=== PATIENT | male | born 1990 | race Two or more races ===

== ENCOUNTER 2021-02-23 17:11 | Emergency (ER) | payer MEDICAID, SELFPAY ==
--- NOTE | ~2021-02-23 | XR_ITS ---
EXAMINATION: XR CHEST CLINICAL INFORMATION: Chest pain COMPARISON: None TECHNIQUE: Frontal view of the chest was obtained. FINDINGS: No significant abnormality is noted involving the heart, lungs, mediastinum, bony thorax or soft tissues. Tiny area of atelectasis/scarring noted at the left costophrenic angle. XR/XR chest 1V IMPRESSION: No acute intrathoracic disease.
--- NOTE | ~2021-02-23 | XR_ITS ---
EXAMINATION: XR SHOULDER, RIGHT CLINICAL INFORMATION: Fall COMPARISON: None TECHNIQUE: Three views of the right shoulder. FINDINGS: Elevation of the distal right clavicle in relation to the acromion process. Irregularity of the distal right clavicle suggesting nondisplaced fracture. There is subtle cortical irregularity in the region of the coronoid process concerning for a fracture. The humeral head demonstrates good articulation with the glenoid fossa. Visualized right-sided ribs demonstrate no fracture. No right-sided pneumothorax. XR/XR shoulder RT min 2V IMPRESSION: Right AC joint separation with cortical irregularity of the distal clavicle suggesting nondisplaced fracture. There is also suggestion of a subtle fracture involving the coronoid process.
--- NOTE | 2021-02-23 17:33 | ECG_ITS ---
Test Reason : CHEST PAIN Blood Pressure : / mmHG Vent. Rate : 105 BPM Atrial Rate : 105 BPM P-R Int : 116 ms QRS Dur : 090 ms QT Int : 344 ms P-R-T Axes : 057 024 033 degrees QTc Int : 454 ms Sinus tachycardia Otherwise normal ECG No previous ECGs available Referred By: Generic ED Physician Electronically Signed By:MICHAEL PRUITT
[2021-02-23 17:35] VITALS: BP 129/86; PULSE 111; RESP 18; TEMP 37.2; O2SAT 97; BMI 29.9
[2021-02-23 17:54] LABS: MANUAL DIFF FLAG NO
[2021-02-23 17:56] LABS: Basophils Percent Auto 0.4 % (0-2); Eosinophils Absolute Auto 0.3 X10*3/uL (0.0-0.4); Eosinophils Percent Auto 2.6 % (0-4); Hematocrit 44.6 % (42-52); Hemoglobin 15.5 g/dl (14.0-18.0); Imm Gran Abs Auto 0.38 X10*3/uL (0.00-0.03); Imm Gran Pct Auto 3.6 % (0.0-0.4); Lymphocytes Absolute Auto 2.1 X10*3/uL (1.2-4.9); Lymphocytes Percent Auto 20.2 % (20-40); Mean Corpuscular HGB Conc 34.8 g/dl (31.0-36.0); Mean Corpuscular Hemoglobin 30.3 pg (27.0-33.0); Mean Corpuscular Volume 87.1 fL (80-98); Mean Platelet Volume 9.1 fL (9.4-12.4); Monocytes Absolute Auto 0.8 X10*3/uL (0.1-1.2); Monocytes Percent Auto 7.7 % (2-11); Neutrophils Absolute Auto 6.9 X10*3/uL (2.0-8.3); Neutrophils Percent Auto 65.5 % (45-73); Platelet Count 292 X10*3/uL (160-400); Red Blood Count 5.12 X10*6/uL (4.60-5.80); Red Cell Distribution Width 12.1 % (11.0-16.0); White Blood Count 10.5 X10*3/uL (4.8-10.8)
[2021-02-23 18:26] LABS: Anion Gap 17 (12-20); Blood Urea Nitrogen 14 mg/dL (9-16); Calcium 8.6 mg/dL (8.4-10.2); Carbon Dioxide 19 mmol/L (22-29); Chloride 105 mmol/L (96-108); Creatinine Clr Calc Pharmacy 149.5; Estimated Glomerular Filt Rate > 60; Glucose Random 127 mg/dL (60-115); Potassium 4.4 mmol/L (3.3-5.1); Sodium 137 mmol/L (135-145)
[2021-02-23 18:33] LABS: Troponin-I High Sensitivity 3.7 ng/L (<3.5-35.0)
[2021-02-23 19:03] LABS: D Dimer < 200 NG/ML
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
[2021-02-23] MEDS: Ketorolac Tromethamine 15 MG/ML VIAL 60 MG IM (20:28)
== END 2021-02-23 20:18 | disposition home or self-care (01) ==
PROVIDERS: Physician Assistant; Emergency Provider Emergency Medicine
DX: S43.101A Unspecified dislocation of right acromioclavicular joint, initial encounter (principal); V13.4XXA Pedal cycle driver injured in collision with car, pick-up truck or van in traffic accident, initial encounter; Y93.89 Activity, other specified; Y92.414 Local residential or business street as the place of occurrence of the external cause; Y99.9 Unspecified external cause status
CPT/HCPCS: 36415; 71045; 73030; 80048; 84484; 85025; 85379; 93005; 96372; 99284; J1885

== ENCOUNTER 2021-02-27 06:43 | Emergency (ER) | payer MEDICAID, SELFPAY ==
--- NOTE | 2021-02-27 | ECG_ITS ---
Test Reason : CP Blood Pressure : / mmHG Vent. Rate : 080 BPM Atrial Rate : 080 BPM P-R Int : 118 ms QRS Dur : 088 ms QT Int : 384 ms P-R-T Axes : 032 -08 020 degrees QTc Int : 442 ms Artfiact in tracing Normal sinus rhythm Normal ECG When compared with ECG of 23-FEB-2021 17:44, No significant change was found Referred By: Generic ED Physician Electronically Signed By:MICHAEL PRUITT
--- NOTE | ~2021-02-27 | XR_ITS ---
EXAMINATION: XR CHEST CLINICAL INFORMATION: Chest pain COMPARISON: Chest 02/23/2021 TECHNIQUE: Frontal view of the chest was obtained. FINDINGS: The lungs are hypoexpanded but clear. The heart size is enlarged. The pulmonary vascularity is normal. No gross bony abnormality seen. XR/XR chest 1V IMPRESSION: Mild cardiomegaly. No acute process.
[2021-02-27 06:47] VITALS: BP 140/96; PULSE 84; RESP 16; TEMP 36.4; O2SAT 97; BMI 36.2
[2021-02-27 06:55] LABS: MANUAL DIFF FLAG NO
--- NOTE | 2021-02-27 07:01 | ED_ITS ---
HPI - Chest Pain General Chief Complaint: Chest Pain Stated Complaint: chest pain Time Seen by Provider: 02/27/21 07:01 Source: patient Mode of arrival: ambulatory Limitations: no limitations History of Present Illness HPI narrative: This is a 31 years old male presented to the emergency department with a chief complaint of right-sided chest pain. Pain started about an hour ago he describes the pain as sharp in the right side of the chest without radiation, denies any shortness of breath. MD complaint: chest pain Onset (ago): hour(s) (1) Timing of current episode: constant Prior episodes: No Onset: during rest Pain location: right chest Pain radiation: none Severity: moderate Quality: sharp Relieving factors: nothing Exacerbating factors: inspiration Treatment prior to arrival: none Risk Factors Coronary artery disease risk factors: none Related Data Previous Rx's Medication Instructions Recorded ketorolac 10 mg tablet 10 mg PO Q8H PRN #10 tab 02/23/21 Allergies Allergy/AdvReac Type Severity Reaction Status Date / Time bee pollen [BEE STINGS] Allergy Unknown SWELLING Verified 02/27/21 06:52 Review of Systems Review of Systems: Yes all other systems are reviewed and are negative Constitutional: Constitutional: Denies fever(s) Cardiovascular: Cardiovascular: Denies chest pain with activity Respiratory: Respiratory: Denies cough Gastrointestinal: Gastrointestinal: Denies diarrhea and Denies nausea Psychiatric: Psychiatric: Reports no additional psychiatric complaints [facility] Social History Social History (Updated 02/27/21 @ 07:07 by Jovani Jones MD) Patient Tobacco Use Status: Never used Tobacco Smoked in Last 30 Days: Yes Use of substances other than those prescribed or required for medical reasons: Yes Substance Use Type: Marijuana Substance Use Frequency: Daily Last Used Substance: Hours (ago) Any prior treatment program specific to substance use: No Advance Directives: No Advance Directives Information Provided: No Physical Exam Vital Signs: Vital Signs: Last Vital Signs Temp 97.6 F 02/27/21 07:22 Pulse 86 02/27/21 08:05 Resp 19 02/27/21 08:05 BP 132/90 H 02/27/21 08:05 Pulse Ox 97 02/27/21 08:05 Body Mass Index 36.2 Const: General: cooperative and healthy appearing Nutritional Appearance: average body habitus Orientation/consciousness: oriented to person, oriented to place and oriented to time HENMT: Head: Yes normal to inspection, Yes normocephalic and Yes atraumatic Ears: hearing grossly normal bilaterally General nose exam: Normal external nose present Face and sinus: Yes normal facial exam Mouth: Normal oral and palatal mucosa present Neck: Neck: Yes normal visual inspection and Yes full ROM Chest: Chest palpation & inspection: normal inspection of the chest Resp: Effort & Inspection: normal respiratory effort and no respiratory distress Auscultation: clear to auscultation bilaterally Cardio: Jugular venous distension: no JVD Rate: regular rate Rhythm: regular rhythm GI: Inspection: Yes normal to inspection Palpation (GI): Soft to palpation, not firm, nontender and no guarding Skin: General skin exam: no rashes or lesions noted, elasticity normal and turgor normal Rashes: no rashes Neuro: General: oriented to person, oriented to place and oriented to time Course Reevaluation(s) Reevaluation #1: PATIENT WAS RE-EXAMINED AT 10:50 A IS CURRENTLY ASYMPTOMATIC IS CHEST PAIN IS GONE, DELTA TROPONIN IS NEGATIVE I THINK THIS PATIENT CAN BE SAFELY DISCHARGED HOME WITH FOLLOW-UP WITH HIS PRIMARY CARE PHYSICIAN HIS HEART SCORE IS 0 MDM - Chest Pain Lab Data Result diagrams: 02/27/21 06:50 02/27/21 06:50 Labs: Lab Results 02/27/21 02/27/21 02/27/21 Range/Units 06:50 06:50 06:50 WBC 9.2 (4.8-10.8) X10*3/uL RBC 5.46 (4.60-5.80) X10*6/uL Hgb 16.5 (14.0-18.0) g/dl Hct 47.8 (42-52) % MCV 87.5 (80-98) fL MCH 30.2 (27.0-33.0) pg MCHC 34.5 (31.0-36.0) g/dl RDW 12.2 (11.0-16.0) % Plt Count 290 (160-400) X10*3/uL MPV 9.0 L (9.4-12.4) fL Immature Gran % (Auto) 4.9 H (0.0-0.4) % Neut % (Auto) 51.8 (45-73) % Lymph % (Auto) 28.5 (20-40) % [place] % (Auto) 10.3 (2-11) % Eos % (Auto) 3.8 (0-4) % Baso % (Auto) 0.7 (0-2) % Lymph # (Auto) 2.6 (1.2-4.9) X10*3/uL [place] # (Auto) 0.9 (0.1-1.2) X10*3/uL Eos # (Auto) 0.4 (0.0-0.4) X10*3/uL Baso # (Auto) 0.1 (0.0-0.2) X10*3/uL Abs Immat Gran (auto) 0.45 H (0.00-0.03) X10*3/uL Absolute Neuts (auto) 4.8 (2.0-8.3) X10*3/uL Absolute Nucleated RBC 0.000 (0.0-0.012) X10*3/uL Nucleated RBC % (auto) 0.0 (0.0-0.2) /100WBC D-Dimer NG/ML Sodium 137 (135-145) mmol/L Potassium 4.7 (3.3-5.1) mmol/L Chloride 102 (96-108) mmol/L Carbon Dioxide 26 (22-29) mmol/L Anion Gap 14 (12-20) BUN 15 (9-16) mg/dL Creatinine 0.75 (0.5-1.4) mg/dL Estim Creat Clear Calc 188.1 Estimated GFR > 60 Random Glucose 90 (60-115) mg/dL Calcium 9.5 D (8.4-10.2) mg/dL Total Bilirubin (0.0-1.0) mg/dL Direct Bilirubin (0.0-0.5) mg/dL AST (5-37) U/L ALT (0-40) U/L Alkaline Phosphatase (39-117) U/L Troponin I High Sens 3.8 (<3.5-35.0) ng/L Total Protein (6.5-8.0) g/dL Albumin (3.5-5.0) g/dL 02/27/21 02/27/21 02/27/21 Range/Units 08:03 08:03 09:51 WBC (4.8-10.8) X10*3/uL RBC (4.60-5.80) X10*6/uL Hgb (14.0-18.0) g/dl Hct (42-52) % MCV (80-98) fL MCH (27.0-33.0) pg MCHC (31.0-36.0) g/dl RDW (11.0-16.0) % Plt Count (160-400) X10*3/uL MPV (9.4-12.4) fL Immature Gran % (Auto) (0.0-0.4) % Neut % (Auto) (45-73) % Lymph % (Auto) (20-40) % [place] % (Auto) (2-11) % Eos % (Auto) (0-4) % Baso % (Auto) (0-2) % Lymph # (Auto) (1.2-4.9) X10*3/uL [place] # (Auto) (0.1-1.2) X10*3/uL Eos # (Auto) (0.0-0.4) X10*3/uL Baso # (Auto) (0.0-0.2) X10*3/uL Abs Immat Gran (auto) (0.00-0.03) X10*3/uL Absolute Neuts (auto) (2.0-8.3) X10*3/uL Absolute Nucleated RBC (0.0-0.012) X10*3/uL Nucleated RBC % (auto) (0.0-0.2) /100WBC D-Dimer < 200 NG/ML Sodium (135-145) mmol/L Potassium (3.3-5.1) mmol/L Chloride (96-108) mmol/L Carbon Dioxide (22-29) mmol/L Anion Gap (12-20) BUN (9-16) mg/dL Creatinine (0.5-1.4) mg/dL Estim Creat Clear Calc Estimated GFR Random Glucose (60-115) mg/dL Calcium (8.4-10.2) mg/dL Total Bilirubin 0.3 (0.0-1.0) mg/dL Direct Bilirubin < 0.2 (0.0-0.5) mg/dL AST 81 H (5-37) U/L ALT 187 H (0-40) U/L Alkaline Phosphatase 52 (39-117) U/L Troponin I High Sens 3.7 (<3.5-35.0) ng/L Total Protein 6.7 (6.5-8.0) g/dL Albumin 3.9 (3.5-5.0) g/dL ECG Data ECG #1: ECG interpretation date: 02/27/21 ECG interpretation time: 07:10 Pacemaker model: Normal sinus rhythm a rate 85 ST-T segment isoelectric no ischemic changes Discharge Plan Discharge Clinical Impression: Chest pain Patient Disposition: Home, Self-Care Instructions: Chest Pain (ED) Prescriptions: No Action ketorolac 10 mg tablet 10 mg PO Q8H PRN (Reason: pain) Qty: 10 RF: 0 Referrals: Elvira Fu RN [Emergency Nurse] - 2 days
[2021-02-27 07:09] LABS: Basophils Absolute Auto 0.1 X10*3/uL (0.0-0.2); Basophils Percent Auto 0.7 % (0-2); Eosinophils Absolute Auto 0.4 X10*3/uL (0.0-0.4); Eosinophils Percent Auto 3.8 % (0-4); Hematocrit 47.8 % (42-52); Hemoglobin 16.5 g/dl (14.0-18.0); Imm Gran Abs Auto 0.45 X10*3/uL (0.00-0.03); Imm Gran Pct Auto 4.9 % (0.0-0.4); Lymphocytes Absolute Auto 2.6 X10*3/uL (1.2-4.9); Lymphocytes Percent Auto 28.5 % (20-40); Mean Corpuscular HGB Conc 34.5 g/dl (31.0-36.0); Mean Corpuscular Hemoglobin 30.2 pg (27.0-33.0); Mean Corpuscular Volume 87.5 fL (80-98); Monocytes Absolute Auto 0.9 X10*3/uL (0.1-1.2); Monocytes Percent Auto 10.3 % (2-11); Neutrophils Absolute Auto 4.8 X10*3/uL (2.0-8.3); Neutrophils Percent Auto 51.8 % (45-73); Platelet Count 290 X10*3/uL (160-400); Red Blood Count 5.46 X10*6/uL (4.60-5.80); Red Cell Distribution Width 12.2 % (11.0-16.0); White Blood Count 9.2 X10*3/uL (4.8-10.8)
[2021-02-27] MEDS: Ketorolac Tromethamine 15 MG/ML VIAL IVPUSH (07:18)
[2021-02-27 07:19] LABS: Troponin-I High Sensitivity 3.8 ng/L (<3.5-35.0)
[2021-02-27 07:21] LABS: Anion Gap 14 (12-20); Blood Urea Nitrogen 15 mg/dL (9-16); Calcium 9.5 mg/dL (8.4-10.2); Carbon Dioxide 26 mmol/L (22-29); Chloride 102 mmol/L (96-108); Creatinine Clr Calc Pharmacy 188.1; Estimated Glomerular Filt Rate > 60; Glucose Random 90 mg/dL (60-115); Potassium 4.7 mmol/L (3.3-5.1); Sodium 137 mmol/L (135-145)
[2021-02-27 07:22] VITALS: BP 132/88; PULSE 80; RESP 23; TEMP 36.4; O2SAT 98
--- NOTE | 2021-02-27 07:43 | PC.NURSE ---
Pt alert and oriented x3, reports right sided chest pain that started approximately an hour ago. He states the pain does not radiate. Pt is NS on monitor. No sob, no difficulty breathing. No apparent distress noted. LS clear bilaterally. Pt resting quietly, awaiting chest x-ray. Mother at bedside. Medication given as documented.
[2021-02-27 08:05] VITALS: BP 132/90; PULSE 86; RESP 19; O2SAT 97
[2021-02-27 08:34] LABS: D Dimer < 200 NG/ML
[2021-02-27 09:01] LABS: Alanine Aminotransferase 187 U/L (0-40); Albumin Level 3.9 g/dL (3.5-5.0); Alkaline Phosphatase 52 U/L (39-117); Aspartate Amino Transferase 81 U/L (5-37); Bilirubin Direct < 0.2 mg/dL (0.0-0.5); Bilirubin Total 0.3 mg/dL (0.0-1.0); Total Protein 6.7 g/dL (6.5-8.0)
[2021-02-27 10:27] LABS: Troponin-I High Sensitivity 3.7 ng/L (<3.5-35.0)
== END 2021-02-27 11:08 | disposition home or self-care (01) ==
PROVIDERS: Emergency Provider Emergency Medicine
DX: R07.9 Chest pain, unspecified (principal)
CPT/HCPCS: 36415; 71045; 80048; 80076; 84484; 85025; 85379; 93005; 96374; 99285; J1885

== ENCOUNTER 2021-04-22 15:17 | Emergency (ER) | payer MEDICAID, SELFPAY ==
[2021-04-22 15:25] VITALS: BP 140/94; PULSE 98; O2SAT 97
[2021-04-22 15:58] VITALS: BP 167/81; PULSE 91; RESP 18; TEMP 37.1; O2SAT 98; BMI 33.9
== END 2021-04-22 20:24 | disposition left against medical advice (07) ==
LOC: HO.ED 20:12
PROVIDERS: Emergency Provider Emergency Medicine
DX: L23.9 Allergic contact dermatitis, unspecified cause (principal)
CPT/HCPCS: 99281

== ENCOUNTER 2021-05-17 11:17 | Emergency (ER) | payer MEDICAID, SELFPAY ==
--- NOTE | ~2021-05-17 | XR_ITS ---
EXAMINATION: XR CHEST CLINICAL INFORMATION: Cough. COMPARISON: 02/27/2021 chest radiograph. TECHNIQUE: Frontal view of the chest was obtained. FINDINGS: No significant abnormality is noted involving the heart, lungs, mediastinum, bony thorax or soft tissues. XR/XR chest 1V IMPRESSION: No acute cardiopulmonary process.
[2021-05-17 11:26] VITALS: BP 142/118; PULSE 80; O2SAT 99
[2021-05-17 12:32] VITALS: BP 148/99; PULSE 72; RESP 18; TEMP 36.6; O2SAT 100; BMI 42.3
--- NOTE | 2021-05-17 12:32 | ED_ITS ---
HPI - Nausea/Vomiting/Diarrhea General Chief complaint: General Medical <Alba Corona NP - Last Filed: 05/17/21 18:45> Stated complaint: NAUSEA/VOMITING/COUGH <Alba Corona NP - Last Filed: 05/17/21 18:45> Time Seen by Provider: 05/17/21 12:32 <Alba Corona NP - Last Filed: 05/17/21 18:45> Related Data Home medications: Previous Rx's Medication Instructions Recorded ketorolac 10 mg tablet 10 mg PO Q8H PRN #10 tab 02/23/21 ondansetron 4 mg disintegrating 4 mg PO Q6H #14 tab 05/17/21 tablet <Alba Corona NP - Last Filed: 05/17/21 18:45> Allergies/Adverse reactions: Allergies Allergy/AdvReac Type Severity Reaction Status Date / Time bee pollen [BEE STINGS] Allergy Unknown SWELLING Verified 02/27/21 06:52 seafood Allergy Itching Verified 04/22/21 15:57 <Alba Corona NP - Last Filed: 05/17/21 18:45> [facility] Past Medical History Medical History: Medical History HTN (hypertension) TBI (traumatic brain injury) <Alba Corona NP - Last Filed: 05/17/21 18:45> Social History Social History: Social History Patient Tobacco Use Status: Never used Tobacco Substance Use Type: Marijuana Advance Directives: Yes Advance Directives Information Provided: Yes Advance Directives on File: No <Alba Corona NP - Last Filed: 05/17/21 18:45> Physical Exam Vital Signs: Vital Signs: Last Vital Signs Temp 97.8 F 05/17/21 12:32 Pulse 72 05/17/21 12:32 Resp 18 05/17/21 12:32 BP 148/99 H 05/17/21 12:32 Pulse Ox 100 05/17/21 12:32 BMI result Body Mass Index 42.3 <Alba Corona NP - Last Filed: 05/17/21 18:45> Vital Signs: Last Vital Signs Temp 97.8 F 05/17/21 12:32 Pulse 72 05/17/21 12:32 Resp 18 05/17/21 12:32 BP 148/99 H 05/17/21 12:32 Pulse Ox 100 05/17/21 12:32 BMI result Body Mass Index 42.3 <Carlos Lilly DO - Last Filed: 08/03/21 11:10> Course Course Course Narrative: 1230-This is a rapid medical exam. 31yo male here with nausea/vomiting since last evening with streaks of blood, nasal congestion, chest discomfort with deep breathing, cough, subjective fevers, chills. No abdominal pain or diarrhea. Well appearing. VSS. Will check rapid covid, CXR, labs. Deferred additional HPI, ROS, PE to primary provider. <Alba Corona NP - Last Filed: 05/17/21 18:45> MDM - Nausea/Vomiting/Diarrhea Lab Data Result diagrams: : 05/17/21 13:55 05/17/21 13:55 <Alba Corona NP - Last Filed: 05/17/21 18:45> Labs: Lab Results 05/17/21 05/17/21 05/17/21 Range/Units 13:52 13:55 13:55 WBC 9.4 (4.8-10.8) X10*3/uL RBC 5.23 (4.60-5.80) X10*6/uL Hgb 15.9 (14.0-18.0) g/dl Hct 46.6 (42-52) % MCV 89.1 (80-98) fL MCH 30.4 (27.0-33.0) pg MCHC 34.1 (31.0-36.0) g/dl RDW 12.2 (11.0-16.0) % Plt Count 254 (160-400) X10*3/uL MPV 9.0 L (9.4-12.4) fL Immature Gran % (Auto) 1.2 H (0.0-0.4) % Neut % (Auto) 63.9 (45-73) % Lymph % (Auto) 19.4 L (20-40) % Kinney % (Auto) 11.0 (2-11) % Eos % (Auto) 4.1 H (0-4) % Baso % (Auto) 0.4 (0-2) % Lymph # (Auto) 1.8 (1.2-4.9) X10*3/uL Kinney # (Auto) 1.0 (0.1-1.2) X10*3/uL Eos # (Auto) 0.4 (0.0-0.4) X10*3/uL Baso # (Auto) 0.0 (0.0-0.2) X10*3/uL Abs Immat Gran (auto) 0.11 H (0.00-0.03) X10*3/uL Absolute Neuts (auto) 6.0 (2.0-8.3) X10*3/uL Absolute Nucleated RBC 0.000 (0.0-0.012) X10*3/uL Nucleated RBC % (auto) 0.0 (0.0-0.2) /100WBC Sodium 137 (135-145) mmol/L Potassium 4.2 (3.3-5.1) mmol/L Chloride 102 (96-108) mmol/L Carbon Dioxide 28 (22-29) mmol/L Anion Gap 11 L (12-20) BUN 11 (9-16) mg/dL Creatinine 0.86 (0.5-1.4) mg/dL Estim Creat Clear Calc 177.9 Estimated GFR > 60 Random Glucose 87 (60-115) mg/dL Calcium 8.9 D (8.4-10.2) mg/dL Total Bilirubin 1.1 H (0.0-1.0) mg/dL AST 18 D (5-37) U/L ALT 23 (0-40) U/L Alkaline Phosphatase 68 D (39-117) U/L Total Protein 7.1 (6.5-8.0) g/dL Albumin 4.1 (3.5-5.0) g/dL COVID-19 (GIRISH) Negative (Negative) COVID-19 Clin Com See Note <Alba Corona, COLLINS - Last Filed: 05/17/21 18:45> Lab Results 05/17/21 05/17/21 05/17/21 Range/Units 13:52 13:55 13:55 WBC 9.4 (4.8-10.8) X10*3/uL RBC 5.23 (4.60-5.80) X10*6/uL Hgb 15.9 (14.0-18.0) g/dl Hct 46.6 (42-52) % MCV 89.1 (80-98) fL MCH 30.4 (27.0-33.0) pg MCHC 34.1 (31.0-36.0) g/dl RDW 12.2 (11.0-16.0) % Plt Count 254 (160-400) X10*3/uL MPV 9.0 L (9.4-12.4) fL Immature Gran % (Auto) 1.2 H (0.0-0.4) % Neut % (Auto) 63.9 (45-73) % Lymph % (Auto) 19.4 L (20-40) % Kinney % (Auto) 11.0 (2-11) % Eos % (Auto) 4.1 H (0-4) % Baso % (Auto) 0.4 (0-2) % Lymph # (Auto) 1.8 (1.2-4.9) X10*3/uL Kinney # (Auto) 1.0 (0.1-1.2) X10*3/uL Eos # (Auto) 0.4 (0.0-0.4) X10*3/uL Baso # (Auto) 0.0 (0.0-0.2) X10*3/uL Abs Immat Gran (auto) 0.11 H (0.00-0.03) X10*3/uL Absolute Neuts (auto) 6.0 (2.0-8.3) X10*3/uL Absolute Nucleated RBC 0.000 (0.0-0.012) X10*3/uL Nucleated RBC % (auto) 0.0 (0.0-0.2) /100WBC Sodium 137 (135-145) mmol/L Potassium 4.2 (3.3-5.1) mmol/L Chloride 102 (96-108) mmol/L Carbon Dioxide 28 (22-29) mmol/L Anion Gap 11 L (12-20) BUN 11 (9-16) mg/dL Creatinine 0.86 (0.5-1.4) mg/dL Estim Creat Clear Calc 177.9 Estimated GFR > 60 Random Glucose 87 (60-115) mg/dL Calcium 8.9 D (8.4-10.2) mg/dL Total Bilirubin 1.1 H (0.0-1.0) mg/dL AST 18 D (5-37) U/L ALT 23 (0-40) U/L Alkaline Phosphatase 68 D (39-117) U/L Total Protein 7.1 (6.5-8.0) g/dL Albumin 4.1 (3.5-5.0) g/dL COVID-19 ([facility]IR[facility]) Negative (Negative) COVID-19 Clin Com See Note <Carlos Lilly DO - Last Filed: 08/03/21 11:10> Discharge Plan Discharge Clinical Impression: URI (upper respiratory infection), COVID <Alba Corona NP - Last Filed: 05/17/21 18:45> Patient Disposition: Home, Self-Care <Alba Corona NP - Last Filed: 05/17/21 18:45> Instructions: Acute Bronchitis (ED), Viral Syndrome (ED) <Alba Corona NP - Last Filed: 05/17/21 18:45> Additional Instructions: Please quarantine at home you likely have COVID we will call you with your COVID results if you have any other concerns please do not hesitate to come back to emergency department. <Alba Corona NP - Last Filed: 05/17/21 18:45> Prescriptions: New ondansetron 4 mg tablet,disintegrating 4 mg PO Q6H Qty: 14 RF: 0 No Action ketorolac 10 mg tablet 10 mg PO Q8H PRN (Reason: pain) Qty: 10 RF: 0 <Alba Corona NP - Last Filed: 05/17/21 18:45> Stand Alone Forms: Work/School Release <Alba Corona NP - Last Filed: 05/17/21 18:45> Interventions: ED Discharge Assessment Last Done: 05/17/21 14:22 <Alba Corona NP - Last Filed: 05/17/21 18:45> Discharge Date/Time: 05/17/21 14:24 <Alba Corona NP - Last Filed: 05/17/21 18:45>
--- NOTE | 2021-05-17 13:58 | ED.URI ---
HPI - URI/Sore Throat General Chief Complaint: General Medical Stated Complaint: NAUSEA/VOMITING/COUGH Time Seen by Provider: 05/17/21 12:32 Source: patient Mode of arrival: ambulatory Limitations: no limitations History of Present Illness HPI Narrative: 31-year-old male presents emergency department after starting with upper respiratory symptoms last night. Runny nose aches fevers. Patient is unvaccinated for COVID he has no significant medical problems he complained of nausea and vomiting when he checked in but denies nausea vomiting for me. MD elicited complaint: fever, cough, sore throat, rhinorrhea and nasal congestion Related Data Previous Rx's Medication Instructions Recorded ketorolac 10 mg tablet 10 mg PO Q8H PRN #10 tab 02/23/21 ondansetron 4 mg disintegrating 4 mg PO Q6H #14 tab 05/17/21 tablet Allergies Allergy/AdvReac Type Severity Reaction Status Date / Time bee pollen [BEE STINGS] Allergy Unknown SWELLING Verified 02/27/21 06:52 seafood Allergy Itching Verified 04/22/21 15:57 Review of Systems Review of Systems: Review of systems: General: fever chills Patient denies any recent illness or falls Musculoskeletal: body aches Denies back pain oror other injuries HEENT: runny nose denies headache, , ear pain Respiratory: cough denies shortness of breath, Cardiovascular: no chest pain or palpitations : denies dysuria, frequency Abdomen: no nausea vomiting denies abdominal pain Extremities: no swelling, no pain Skin: no diaphoresis Yes all other systems are reviewed and are negative PMFSH Social History Social History (Updated 02/27/21 @ 07:07 by Jovani Jones MD) Patient Tobacco Use Status: Never used Tobacco Substance Use Type: Marijuana Advance Directives: No Advance Directives Information Provided: No Advance Directives on File: No Physical Exam Vital Signs: Vital Signs: Last Vital Signs Temp 97.8 F 05/17/21 12:32 Pulse 72 05/17/21 12:32 Resp 18 05/17/21 12:32 BP 148/99 H 05/17/21 12:32 Pulse Ox 100 05/17/21 12:32 Body Mass Index 42.3 General: Well-appearing well-nourished in no signs of distress HEENT: Normocephalic atraumatic Neck: No signs of JVD, no masses no tenderness or lymphadenopathy Cardiovascular: Regular rate and rhythm Respiratory: Clear to auscultation bilaterally Abdomen: Soft nontender no masses Extremities: Normal pedal pulses no signs of edema Skin: Dry warm no rashes Back: No tenderness full ROM MDM - URI/Sore Throat MDM Narrative Medical decision making narrative: Patient with upper respiratory infection versus bronchitis versus viral infection versus COVID. I will send a COVID swab on discharge the patient home with PCP follow-up. Discharge Plan Discharge Clinical Impression: URI (upper respiratory infection), COVID Patient Disposition: Home, Self-Care Instructions: Acute Bronchitis (ED), Viral Syndrome (ED) Additional Instructions: Please quarantine at home you likely have COVID we will call you with your COVID results if you have any other concerns please do not hesitate to come back to emergency department. Prescriptions: New ondansetron 4 mg tablet,disintegrating 4 mg PO Q6H Qty: 14 RF: 0 No Action ketorolac 10 mg tablet 10 mg PO Q8H PRN (Reason: pain) Qty: 10 RF: 0 Stand Alone Forms: Work/School Release
[2021-05-17 14:01] LABS: MANUAL DIFF FLAG NO
[2021-05-17 14:03] LABS: Basophils Percent Auto 0.4 % (0-2); Eosinophils Absolute Auto 0.4 X10*3/uL (0.0-0.4); Eosinophils Percent Auto 4.1 % (0-4); Hematocrit 46.6 % (42-52); Hemoglobin 15.9 g/dl (14.0-18.0); Imm Gran Abs Auto 0.11 X10*3/uL (0.00-0.03); Imm Gran Pct Auto 1.2 % (0.0-0.4); Lymphocytes Absolute Auto 1.8 X10*3/uL (1.2-4.9); Lymphocytes Percent Auto 19.4 % (20-40); Mean Corpuscular HGB Conc 34.1 g/dl (31.0-36.0); Mean Corpuscular Hemoglobin 30.4 pg (27.0-33.0); Mean Corpuscular Volume 89.1 fL (80-98); Neutrophils Percent Auto 63.9 % (45-73); Platelet Count 254 X10*3/uL (160-400); Red Blood Count 5.23 X10*6/uL (4.60-5.80); Red Cell Distribution Width 12.2 % (11.0-16.0); White Blood Count 9.4 X10*3/uL (4.8-10.8)
--- NOTE | 2021-05-17 14:08 | PC.NURSE ---
AMBULATORY INTO [facility], GAIT STEADY PT EVALUATED BY DR ARIAS UPON ARRIVAL TO [facility]. PT AWAKE, ALERT AND ORIENTED X 3. SKIN WARM AND DRY. RESP UNLABORED. SPEAKING IN FULL CLEAR SENTENCES. C/O MILD NAUSEA. PLAN IS FOR MEDICATION AND DISCHARGE. PT AGREEABLE TO THIS PLAN.
[2021-05-17 14:17] LABS: COVID-19 Test Negative (Negative)
[2021-05-17] MEDS: Ketorolac Tromethamine 15 MG/ML VIAL IM (14:17)
[2021-05-17] MEDS: Acetaminophen 325 MG TABLET 650 MG PO (14:18)
[2021-05-17] MEDS: Ondansetron ODT 4 MG TAB.RAPDIS TRANSLINGU (14:18)
[2021-05-17 14:20] LABS: Alanine Aminotransferase 23 U/L (0-40); Albumin Level 4.1 g/dL (3.5-5.0); Alkaline Phosphatase 68 U/L (39-117); Anion Gap 11 (12-20); Aspartate Amino Transferase 18 U/L (5-37); Bilirubin Total 1.1 mg/dL (0.0-1.0); Blood Urea Nitrogen 11 mg/dL (9-16); Calcium 8.9 mg/dL (8.4-10.2); Carbon Dioxide 28 mmol/L (22-29); Chloride 102 mmol/L (96-108); Creatinine Clr Calc Pharmacy 177.9; Estimated Glomerular Filt Rate > 60; Glucose Random 87 mg/dL (60-115); Potassium 4.2 mmol/L (3.3-5.1); Sodium 137 mmol/L (135-145); Total Protein 7.1 g/dL (6.5-8.0)
== END 2021-05-17 14:24 | disposition home or self-care (01) ==
PROVIDERS: Emergency Provider Student in an Organized Health Care Education/Training Program
DX: U07.1 COVID-19 (principal); J06.9 Acute upper respiratory infection, unspecified; R11.2 Nausea with vomiting, unspecified; R05.9 Cough, unspecified; Z79.899 Other long term (current) drug therapy
CPT/HCPCS: 36415; 71045; 80053; 85025; 87635; 96372; 99283; 99284; J1885

== ENCOUNTER 2021-07-20 07:24 | Emergency (ER) | payer OTHER, SELFPAY ==
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
--- NOTE | 2021-07-20 07:29 | ECG_ITS ---
Test Reason : CP Blood Pressure : / mmHG Vent. Rate : 056 BPM Atrial Rate : 056 BPM P-R Int : 138 ms QRS Dur : 098 ms QT Int : 402 ms P-R-T Axes : 034 -02 021 degrees QTc Int : 387 ms Sinus bradycardia with sinus arrhythmia Normal ECG When compared with ECG of 27-FEB-2021 06:51, QT has shortened Referred By: Generic ED Physician Electronically Signed By:MICHAEL PRUITT
[2021-07-20 07:32] VITALS: BP 186/95; PULSE 64; RESP 20; TEMP 36.4; O2SAT 100; BMI 57.2
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
[2021-07-20 08:06] VITALS: BP 163/105; PULSE 70; RESP 16; TEMP 36.7; O2SAT 99
[2021-07-20 08:07] LABS: MANUAL DIFF FLAG NO
[2021-07-20 08:10] LABS: Basophils Percent Auto 0.3 % (0-2); Eosinophils Absolute Auto 0.2 X10*3/uL (0.0-0.4); Eosinophils Percent Auto 3.4 % (0-4); Hematocrit 47.5 % (42.0-52.0); Hemoglobin 16.6 g/dl (14.0-18.0); Imm Gran Abs Auto 0.05 X10*3/uL (0.00-0.03); Imm Gran Pct Auto 0.8 % (0.0-0.4); Lymphocytes Absolute Auto 2.2 X10*3/uL (1.2-4.9); Lymphocytes Percent Auto 37.1 % (20-40); Mean Corpuscular HGB Conc 34.9 g/dl (31.0-36.0); Mean Corpuscular Hemoglobin 30.1 pg (27.0-33.0); Mean Corpuscular Volume 86.1 fL (80.0-98.0); Mean Platelet Volume 8.9 fL (9.4-12.4); Monocytes Absolute Auto 0.6 X10*3/uL (0.1-1.2); Monocytes Percent Auto 10.2 % (2-11); Neutrophils Absolute Auto 2.9 x10*3/uL (2.0-8.3); Neutrophils Percent Auto 48.2 % (45-73); Platelet Count 264 X10*3/uL (160-400); Red Blood Count 5.52 X10*6/uL (4.60-5.80); Red Cell Distribution Width 11.8 % (11.0-16.0); White Blood Count 5.9 X10*3/uL (4.8-10.8)
[2021-07-20] MEDS: Cyclobenzaprine HCl 10 MG TABLET PO (08:14)
[2021-07-20 08:24] LABS: COVID-19 Test Negative (Negative); D Dimer High Sensitivity < 150 NG/ML
[2021-07-20 08:27] LABS: Alanine Aminotransferase 19 U/L (0-40); Albumin Level 4.2 g/dL (3.5-5.0); Alkaline Phosphatase 61 U/L (39-117); Anion Gap 10 (12-20); Aspartate Amino Transferase 13 U/L (5-37); Bilirubin Direct 0.3 mg/dL (0.0-0.5); Bilirubin Total 0.8 mg/dL (0.0-1.0); Blood Urea Nitrogen 10 mg/dL (9-16); Calcium 9.2 mg/dL (8.4-10.2); Carbon Dioxide 27 mmol/L (22-29); Chloride 106 mmol/L (96-108); Estimated Glomerular Filt Rate > 60; Glucose Random 101 mg/dL (60-115); Lipase 27 U/L (8-78); Magnesium 2.1 mg/dL (1.6-2.6); Potassium 4.3 mmol/L (3.3-5.1); Sodium 139 mmol/L (135-145); Total Protein 7.5 g/dL (6.5-8.0)
[2021-07-20 08:30] LABS: Troponin-I High Sensitivity < 3.5 ng/L (<3.5-35.0)
[2021-07-20 10:16] VITALS: BP 136/94; PULSE 60; RESP 18
[2021-07-20 11:20] LABS: Troponin-I High Sensitivity < 3.5 ng/L (<3.5-35.0)
== END 2021-07-20 12:21 | disposition home or self-care (01) ==
PROVIDERS: Emergency Provider Emergency Medicine
DX: R07.89 Other chest pain (principal); I10 Essential (primary) hypertension; Z87.820 Personal history of traumatic brain injury; Z20.822 Contact with and (suspected) exposure to COVID-19
CPT/HCPCS: 36415; 71045; 80048; 80076; 83690; 83735; 84484; 85025; 85379; 87635; 93005; 99283; 99284

== ENCOUNTER 2021-08-04 14:24 | Emergency (ER) | payer OTHER, SELFPAY ==
--- NOTE | 2021-08-04 | ECG_ITS ---
Test Reason : nausea/vomiting Blood Pressure : / mmHG Vent. Rate : 065 BPM Atrial Rate : 065 BPM P-R Int : 124 ms QRS Dur : 104 ms QT Int : 408 ms P-R-T Axes : 032 001 012 degrees QTc Int : 424 ms Normal sinus rhythm with sinus arrhythmia Normal ECG When compared with ECG of 20-JUL-2021 07:32, No significant change was found Referred By: Generic ED Physician Electronically Signed By:MAYANK RIVERA MD
[2021-08-04 16:13] VITALS: BP 154/108; PULSE 78; RESP 18; TEMP 36.6; O2SAT 98; BMI 41.8
[2021-08-04 17:05] LABS: MANUAL DIFF FLAG NO
[2021-08-04 17:10] LABS: Basophils Percent Auto 0.4 % (0-2); Eosinophils Absolute Auto 0.1 X10*3/uL (0.0-0.4); Eosinophils Percent Auto 1.1 % (0-4); Hematocrit 50.6 % (42.0-52.0); Hemoglobin 17.4 g/dl (14.0-18.0); Imm Gran Abs Auto 0.08 X10*3/uL (0.00-0.03); Imm Gran Pct Auto 0.8 % (0.0-0.4); Lymphocytes Absolute Auto 3.2 X10*3/uL (1.2-4.9); Lymphocytes Percent Auto 30.4 % (20-40); Mean Corpuscular HGB Conc 34.4 g/dl (31.0-36.0); Mean Corpuscular Hemoglobin 29.8 pg (27.0-33.0); Mean Corpuscular Volume 86.6 fL (80.0-98.0); Monocytes Absolute Auto 0.7 X10*3/uL (0.1-1.2); Monocytes Percent Auto 6.3 % (2-11); Neutrophils Absolute Auto 6.4 x10*3/uL (2.0-8.3); Platelet Count 311 X10*3/uL (160-400); Red Blood Count 5.84 X10*6/uL (4.60-5.80); White Blood Count 10.5 X10*3/uL (4.8-10.8)
[2021-08-04 17:23] LABS: COVID-19 Test Negative (Negative); IDNOW Serial# 9DD0AD1C
[2021-08-04 17:28] LABS: Troponin-I High Sensitivity 4.5 ng/L (<3.5-35.0)
[2021-08-04 17:30] LABS: Alanine Aminotransferase 22 U/L (0-40); Albumin Level 4.4 g/dL (3.5-5.0); Alkaline Phosphatase 68 U/L (39-117); Anion Gap 15 (12-20); Aspartate Amino Transferase 20 U/L (5-37); Bilirubin Total 0.8 mg/dL (0.0-1.0); Blood Urea Nitrogen 11 mg/dL (9-16); Calcium 9.9 mg/dL (8.4-10.2); Carbon Dioxide 24 mmol/L (22-29); Chloride 105 mmol/L (96-108); Estimated Glomerular Filt Rate > 60; Glucose Fasting 98 mg/dL (60-99); Lipase 20 U/L (8-78); Potassium 4.7 mmol/L (3.3-5.1); Sodium 139 mmol/L (135-145); Total Protein 8.1 g/dL (6.5-8.0)
--- NOTE | 2021-08-04 23:09 | ED_ITS ---
HPI - Nausea/Vomiting/Diarrhea General Chief complaint: Nausea/Vomiting/Diarrhea Stated complaint: COUGH,N/V/D X'S DAYS,+VACCINES Time Seen by Provider: 08/04/21 23:08 Source: patient Mode of arrival: EMS History of Present Illness HPI Narrative: This is a 31-year-old male who is brought in by ambulance from home stating that he has had 5 days of nausea, vomiting, diarrhea and denies any contaminated food and denies any fever, chills but states he has had loss of taste and smell and denies being COVID-19 vaccinated. He states he thinks he may have been exposed to COVID-19. Patient has had no further symptoms since being here in the emergency room. Related Data Previous Rx's Medication Instructions Recorded ketorolac 10 mg tablet 10 mg PO Q8H PRN #10 tab 02/23/21 ondansetron 4 mg disintegrating 4 mg PO Q6H #14 tab 05/17/21 tablet ondansetron 4 mg disintegrating 4 mg PO Q8H PRN #10 tab 08/04/21 tablet omeprazole 20 mg capsule,delayed 20 mg PO DAILY #30 cap 08/05/21 release Allergies Allergy/AdvReac Type Severity Reaction Status Date / Time bee pollen [BEE STINGS] Allergy Unknown SWELLING Verified 08/04/21 16:13 seafood Allergy Itching Verified 08/04/21 16:13 Review of Systems Review of Systems: Pertinent positives and negatives as stated in HPI 10 point review of systems is otherwise negative. PMFSH Past Medical History Source: nursing notes reviewed Medical History HTN (hypertension) TBI (traumatic brain injury) Social History Social History Patient Tobacco Use Status: Never used Tobacco Substance Use Type: Marijuana Advance Directives: No Advance Directives Information Provided: Yes Physical Exam Vital Signs: Vital Signs: Last Vital Signs Temp 97.8 F 08/05/21 00:45 Pulse 67 08/05/21 00:45 Resp 17 08/05/21 00:45 BP 145/91 H 08/05/21 00:45 Pulse Ox 97 08/05/21 00:45 BMI result Body Mass Index 41.8 VITAL SIGNS: Reviewed. GENERAL: Well developed, well nourished, in no acute distress. HEAD: Normocephalic/atraumatic EYES: PERRLA, EOMI OROPHARYNX: no oral lesions noted, posterior pharynx clear NECK: Supple, no adenopathy LUNGS: Normal breath sounds. No adventitious sounds or accessory muscle use. SpO2<30> CARDIOVASCULAR: Regular rate and rhythm without noted murmurs ABDOMEN: Soft, non-tender, non-distended with bowel sounds. SKIN: Inspection of the skin reveals no rashes NEUROLOGIC: Alert and oriented x 4. Strength and sensation to light touch were grossly intact x 4. Course Course Course Narrative: 31-year-old male with history and clinical presentation most consistent with COVID-19 infection despite review serology test that demonstrates negativity. With loss of taste and smell patient will be ins tructed to quarantine and retest in the next 3-4 days. Patient has had no further vomiting or diarrheal episodes, there is no stigmata hematemesis and review of all investigations otherwise negative for acute findings. Patient received antiemetics, GI cocktail, and then on reassessment will be evaluated for toleration of oral intake. On reassessment patient is noted to have vomit a very small amount of clear, pinkish fluid. An IV was started and he will receive 1 L of fluids as well as Protonix. This case was discussed with Gastroenterology who agrees with recommendation that as long as he can tolerate oral intake that he should be placed on 20 mg omeprazole daily as well as receiving p.r.n. Zofran and then follow-up with his primary care provider. On re-evaluation patient is tolerating intake. MDM - Nausea/Vomiting/Diarrhea Lab Data Result diagrams: 08/04/21 16:59 08/04/21 16:59 Labs: Lab Results 08/04/21 08/04/21 08/04/21 Range/Units 16:59 16:59 16:59 WBC 10.5 (4.8-10.8) X10*3/uL RBC 5.84 H (4.60-5.80) X10*6/uL Hgb 17.4 (14.0-18.0) g/dl Hct 50.6 (42.0-52.0) % MCV 86.6 (80.0-98.0) fL MCH 29.8 (27.0-33.0) pg MCHC 34.4 (31.0-36.0) g/dl RDW 12.0 (11.0-16.0) % Plt Count 311 (160-400) X10*3/uL MPV 9.0 L (9.4-12.4) fL Immature Gran % (Auto) 0.8 H (0.0-0.4) % Neut % (Auto) 61.0 (45-73) % Lymph % (Auto) 30.4 (20-40) % [place] % (Auto) 6.3 (2-11) % Eos % (Auto) 1.1 (0-4) % Baso % (Auto) 0.4 (0-2) % Lymph # (Auto) 3.2 (1.2-4.9) X10*3/uL [place] # (Auto) 0.7 (0.1-1.2) X10*3/uL Eos # (Auto) 0.1 (0.0-0.4) X10*3/uL Baso # (Auto) 0.0 (0.0-0.2) X10*3/uL Abs Immat Gran (auto) 0.08 H (0.00-0.03) X10*3/uL Absolute Neuts (auto) 6.4 (2.0-8.3) x10*3/uL Absolute Nucleated RBC 0.000 (0.0-0.012) X10*3/uL Nucleated RBC % (auto) 0.0 (0.0-0.2) /100WBC Sodium 139 (135-145) mmol/L Potassium 4.7 (3.3-5.1) mmol/L Chloride 105 (96-108) mmol/L Carbon Dioxide 24 (22-29) mmol/L Anion Gap 15 (12-20) BUN 11 (9-16) mg/dL Creatinine 0.85 (0.5-1.4) mg/dL Estim Creat Clear Calc 179.0 Estimated GFR > 60 Fasting Glucose 98 (60-99) mg/dL Calcium 9.9 D (8.4-10.2) mg/dL Total Bilirubin 0.8 (0.0-1.0) mg/dL AST 20 D (5-37) U/L ALT 22 (0-40) U/L Alkaline Phosphatase 68 (39-117) U/L Troponin I High Sens 4.5 (<3.5-35.0) ng/L Total Protein 8.1 H (6.5-8.0) g/dL Albumin 4.4 (3.5-5.0) g/dL Lipase 20 (8-78) U/L COVID-19 ([facility]) (Negative) COVID-19 Clin Com 08/04/21 Range/Units 16:59 WBC (4.8-10.8) X10*3/uL RBC (4.60-5.80) X10*6/uL Hgb (14.0-18.0) g/dl Hct (42.0-52.0) % MCV (80.0-98.0) fL MCH (27.0-33.0) pg MCHC (31.0-36.0) g/dl RDW (11.0-16.0) % Plt Count (160-400) X10*3/uL MPV (9.4-12.4) fL Immature Gran % (Auto) (0.0-0.4) % Neut % (Auto) (45-73) % Lymph % (Auto) (20-40) % [place] % (Auto) (2-11) % Eos % (Auto) (0-4) % Baso % (Auto) (0-2) % Lymph # (Auto) (1.2-4.9) X10*3/uL [place] # (Auto) (0.1-1.2) X10*3/uL Eos # (Auto) (0.0-0.4) X10*3/uL Baso # (Auto) (0.0-0.2) X10*3/uL Abs Immat Gran (auto) (0.00-0.03) X10*3/uL Absolute Neuts (auto) (2.0-8.3) x10*3/uL Absolute Nucleated RBC (0.0-0.012) X10*3/uL Nucleated RBC % (auto) (0.0-0.2) /100WBC Sodium (135-145) mmol/L Potassium (3.3-5.1) mmol/L Chloride (96-108) mmol/L Carbon Dioxide (22-29) mmol/L Anion Gap (12-20) BUN (9-16) mg/dL Creatinine (0.5-1.4) mg/dL Estim Creat Clear Calc Estimated GFR Fasting Glucose (60-99) mg/dL Calcium (8.4-10.2) mg/dL Total Bilirubin (0.0-1.0) mg/dL AST (5-37) U/L ALT (0-40) U/L Alkaline Phosphatase (39-117) U/L Troponin I High Sens (<3.5-35.0) ng/L Total Protein (6.5-8.0) g/dL Albumin (3.5-5.0) g/dL Lipase (8-78) U/L COVID-19 ([facility]IR[facility]) Negative (Negative) COVID-19 Clin Com See Note Discharge Plan Discharge Clinical Impression: Loss of taste, Gastroenteritis, Lab test negative for COVID-19 virus Patient Disposition: Home, Self-Care Instructions: Gastroenteritis (ED), COVID-19 (Coronavirus Disease 2019) (ED) Additional Instructions: 1. Although your COVID-19 rapid test is noted to be negative today, you are recommended to self quarantine and repeat the testing again in 3 days. 2. Continue drink plenty of fluids intake [id number] Tylenol/ibuprofen as needed for any body aches/pains/temperatures greater than 100.4/headaches. 3. Follow-up with your primary care provider in via telemedicine appointment in the next 1-2 days for re-evaluation. Return to the ER for worsening symptoms. Prescriptions: New ondansetron 4 mg tablet,disintegrating 4 mg PO Q8H PRN (Reason: nausea and vomiting) Qty: 10 RF: 0 omeprazole 20 mg capsule,delayed release(DR/EC) 20 mg PO DAILY Qty: 30 RF: 0 No Action ketorolac 10 mg tablet 10 mg PO Q8H PRN (Reason: pain) Qty: 10 RF: 0 ondansetron 4 mg tablet,disintegrating 4 mg PO Q6H Qty: 14 RF: 0
[2021-08-04 23:18] VITALS: BP 145/90; PULSE 75; RESP 17; O2SAT 98
[2021-08-04] MEDS: Magnesium Hydrox/Alum Hydrox 30 ML ORAL.SUSP PO (23:20)
[2021-08-04] MEDS: Lidocaine HCl Viscous 2 % 15 ML SOLUTION 10 ML MUCOUS MEM (23:20)
[2021-08-04] MEDS: Ondansetron ODT 4 MG TAB.RAPDIS TRANSLINGU (23:21)
--- NOTE | 2021-08-04 23:52 | PC.NURSE ---
pt medicated with gi cocktail, provided saltines for po challenge. this rn to bedside to assess effectiveness of gi cocktail, pt shows this rn a small amount of liquid in emesis bag, reports he did not attempt to eat because of vomiting. dr vásquez aware. per dr vásquez, plan for IV and access and IV protonix
[2021-08-05] MEDS: 0.9 % Sodium Chloride 1,000 ML 999 ML IV (00:01)
[2021-08-05] MEDS: ondansetron HCL 4 MG/2 ML VIAL IVPUSH (00:06)
[2021-08-05] MEDS: Pantoprazole Sodium 40 MG/10 ML VIAL IVPUSH (00:43)
[2021-08-05 00:45] VITALS: BP 145/91; PULSE 67; RESP 17; TEMP 36.6; O2SAT 97
[2021-08-05 02:34] VITALS: BP 141/86; PULSE 66; RESP 18; TEMP 36.5; O2SAT 99
== END 2021-08-05 02:35 | disposition home or self-care (01) ==
PROVIDERS: Emergency Provider Student in an Organized Health Care Education/Training Program
DX: R43.9 Unspecified disturbances of smell and taste (principal); K52.9 Noninfective gastroenteritis and colitis, unspecified; Z20.822 Contact with and (suspected) exposure to COVID-19; R11.10 Vomiting, unspecified; I10 Essential (primary) hypertension; Z87.820 Personal history of traumatic brain injury
CPT/HCPCS: 36415; 80053; 83690; 84484; 85025; 87635; 93005; 96361; 96374; 96375; 99284; J2405

== ENCOUNTER 2021-08-15 08:34 | Emergency (ER) | payer OTHER, SELFPAY ==
--- NOTE | ~2021-08-15 | CT_ITS ---
EXAMINATION: CT ABDOMEN AND PELVIS WITH CONTRAST CLINICAL INFORMATION: Mid upper gastric pain, lower abdominal pain, right-sided abdominal pain,? Hernia COMPARISON: None TECHNIQUE: Multidetector volumetric images were obtained from the superior aspect of the liver through the pubic symphysis following administration 85 mL of Omnipaque 350 intravenous contrast. Sagittal and coronal reformatted images were obtained on the technologist's workstation. Oral contrast: No This CT examination was performed using dose optimization techniques as appropriate, variously including the following: *Automated exposure control *Adjustment of mA and/or kV according to patient size (this includes techniques or standardized protocols for targeted exams where dose is matched to indication/reason for exam; i.e. extremities or head) *Use of iterative reconstruction technique DLP: 1606 mGy-cm FINDINGS: LUNG BASES: The visualized lung bases are unremarkable. LIVER, GALLBLADDER, AND BILIARY TREE: The liver is normal in size, shape, and attenuation. No focal hepatic lesion or biliary ductal dilatation is present. The gallbladder is unremarkable with no evidence of radiopaque gallstones, gallbladder wall thickening, or obvious pericholecystic inflammatory changes. PANCREAS: Unremarkable. SPLEEN: Unremarkable. ADRENAL GLANDS: Unremarkable. KIDNEYS AND URETERS: The kidneys are normal in size, shape, and attenuation. No hydronephrosis, hydroureter, or calculi seen. No perinephric stranding. BLADDER: Unremarkable. GASTROINTESTINAL TRACT: The stomach is nondistended. No wall thickening or perigastric changes identified. The small and large bowel are unremarkable. The appendix is normal visible and presumably removed. ABDOMINAL WALL: No significant hernia is appreciated. LYMPH NODES: Normal. VASCULAR: Unremarkable. PELVIC VISCERA: The prostate and seminal vesicles are unremarkable. OSSEOUS STRUCTURES: Unremarkable. CT/CT abdomen pelvis w con IMPRESSION: Unremarkable examination. No cause for pain identified. Fleischner guidelines were followed.
[2021-08-15 08:39] VITALS: BP 172/92; PULSE 72; O2SAT 100
[2021-08-15 08:44] VITALS: BP 183/103; PULSE 60; RESP 18; TEMP 36.6; O2SAT 98; BMI 42.3
--- NOTE | 2021-08-15 08:49 | PC.NURSE ---
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 Pt states he has had nausea initermiitently but no V/D, fever. Pt abd in area is tender with lump felt around umbilicus. Heart sounds normal and lungs clear.
--- NOTE | 2021-08-15 09:17 | ED_ITS ---
HPI - Abdominal Pain General Chief Complaint: Abdominal Pain Stated Complaint: ABD/UMBILICAL PAIN Time Seen by Provider: 08/15/21 09:16 Source: patient Mode of arrival: ambulatory Limitations: no limitations History of Present Illness HPI narrative: 31-year-old male with a history of hypertension and traumatic brain injury presents for months of lump in his abdomen that suddenly became painful at 5:00 a.m. this morning. He has been nauseous and sweaty from the pain. Pain is 10/10 and is constant. No vomiting, no diarrhea, patient has had normal bowel movements. No fevers. Patient is hypertensive here, but states he does not take hypertension medication MD elicited complaint: abdominal pain Onset (ago): hour(s) (5) Pain Consistency: constant Location: other (right of umbilicus) Severity: severe Pain scale (0-10): 10 Quality: cramping Radiation: none Migration to: no migration Exacerbating factors: nothing Associated symptoms: nausea Related Data Previous Rx's Medication Instructions Recorded ketorolac 10 mg tablet 10 mg PO Q8H PRN #10 tab 02/23/21 ondansetron 4 mg disintegrating 4 mg PO Q6H #14 tab 05/17/21 tablet ondansetron 4 mg disintegrating 4 mg PO Q8H PRN #10 tab 08/04/21 tablet omeprazole 20 mg capsule,delayed 20 mg PO DAILY #30 cap 08/05/21 release ketorolac 10 mg tablet 10 mg PO TID 5 Days #15 tab 08/15/21 Allergies Allergy/AdvReac Type Severity Reaction Status Date / Time bee pollen [BEE STINGS] Allergy Unknown SWELLING Verified 08/15/21 08:48 seafood Allergy Itching Verified 08/15/21 08:48 Review of Systems Constitutional: Denies body ache(s), Denies chills, Denies fatigue, Denies fever(s), Denies headache(s), Denies malaise and Denies weakness Eyes: Denies diplopia Denies vertigo, Denies dizziness, Denies headache(s) and Denies throat swelling Cardiovascular: Denies chest pain, Denies syncope, Denies leg edema, Denies lightheadedness, Denies Loss of Consciousness, Denies palpitations and Denies dyspnea Respiratory: Denies chest congestion, Denies cough and Denies dyspnea Gastrointestinal: Reports abdominal pain, Denies hematochezia, Denies constipation, Denies diarrhea, Reports nausea and Denies vomiting Musculoskeletal: Reports no additional musculoskeletal complaints Denies confusion, Denies vertigo, Denies dizziness, Denies syncope, Denies headache(s) and Denies weakness Psychiatric: Denies anxiety, Denies confusion and Denies depression Endocrine: Denies fatigue and Denies palpitations Allergic/Immunologic: Denies throat swelling Physical Exam Vital Signs: Vital Signs: Last Vital Signs Temp 98 F 08/15/21 08:44 Pulse 58 08/15/21 10:04 Resp 16 08/15/21 10:04 BP 137/90 H 08/15/21 10:04 Pulse Ox 97 08/15/21 10:04 BMI result Body Mass Index 42.3 Const: General: No confusion Nutritional Appearance: well nourished Orientation/consciousness: No confusion Limitations: no limitations Eyes: Conjunctivae: conjunctivae normal Pupils: Equal, round and reactive pupils present EOM: EOMs intact bilaterally Neck: Neck: Yes full ROM, Yes no lymphadenopathy and Yes supple Resp: Effort & Inspection: normal respiratory effort and able to speak in complete sentences Auscultation: clear to auscultation bilaterally, no crackles, no rales, no rhonchi and no wheezes Cardio: Rate: regular rate Rhythm: regular rhythm Heart sounds: S1 normal heart sound present and S2 normal heart sound present GI: Other: Bulge to right of umbilicus that is not exquisitely tender when palpated, and does not resolve when I push on it Inspection: Yes obesity and Yes scar (RUQ) Palpation (GI): Soft to palpation, Tenderness to palpation present (GI) in the LLQ, in the RLQ, in the LUQ, in the RUQ and periumbilically, no guarding and not rigid Percussion: Yes normal to percussion Auscultation: normal bowel sounds Skin: General skin exam: no rashes or lesions noted Neuro: General: No confusion Cranial nerves: Yes Equal, round and reactive pupils present Extrem: General: Yes normal to inspection and Yes full ROM Psych: Appearance: grossly normal Affect: normal affect Attitude: cooperative Thought process: Normal thought process present Course Course Course Narrative: 31-year-old male presents 4 months of a lump in his abdomen to the right of his umbilical is, that suddenly became very painful this morning. Patient states the pain is 10/10. On exam, patient is obese, there is swelling to the right of patient's umbilicus. It is not exquisitely tender when I push on it, and it does not resolve with palpation. If it is a hernia, it is not reducing. When I palpate patient's abdomen, he is tender in all quadrants, no guarding. Will get labs, we will CT patient's abdomen, gave Zofran, morphine, so fluid Reevaluation(s) Reevaluation #1: CT/CT abdomen pelvis w con IMPRESSION: Unremarkable examination. No cause for pain identified.? No leukocytosis, labs are unremarkable. Patient still has abdominal pain Will get urine, test for COVID, give Toradol and re-evaluate Reevaluation #2: Urine and COVID are negative, patient is feeling much better with Toradol. Will prescribe short course of ketorolac for home, have patient follow-up with primary care provider MDM - Abdominal Pain Lab Data Result diagrams: 08/15/21 09:55 08/15/21 09:55 Labs: Lab Results 08/15/21 08/15/21 08/15/21 Range/Units 09:55 09:55 13:02 WBC 6.8 (4.8-10.8) X10*3/uL RBC 5.68 (4.60-5.80) X10*6/uL Hgb 17.1 (14.0-18.0) g/dl Hct 49.2 (42.0-52.0) % MCV 86.6 (80.0-98.0) fL MCH 30.1 (27.0-33.0) pg MCHC 34.8 (31.0-36.0) g/dl RDW 12.0 (11.0-16.0) % Plt Count 295 (160-400) X10*3/uL MPV 8.9 L (9.4-12.4) fL Immature Gran % (Auto) 0.7 H (0.0-0.4) % Neut % (Auto) 59.3 (45-73) % Lymph % (Auto) 27.5 (20-40) % [place] % (Auto) 9.8 (2-11) % Eos % (Auto) 2.1 (0-4) % Baso % (Auto) 0.6 (0-2) % Lymph # (Auto) 1.9 (1.2-4.9) X10*3/uL [place] # (Auto) 0.7 (0.1-1.2) X10*3/uL Eos # (Auto) 0.1 (0.0-0.4) X10*3/uL Baso # (Auto) 0.0 (0.0-0.2) X10*3/uL Abs Immat Gran (auto) 0.05 H (0.00-0.03) X10*3/uL Absolute Neuts (auto) 4.0 (2.0-8.3) x10*3/uL Absolute Nucleated RBC 0.000 (0.0-0.012) X10*3/uL Nucleated RBC % (auto) 0.0 (0.0-0.2) /100WBC Sodium 139 (135-145) mmol/L Potassium 4.1 (3.3-5.1) mmol/L Chloride 105 (96-108) mmol/L Carbon Dioxide 25 (22-29) mmol/L Anion Gap 13 (12-20) BUN 14 (9-16) mg/dL Creatinine 0.80 (0.5-1.4) mg/dL Estim Creat Clear Calc 191.2 Estimated GFR > 60 Random Glucose 94 (60-115) mg/dL Calcium 9.3 D (8.4-10.2) mg/dL Total Bilirubin 0.7 (0.0-1.0) mg/dL AST 18 (5-37) U/L ALT 23 (0-40) U/L Alkaline Phosphatase 62 (39-117) U/L Total Protein 7.5 (6.5-8.0) g/dL Albumin 4.1 (3.5-5.0) g/dL Lipase 24 (8-78) U/L Urine Color Urine Appearance Urine pH (5.0-8.0) Ur Specific [place] (1.005-1.025) Urine Protein (NEG-TRACE) MG/DL Urine Glucose (UA) (NEG) MG/DL Urine Ketones (NEG) MG/DL Urine Blood (NEG) Urine Nitrite (NEG) Ur Leukocyte Esterase (NEG) COVID-19 ([facility]) Negative (Negative) COVID-19 Clin Com See Note 01/16/22 Range/Units 13:53 WBC (4.8-10.8) X10*3/uL RBC (4.60-5.80) X10*6/uL Hgb (14.0-18.0) g/dl Hct (42.0-52.0) % MCV (80.0-98.0) fL MCH (27.0-33.0) pg MCHC (31.0-36.0) g/dl RDW (11.0-16.0) % Plt Count (160-400) X10*3/uL MPV (9.4-12.4) fL Immature Gran % (Auto) (0.0-0.4) % Neut % (Auto) (45-73) % Lymph % (Auto) (20-40) % [place] % (Auto) (2-11) % Eos % (Auto) (0-4) % Baso % (Auto) (0-2) % Lymph # (Auto) (1.2-4.9) X10*3/uL [place] # (Auto) (0.1-1.2) X10*3/uL Eos # (Auto) (0.0-0.4) X10*3/uL Baso # (Auto) (0.0-0.2) X10*3/uL Abs Immat Gran (auto) (0.00-0.03) X10*3/uL Absolute Neuts (auto) (2.0-8.3) x10*3/uL Absolute Nucleated RBC (0.0-0.012) X10*3/uL Nucleated RBC % (auto) (0.0-0.2) /100WBC Sodium (135-145) mmol/L Potassium (3.3-5.1) mmol/L Chloride (96-108) mmol/L Carbon Dioxide (22-29) mmol/L Anion Gap (12-20) BUN (9-16) mg/dL Creatinine (0.5-1.4) mg/dL Estim Creat Clear Calc Estimated GFR Random Glucose (60-115) mg/dL Calcium (8.4-10.2) mg/dL Total Bilirubin (0.0-1.0) mg/dL AST (5-37) U/L ALT (0-40) U/L Alkaline Phosphatase (39-117) U/L Total Protein (6.5-8.0) g/dL Albumin (3.5-5.0) g/dL Lipase (8-78) U/L Urine Color YELLOW Urine Appearance CLEAR Urine pH 7.5 (5.0-8.0) Ur Specific [place] <= 1.005 (1.005-1.025) Urine Protein NEG (NEG-TRACE) MG/DL Urine Glucose (UA) NEG (NEG) MG/DL Urine Ketones NEG (NEG) MG/DL Urine Blood NEG (NEG) Urine Nitrite NEG (NEG) Ur Leukocyte Esterase NEG (NEG) COVID-19 ([facility]) (Negative) COVID-19 Clin Com Discharge Plan Discharge Clinical Impression: Abdominal pain Qualifiers: Abdominal location: generalized Qualified Code(s): R10.84 - Generalized abdominal pain Patient Disposition: Home, Self-Care Instructions: Abdominal Pain (ED) Additional Instructions: Your workup today was negative, the CT of your abdomen, and all of your laboratory work in your urine were normal. You do not have COVID. I have prescribed ketorolac, I would like you to take it for the next 3 days to help with the pain. Do not take any ibuprofen containing products while You are taking it. Please call your primary care provider for follow-up appointment from today's emergency room visit. Please return to emergency room if you have worsening pain, vomiting, fevers, or any other new or concerning symptoms Prescriptions: New ketorolac 10 mg tablet 10 mg PO TID 5 Days Qty: 15 RF: 0 No Action ketorolac 10 mg tablet 10 mg PO Q8H PRN (Reason: pain) Qty: 10 RF: 0 ondansetron 4 mg tablet,disintegrating 4 mg PO Q8H PRN (Reason: nausea and vomiting) Qty: 10 RF: 0 omeprazole 20 mg capsule,delayed release(DR/EC) 20 mg PO DAILY Qty: 30 RF: 0 ondansetron 4 mg tablet,disintegrating 4 mg PO Q6H Qty: 14 RF: 0 PMFSH Past Medical History Medical History HTN (hypertension) TBI (traumatic brain injury) Social History Social History Patient Tobacco Use Status: Never used Tobacco Substance Use Type: Marijuana Advance Directives: No Advance Directives Information Provided: Yes
[2021-08-15 09:59] LABS: Basophils Percent Auto 0.6 % (0-2); Eosinophils Absolute Auto 0.1 X10*3/uL (0.0-0.4); Eosinophils Percent Auto 2.1 % (0-4); Hematocrit 49.2 % (42.0-52.0); Hemoglobin 17.1 g/dl (14.0-18.0); Imm Gran Abs Auto 0.05 X10*3/uL (0.00-0.03); Imm Gran Pct Auto 0.7 % (0.0-0.4); Lymphocytes Absolute Auto 1.9 X10*3/uL (1.2-4.9); Lymphocytes Percent Auto 27.5 % (20-40); MANUAL DIFF FLAG NO; Mean Corpuscular HGB Conc 34.8 g/dl (31.0-36.0); Mean Corpuscular Hemoglobin 30.1 pg (27.0-33.0); Mean Corpuscular Volume 86.6 fL (80.0-98.0); Mean Platelet Volume 8.9 fL (9.4-12.4); Monocytes Absolute Auto 0.7 X10*3/uL (0.1-1.2); Monocytes Percent Auto 9.8 % (2-11); Neutrophils Percent Auto 59.3 % (45-73); Platelet Count 295 X10*3/uL (160-400); Red Blood Count 5.68 X10*6/uL (4.60-5.80); White Blood Count 6.8 X10*3/uL (4.8-10.8)
[2021-08-15] MEDS: 0.9 % Sodium Chloride 1,000 ML 999 ML IV (10:03)
[2021-08-15] MEDS: Morphine Sulfate 4 MG/ML CARTRIDGE IVPUSH (10:03)
[2021-08-15] MEDS: ondansetron HCL 4 MG/2 ML VIAL IVPUSH (10:03)
[2021-08-15 10:04] VITALS: BP 137/90; PULSE 58; RESP 16; O2SAT 97
[2021-08-15 10:21] LABS: Alanine Aminotransferase 23 U/L (0-40); Albumin Level 4.1 g/dL (3.5-5.0); Alkaline Phosphatase 62 U/L (39-117); Anion Gap 13 (12-20); Aspartate Amino Transferase 18 U/L (5-37); Bilirubin Total 0.7 mg/dL (0.0-1.0); Blood Urea Nitrogen 14 mg/dL (9-16); Calcium 9.3 mg/dL (8.4-10.2); Carbon Dioxide 25 mmol/L (22-29); Chloride 105 mmol/L (96-108); Creatinine Clr Calc Pharmacy 191.2; Estimated Glomerular Filt Rate > 60; Glucose Random 94 mg/dL (60-115); Lipase 24 U/L (8-78); Potassium 4.1 mmol/L (3.3-5.1); Sodium 139 mmol/L (135-145); Total Protein 7.5 g/dL (6.5-8.0)
[2021-08-15] MEDS: iohexoL 350 MG/ML 100 ML INFUS..BTL 85 ML IV (11:33)
[2021-08-15] MEDS: Ketorolac Tromethamine 30 MG/ML VIAL IVPUSH (13:03)
[2021-08-15 13:37] LABS: COVID-19 Test Negative (Negative)
[2021-08-15 14:12] LABS: Appearance Urine CLEAR; Color Urine YELLOW; Glucose Urine UA NEG (NEG); Leukocyte Esterase Urine NEG (NEG); Nitrite Urine NEG (NEG); PH 7.5 (5.0-8.0); Specific Gravity - Urine <= 1.005 (1.005-1.025); Urine Blood NEG (NEG); Urine Ketones NEG (NEG); Urine Protein NEG (NEG-TRACE)
[2021-08-15 17:06] LABS: RBC Urine 0-2 /HPF (0); Squamous Epithelial Cell Urine TRACE /LPF; WBC Urine 0 /HPF (0-4)
== END 2021-08-15 14:54 | disposition home or self-care (01) ==
PROVIDERS: Physician Assistant; Emergency Provider Emergency Medicine
DX: R10.84 Generalized abdominal pain (principal); R11.0 Nausea; Z20.822 Contact with and (suspected) exposure to COVID-19; Z79.899 Other long term (current) drug therapy; F12.90 Cannabis use, unspecified, uncomplicated; Z91.14 Patient's other noncompliance with medication regimen
CPT/HCPCS: 36415; 74177; 80053; 81001; 83690; 85025; 87635; 96374; 96375; 99283; 99284; J1885; J2270; J2405; Q9967

== ENCOUNTER 2021-08-24 13:42 | Emergency (ER) | payer OTHER, SELFPAY ==
[2021-08-24 14:08] VITALS: BP 160/90; PULSE 65; O2SAT 98
[2021-08-24 14:09] VITALS: BP 148/83; PULSE 67; RESP 19; TEMP 37.2; O2SAT 98; BMI 42.3
[2021-08-24 14:36] LABS: COVID-19 Test Negative (Negative)
== END 2021-08-24 16:45 | disposition left against medical advice (07) ==
PROVIDERS: Emergency Provider Emergency Medicine
DX: R43.8 Other disturbances of smell and taste (principal); R11.0 Nausea; Z20.822 Contact with and (suspected) exposure to COVID-19
CPT/HCPCS: 87635; 99282; 99283

== ENCOUNTER 2021-09-10 17:43 | Emergency (ER) | payer OTHER, SELFPAY ==
--- NOTE | ~2021-09-10 | XR_ITS ---
EXAMINATION: CR CHEST CLINICAL INFORMATION: Chest pain. COMPARISON: Chest x-ray dated 07/20/2021. TECHNIQUE: 2 views of the chest were obtained on 3 images. FINDINGS: The cardiomediastinal silhouette is within normal limits in size. Lungs bilaterally are symmetrically hypoinflated with crowding of bronchovascular lung markings. No definite focal consolidation, effusion or pneumothorax seen. Bony structures are unremarkable. XR/XR chest 2V IMPRESSION: Low lung volumes with crowding of bronchovascular lung markings. No definite focal process.
[2021-09-10 17:50] VITALS: BP 177/106; PULSE 77; RESP 18; TEMP 37.2; O2SAT 99; BMI 41.8
--- NOTE | 2021-09-10 17:50 | ED_ITS ---
HPI - Psych General Chief Complaint: Psychiatric Symptoms Stated Complaint: crisis Source: patient and EMS Mode of arrival: EMS Limitations: no limitations History of Present Illness HPI Narrative: 31-year-old male with past medical history of TBI presents via EMS for suicidal ideation. MD complaint: suicidal ideation, anxiety and hallucinations Onset (ago): day(s) Duration: constant History of same: Yes Relieving factors: none Context: not taking psychiatric medications Associated psychiatric symptoms: depression, suicidal ideation, racing thoughts, auditory hallucinations and delusions Associated symptoms: denies other symptoms Treatments prior to arrival: none If self harm: admits thoughts of self harm Related Data Previous Rx's Medication Instructions Recorded omeprazole 20 mg capsule,delayed 20 mg PO DAILY #30 cap 08/05/21 release Allergies Allergy/AdvReac Type Severity Reaction Status Date / Time bee pollen [BEE STINGS] Allergy Unknown SWELLING Verified 08/15/21 08:48 seafood Allergy Itching Verified 08/15/21 08:48 Review of Systems Review of Systems: Constitutional: No Fever, No Chills ENT/Mouth: No Ear Pain, No Nasal Congestion, No sore throat Eyes: No Eye Pain, No Swelling, No Redness Cardiovascular: No Chest Pain, No SOB Respiratory: No Cough, No Sputum, No Dyspnea Gastrointestinal: No Nausea, No Vomiting, No Diarrhea, No Hematochezia, No Me paul Genitourinary: No Dysuria, No Urinary Frequency, No Hematuria Musculoskeletal: No Myalgias Skin: No Skin Lesions, No rash Neuro: No Weakness, No Numbness, No Paresthesias, No Dizziness, No Headache Psych: positive Anxiety, positive Depression, positive SI, positive auditory hallucinations Heme/Lymph: No Lymphadenopathy Endocrine: No Polyuria, No Polydipsia Yes all other systems are reviewed and are negative [facility] Past Medical History Attestation statement: The following information was validated with the patient. Source: old records reviewed Medical History HTN (hypertension) TBI (traumatic brain injury) Social History Social History Patient Tobacco Use Status: Never used Tobacco Substance Use Type: Marijuana Advance Directives: No Advance Directives Information Provided: No Physical Exam Vital Signs: Vital Signs: Last Vital Signs Temp 97.6 F 09/11/21 01:07 Pulse 67 02/12/22 01:07 Resp 20 09/11/21 01:07 BP 151/105 H 09/11/21 01:07 Pulse Ox 98 09/11/21 01:07 BMI result Body Mass Index 41.8 Appearance: Alert. Oriented X3. Moderate psychiatric distress. Eyes: Pupils equal, round and reactive to light. EOMI. Sclera nonicteric. ENT: Pharynx normal. Two small ulcerations to the right cheek. Moist mucosa Neck: Normal inspection. Neck supple. No cervical lymphadenopathy. CVS: Normal heart rate and rhythm. Pulses normal. Respiratory: No respiratory distress. Breath sounds normal. Abdomen: Soft and nontender. Obese. Skin: Skin warm and dry. Normal skin color. Normal skin turgor. Extremities: Moves all extremities against resistance. Get well-balanced well coordinated. Neuro: No motor deficit. No sensory deficit. Cranial nerves 2-12 intact. Course Course Course Narrative: 31-year-old male presents via EMS auditory hallucinations commanding him to kill himself. States that he has not taken his psychiatric medications since January 2021 and cannot recall what meds he was prescribed. Patient is alert oriented, answering questions appropriately. Speech appears pressured. Will order crisis consult, psychiatric consult for medications, and Section 12. 20:54 physician observation started at this time MDM - Psych Differential Diagnosis Differential diagnosis: Likely acute psychosis, suicidal ideation, depression, drug-induced psychotic disorder and schizoaffective disorder Medical Records Attestation: I reviewed the patient's medical records. Lab Data Attestation: I reviewed the patient's lab results. Result diagrams: 09/10/21 18:10 09/10/21 18:10 Labs: Lab Results 09/10/21 09/10/21 09/10/21 Range/Units 18:05 18:05 18:08 WBC (4.8-10.8) X10*3/uL RBC (4.60-5.80) X10*6/uL Hgb (14.0-18.0) g/dl Hct (42.0-52.0) % MCV (80.0-98.0) fL MCH (27.0-33.0) pg MCHC (31.0-36.0) g/dl RDW (11.0-16.0) % Plt Count (160-400) X10*3/uL MPV (9.4-12.4) fL Immature Gran % (Auto) (0.0-0.4) % Neut % (Auto) (45-73) % Lymph % (Auto) (20-40) % [place] % (Auto) (2-11) % Eos % (Auto) (0-4) % Baso % (Auto) (0-2) % Lymph # (Auto) (1.2-4.9) X10*3/uL [place] # (Auto) (0.1-1.2) X10*3/uL Eos # (Auto) (0.0-0.4) X10*3/uL Baso # (Auto) (0.0-0.2) X10*3/uL Abs Immat Gran (auto) (0.00-0.03) X10*3/uL Absolute Neuts (auto) (2.0-8.3) x10*3/uL Absolute Nucleated RBC (0.0-0.012) X10*3/uL Nucleated RBC % (auto) (0.0-0.2) /100WBC Sodium (135-145) mmol/L Potassium (3.3-5.1) mmol/L Chloride (96-108) mmol/L Carbon Dioxide (22-29) mmol/L Anion Gap (12-20) BUN (9-16) mg/dL Creatinine (0.5-1.4) mg/dL Estim Creat Clear Calc Estimated GFR Random Glucose (60-115) mg/dL Calcium (8.4-10.2) mg/dL Total Bilirubin (0.0-1.0) mg/dL AST (5-37) U/L ALT (0-40) U/L Alkaline Phosphatase (39-117) U/L Total Protein (6.5-8.0) g/dL Albumin (3.5-5.0) g/dL Urine Opiates Screen Not Detected (Not Detect) Urine Fentanyl Screen Not Detected (Not Detect) Ur Barbiturates Screen Not Detected (Not Detect) Ur Phencyclidine Scrn Not Detected (Not Detect) Ur Amphetamines Screen Not Detected (Not Detect) U Benzodiazepines Scrn Not Detected (Not Detect) Urine Cocaine Screen Not Detected (Not Detect) U Marijuana (THC) Screen POSITIVE H (Not Detect) Ethyl Alcohol mg/dL COVID-19 (GIRISH) Negative (Negative) COVID-19 Clin Com See Note S. pyogenes GrpA DANIAL Negative (Negative) 09/10/21 09/10/21 09/10/21 Range/Units 18:10 18:10 18:10 WBC 8.0 (4.8-10.8) X10*3/uL RBC 5.34 (4.60-5.80) X10*6/uL Hgb 16.3 (14.0-18.0) g/dl Hct 46.3 (42.0-52.0) % MCV 86.7 (80.0-98.0) fL MCH 30.5 (27.0-33.0) pg MCHC 35.2 (31.0-36.0) g/dl RDW 12.2 (11.0-16.0) % Plt Count 289 (160-400) X10*3/uL MPV 9.3 L (9.4-12.4) fL Immature Gran % (Auto) 0.9 H (0.0-0.4) % Neut % (Auto) 48.6 (45-73) % Lymph % (Auto) 38.3 (20-40) % [place] % (Auto) 8.5 (2-11) % Eos % (Auto) 3.2 (0-4) % Baso % (Auto) 0.5 (0-2) % Lymph # (Auto) 3.1 (1.2-4.9) X10*3/uL [place] # (Auto) 0.7 (0.1-1.2) X10*3/uL Eos # (Auto) 0.3 (0.0-0.4) X10*3/uL Baso # (Auto) 0.0 (0.0-0.2) X10*3/uL Abs Immat Gran (auto) 0.07 H (0.00-0.03) X10*3/uL Absolute Neuts (auto) 3.9 (2.0-8.3) x10*3/uL Absolute Nucleated RBC 0.000 (0.0-0.012) X10*3/uL Nucleated RBC % (auto) 0.0 (0.0-0.2) /100WBC Sodium 138 (135-145) mmol/L Potassium 4.3 (3.3-5.1) mmol/L Chloride 105 (96-108) mmol/L Carbon Dioxide 25 (22-29) mmol/L Anion Gap 12 (12-20) BUN 13 (9-16) mg/dL Creatinine 0.82 (0.5-1.4) mg/dL Estim Creat Clear Calc 185.5 Estimated GFR > 60 Random Glucose 94 (60-115) mg/dL Calcium 9.3 (8.4-10.2) mg/dL Total Bilirubin 0.3 (0.0-1.0) mg/dL AST 20 (5-37) U/L ALT 24 (0-40) U/L Alkaline Phosphatase 69 (39-117) U/L Total Protein 7.8 (6.5-8.0) g/dL Albumin 4.3 (3.5-5.0) g/dL Urine Opiates Screen (Not Detect) Urine Fentanyl Screen (Not Detect) Ur Barbiturates Screen (Not Detect) Ur Phencyclidine Scrn (Not Detect) Ur Amphetamines Screen (Not Detect) U Benzodiazepines Scrn (Not Detect) Urine Cocaine Screen (Not Detect) U Marijuana (THC) Screen (Not Detect) Ethyl Alcohol < 10 mg/dL COVID-19 (GIRISH) (Negative) COVID-19 Clin Com S. pyogenes GrpA DANIAL (Negative) Discharge Plan Discharge Clinical Impression: Acute psychosis, Suicidal ideation Patient Disposition: Still a Patient Prescriptions: No Action omeprazole 20 mg capsule,delayed release(DR/EC) 20 mg PO DAILY Qty: 30 0RF
[2021-09-10 18:16] LABS: MANUAL DIFF FLAG NO
[2021-09-10 18:25] LABS: Basophils Percent Auto 0.5 % (0-2); Eosinophils Absolute Auto 0.3 X10*3/uL (0.0-0.4); Eosinophils Percent Auto 3.2 % (0-4); Hematocrit 46.3 % (42.0-52.0); Hemoglobin 16.3 g/dl (14.0-18.0); Imm Gran Abs Auto 0.07 X10*3/uL (0.00-0.03); Imm Gran Pct Auto 0.9 % (0.0-0.4); Lymphocytes Absolute Auto 3.1 X10*3/uL (1.2-4.9); Lymphocytes Percent Auto 38.3 % (20-40); Mean Corpuscular HGB Conc 35.2 g/dl (31.0-36.0); Mean Corpuscular Hemoglobin 30.5 pg (27.0-33.0); Mean Corpuscular Volume 86.7 fL (80.0-98.0); Mean Platelet Volume 9.3 fL (9.4-12.4); Monocytes Absolute Auto 0.7 X10*3/uL (0.1-1.2); Monocytes Percent Auto 8.5 % (2-11); Neutrophils Absolute Auto 3.9 x10*3/uL (2.0-8.3); Neutrophils Percent Auto 48.6 % (45-73); Platelet Count 289 X10*3/uL (160-400); Red Blood Count 5.34 X10*6/uL (4.60-5.80); Red Cell Distribution Width 12.2 % (11.0-16.0)
[2021-09-10 18:28] LABS: IDNOW Serial# 9DD0AD1C; Strep A Nucleic Acid Negative (Negative)
[2021-09-10 18:29] LABS: Ethanol < 10 mg/dL
--- NOTE | 2021-09-10 18:29 | PC.NURSE ---
Patient referred to sonia
[2021-09-10 18:33] LABS: Amphetamine Screen Urine Not Detected (Not Detect); Barbiturates, Urine Not Detected (Not Detect); Benzodiazepines Screen Urine Not Detected (Not Detect); Cannabinoid Screen Urine POSITIVE (Not Detect); Cocaine Screen Urine Not Detected (Not Detect); Fentanyl, urine Not Detected (Not Detect); Opiate Screen Urine Not Detected (Not Detect); Phencyclidine Screen Urine Not Detected (Not Detect)
[2021-09-10 18:34] LABS: Alanine Aminotransferase 24 U/L (0-40); Albumin Level 4.3 g/dL (3.5-5.0); Alkaline Phosphatase 69 U/L (39-117); Anion Gap 12 (12-20); Aspartate Amino Transferase 20 U/L (5-37); Bilirubin Total 0.3 mg/dL (0.0-1.0); Blood Urea Nitrogen 13 mg/dL (9-16); Calcium 9.3 mg/dL (8.4-10.2); Carbon Dioxide 25 mmol/L (22-29); Chloride 105 mmol/L (96-108); Creatinine Clr Calc Pharmacy 185.5; Estimated Glomerular Filt Rate > 60; Glucose Random 94 mg/dL (60-115); Potassium 4.3 mmol/L (3.3-5.1); Sodium 138 mmol/L (135-145); Total Protein 7.8 g/dL (6.5-8.0)
[2021-09-10 18:35] LABS: COVID-19 Test Negative (Negative)
[2021-09-10] MEDS: Acetaminophen 325 MG TABLET 650 MG PO (18:50)
--- NOTE | 2021-09-11 | ECG_ITS ---
Test Reason : CHEST PAIN Blood Pressure : / mmHG Vent. Rate : 063 BPM Atrial Rate : 063 BPM P-R Int : 136 ms QRS Dur : 098 ms QT Int : 412 ms P-R-T Axes : 039 025 015 degrees QTc Int : 421 ms Normal sinus rhythm with sinus arrhythmia Normal ECG When compared with ECG of 04-AUG-2021 16:49, No significant change was found Referred By: Shayna Panda Electronically Signed By:Quintin Paris
[2021-09-11 01:07] VITALS: BP 151/105; PULSE 67; RESP 20; TEMP 36.4; O2SAT 98
--- NOTE | 2021-09-11 06:42 | PC.NURSE ---
Patient slept well, compliant of right lower gum pain, provider notified/assessed no new order, patient's behavior appropriate and non concerning at this time, disposition per [facility] is section 12 inpatient bed search, will continue to monitor.
--- NOTE | 2021-09-11 07:08 | PC.NURSE ---
patient appears to remain asleep at present respirations are even and unlabored, patient appears in no distress
[2021-09-11 09:13] VITALS: BP 150/102; PULSE 75; RESP 16; TEMP 36.7; O2SAT 98
[2021-09-11 10:19] LABS: MANUAL DIFF FLAG NO
[2021-09-11 10:23] LABS: Basophils Absolute Auto 0.1 X10*3/uL (0.0-0.2); Basophils Percent Auto 0.8 % (0-2); Eosinophils Absolute Auto 0.2 X10*3/uL (0.0-0.4); Eosinophils Percent Auto 2.4 % (0-4); Hematocrit 50.2 % (42.0-52.0); Hemoglobin 17.2 g/dl (14.0-18.0); Imm Gran Abs Auto 0.03 X10*3/uL (0.00-0.03); Imm Gran Pct Auto 0.4 % (0.0-0.4); Lymphocytes Absolute Auto 2.2 X10*3/uL (1.2-4.9); Mean Corpuscular HGB Conc 34.3 g/dl (31.0-36.0); Mean Corpuscular Hemoglobin 29.6 pg (27.0-33.0); Mean Corpuscular Volume 86.3 fL (80.0-98.0); Mean Platelet Volume 9.1 fL (9.4-12.4); Monocytes Absolute Auto 0.7 X10*3/uL (0.1-1.2); Monocytes Percent Auto 9.2 % (2-11); Neutrophils Absolute Auto 4.2 x10*3/uL (2.0-8.3); Neutrophils Percent Auto 57.2 % (45-73); Platelet Count 293 X10*3/uL (160-400); Red Blood Count 5.82 X10*6/uL (4.60-5.80); Red Cell Distribution Width 12.1 % (11.0-16.0); White Blood Count 7.4 X10*3/uL (4.8-10.8)
[2021-09-11 10:47] LABS: Troponin-I High Sensitivity 4.2 ng/L (<3.5-35.0)
[2021-09-11 10:59] LABS: Alanine Aminotransferase 28 U/L (0-40); Albumin Level 4.6 g/dL (3.5-5.0); Alkaline Phosphatase 72 U/L (39-117); Anion Gap 11 (12-20); Aspartate Amino Transferase 21 U/L (5-37); Bilirubin Total 1.3 mg/dL (0.0-1.0); Blood Urea Nitrogen 11 mg/dL (9-16); Calcium 10.2 mg/dL (8.4-10.2); Carbon Dioxide 28 mmol/L (22-29); Chloride 100 mmol/L (96-108); Creatinine Clr Calc Pharmacy 187.8; Estimated Glomerular Filt Rate > 60; Glucose Fasting 90 mg/dL (60-99); Potassium 4.4 mmol/L (3.3-5.1); Sodium 135 mmol/L (135-145); Total Protein 8.2 g/dL (6.5-8.0)
== END 2021-09-11 18:03 | disposition home or self-care (01) ==
PROVIDERS: Nurse Practitioner Family; Physician Assistant Medical; Emergency Provider Internal Medicine
DX: F23 Brief psychotic disorder (principal); R45.851 Suicidal ideations; R07.9 Chest pain, unspecified; Z20.822 Contact with and (suspected) exposure to COVID-19; F41.9 Anxiety disorder, unspecified; R44.0 Auditory hallucinations; R44.1 Visual hallucinations; I10 Essential (primary) hypertension; F12.90 Cannabis use, unspecified, uncomplicated; Z87.820 Personal history of traumatic brain injury; Z79.899 Other long term (current) drug therapy
CPT/HCPCS: 36415; 71046; 80053; 80307; 82077; 84484; 85025; 87635; 87651; 93005; 99284

== ENCOUNTER 2021-09-23 09:17 | Emergency (ER) | payer OTHER, SELFPAY ==
--- NOTE | ~2021-09-23 | XR_ITS ---
EXAMINATION: XR CHEST CLINICAL INFORMATION: Cough COMPARISON: September 11, 2021 and July 20, 2021 TECHNIQUE: 2 views of the chest were obtained. FINDINGS: No significant abnormality is noted involving the heart, lungs, mediastinum, bony thorax or soft tissues. XR/XR chest 2V IMPRESSION: No acute disease.
[2021-09-23 09:27] VITALS: BP 142/92; BP 162/84; PULSE 90; PULSE 94; RESP 16; TEMP 36.6; O2SAT 96; BMI 42.1
--- NOTE | 2021-09-23 09:46 | ED.URI ---
HPI - URI/Sore Throat General Chief Complaint: Upper Respiratory Symptoms Stated Complaint: COUGH,COLD,CONGESTION X'S 3 DAYS Time Seen by Provider: 09/23/21 09:40 Source: patient and EMS Mode of arrival: EMS Limitations: no limitations History of Present Illness HPI Narrative: 31-year-old male who presents to the ER from home via EMS with 2 days of dry cough, nasal congestion, body aches and headache. He states he was recently around his aunt who was diagnosed COVID-19. He is vaccinated with 2 shots but has not got his booster yet. He denies any fever or chills. He does not have any shortness of breath or chest pain. He took cold and flu medication this morning but was nauseous and vomited that up. He denies any abdominal pain or diarrhea. MD elicited complaint: cough Onset (ago): day(s) (2) Consistency: intermittent Severity: moderate Description of mucous: clear Able to tolerate fluids by mouth: Yes Exacerbating factors: nothing Relieving factors: nothing Context: sick contacts Associated symptoms: myalgias, headache, rhinorrhea, nasal congestion, cough, nausea and vomiting Treatments prior to arrival: none Related Data Previous Rx's Medication Instructions Recorded omeprazole 20 mg capsule,delayed 20 mg PO DAILY #30 cap 08/05/21 release hydrochlorothiazide 25 mg tablet 25 mg PO DAILY #30 tab 09/11/21 ondansetron 4 mg disintegrating 4 mg PO Q8H PRN #7 tab 09/23/21 tablet Allergies Allergy/AdvReac Type Severity Reaction Status Date / Time bee pollen [BEE STINGS] Allergy Unknown SWELLING Verified 08/15/21 08:48 acetaminophen Allergy Swelling Verified 09/23/21 09:27 ibuprofen Allergy Swelling Verified 09/23/21 09:27 seafood Allergy Itching Verified 08/15/21 08:48 Review of Systems Review of Systems: Constitutional: No Fever, No Chills ENT/Mouth: No sore throat, + Rhinorrhea, No Swallowing Difficulty Cardiovascular: No Chest Pain, No SOB, No Orthopnea, No Edema Respiratory: + Cough, No Sputum, No Wheezing, No dyspnea Gastrointestinal: + Nausea, + Vomiting, No Diarrhea, No abdominal Pain Genitourinary: No Dysuria, No Urinary Frequency, No Hematuria Musculoskeletal: No joint pain, + Myalgias Skin: No Skin Lesions, No rash Neuro: No Weakness, No Numbness, No Dizziness, + Headache Psych: No Anxiety/Panic, No Depression Heme/Lymph: No Bruising, No Lymphadenopathy PMFSH Past Medical History Medical History HTN (hypertension) TBI (traumatic brain injury) Social History Social History Patient Tobacco Use Status: Never used Tobacco Substance Use Type: Marijuana Advance Directives: No Advance Directives Information Provided: No Physical Exam Vital Signs: Vital Signs: Last Vital Signs Temp 97.9 F 09/23/21 09:27 Pulse 90 09/23/21 09:27 Resp 16 09/23/21 09:27 BP 162/84 H 09/23/21 09:27 Pulse Ox 96 09/23/21 09:27 BMI result Body Mass Index 42.1 Appearance: Alert. Oriented X3. No acute distress. Eyes: Pupils equal, round and reactive to light. ENT: Pharynx normal. Tonsils without erythema or exudate Neck: Normal inspection. Neck supple. CVS: Normal heart rate and rhythm. Pulses normal. Respiratory: No respiratory distress. Breath sounds normal. Abdomen: Obese, Soft and nontender. normal +BS x4 Skin: Skin warm and dry. Normal skin color. Normal skin turgor. No rashes. Extremities: Normal inspection x4 Neuro: Oriented X 3. No motor deficit. No sensory deficit. Course Course Course Narrative: 31-year-old male presents to the ER with 2 days of cough, congestion and signs and symptoms of URI. He also reports vomiting his cold and flu medicine this morning. He continues to be nauseous. He denies any abdominal pain or diarrhea. His vital signs are normal on arrival in his exam is benign. Will give a dose of Zofran, check chest x-ray to rule out pneumonia, check COVID swab and flu swab. Reevaluation(s) Reevaluation #1: Chest x-ray is normal. He is negative for COVID and influenza. No episodes of vomiting here. He is feeling better. He is stable for discharge home with oral antiemetic p.r.n. as well as supportive care, outpatient follow-up. Stable for DC home. Patient agrees with plan. MDM - URI/Sore Throat Lab Data Labs: Lab Results 09/23/21 09/23/21 Range/Units 09:55 09:56 COVID-19 (GIRISH) Negative (Negative) COVID-19 Clin Com See Note Influenza Type A (DANIAL) Negative (Negative) Influenza Type B (DANIAL) Negative (Negative) Influenza A & B Note See Note Discharge Plan Discharge Clinical Impression: Viral infection Patient Disposition: Home, Self-Care Instructions: Viral Syndrome (ED) Additional Instructions: Your chest x-ray was normal. You were negative for COVID-19 and the Flu. Your symptoms are most likely due to another viral illness. Treatment is supportive care, rest, drink plenty of fluids. Take the prescribed nausea medication as needed for nausea and vomiting. Continue to take [id number] cold and flu medication as needed for your symptoms. Rest and do not go on public while you are feeling ill. If you develop new or worsening symptoms call 911 or come back to the ER for further evaluation. Prescriptions: New ondansetron 4 mg tablet,disintegrating 4 mg PO Q8H PRN (Reason: nausea and vomiting) Qty: 7 0RF No Action omeprazole 20 mg capsule,delayed release(DR/EC) 20 mg PO DAILY Qty: 30 0RF hydrochlorothiazide 25 mg tablet 25 mg PO DAILY Qty: 30 3RF
[2021-09-23] MEDS: Ondansetron ODT 4 MG TAB.RAPDIS TRANSLINGU (10:01)
[2021-09-23 10:40] LABS: COVID-19 Test Negative (Negative)
[2021-09-23 10:49] LABS: Influenza A Negative (Negative)
[2021-09-23 10:50] LABS: Influenza B2 Negative (Negative)
== END 2021-09-23 11:22 | disposition home or self-care (01) ==
PROVIDERS: Physician Assistant; Emergency Provider Emergency Medicine
DX: B34.9 Viral infection, unspecified (principal); Z20.822 Contact with and (suspected) exposure to COVID-19; R51.9 Headache, unspecified; M79.10 Myalgia, unspecified site; I10 Essential (primary) hypertension; Z87.820 Personal history of traumatic brain injury; F12.90 Cannabis use, unspecified, uncomplicated
CPT/HCPCS: 71046; 87502; 87635; 99283

== ENCOUNTER 2021-09-25 11:21 | Emergency (ER) | payer OTHER, SELFPAY ==
--- NOTE | 2021-09-25 11:29 | ED.PSYCH ---
HPI - Psych General Chief Complaint: Psychiatric Symptoms Stated Complaint: CRISIS Time Seen by Provider: 09/25/21 11:29 Source: patient Mode of arrival: ambulatory Limitations: no limitations History of Present Illness HPI Narrative: Patient is a 31 year old male presenting to the emergency department today requesting help with his cocaine problem and stating that he has been hearing voices. Patient states that he has a cocaine addiction that he would like help for and he has been hearing voices over the last couple of days. Patient denies any dizziness, lightheadedness, abdominal pain, nausea, vomiting, fever, chills, blurry vision, double vision, loss of vision, chest pain, difficulty breathing, shortness of breath, back pain, night sweats, pain with urination, increased urinary frequency, increased urinary urgency, blood in his urine or stool, syncope or a near syncopal episode, recent trauma or falls, bowel incontinence, bladder incontinence, bowel retention, bladder retention, or any other complaints at this time. Patient denies any suicidal or homicidal ideation however, the voices he hears encourages him to jump out of a window. MD complaint: substance abuse Onset (ago): year(s) Related Data Previous Rx's Medication Instructions Recorded omeprazole 20 mg capsule,delayed 20 mg PO DAILY #30 cap 08/05/21 release hydrochlorothiazide 25 mg tablet 25 mg PO DAILY #30 tab 09/11/21 ondansetron 4 mg disintegrating 4 mg PO Q8H PRN #7 tab 09/23/21 tablet Allergies Allergy/AdvReac Type Severity Reaction Status Date / Time bee pollen [BEE STINGS] Allergy Unknown SWELLING Verified 08/15/21 08:48 acetaminophen Allergy Swelling Verified 09/23/21 09:27 ibuprofen Allergy Swelling Verified 09/23/21 09:27 seafood Allergy Itching Verified 08/15/21 08:48 Review of Systems Constitutional: Constitutional: Reports no additional constitutional complaints, Denies chills, Denies fever(s) and Denies night sweats Eyes: Eyes: Reports no additional eye complaints, Denies blurry vision, Denies change in vision, Denies diplopia, Denies eye discharge, Denies loss of vision and Denies eye pain ENT: Denies dizziness Cardiovascular: Cardiovascular: Reports no additional cardiovascular complaints, Denies chest pain, Denies lightheadedness, Denies Loss of Consciousness and Denies dyspnea Respiratory: Respiratory: Reports no additional respiratory complaints and Denies dyspnea Gastrointestinal: Gastrointestinal: Reports no additional gastrointestinal complaints, Denies abdominal pain, Denies melena, Denies hematochezia, Denies change in bowel habits and Denies change in stool character Genitourinary: Genitourinary: Reports no additional male genitourinary complaints, Denies hematuria, Denies oliguria, Denies difficulty urinating, Denies dysuria, Denies urinary frequency, Denies urinary hesitancy, Denies urinary incontinence and Denies urinary urgency Musculoskeletal: Musculoskeletal: Reports no additional musculoskeletal complaints, Denies numbness and Denies tingling Neurologic: Denies dizziness, Denies loss of vision, Denies numbness and Denies tingling Psychiatric: Psychiatric: Reports no additional psychiatric complaints and Reports auditory hallucinations Endocrine: Endocrine: Reports no additional endocrine complaints Hematologic/Lymphatic: Hematologic/Lymphatic: Reports no additional hematologic/lymphatic complaints Allergic/Immunologic: Allergic/Immunologic: Reports no additional allergic/immunologic complaints [facility] Past Medical History Attestation statement: The following information was validated with the patient. Source: old records reviewed Medical History HTN (hypertension) TBI (traumatic brain injury) Social History Social History Patient Tobacco Use Status: Never used Tobacco Substance Use Type: Marijuana Advance Directives: No Advance Directives Information Provided: No Physical Exam Vital Signs: Vital Signs: Last Vital Signs Temp 98 F 09/25/21 11:56 Pulse 80 09/25/21 11:56 Resp 18 09/25/21 11:56 BP 156/85 H 09/25/21 11:56 Pulse Ox 95 09/25/21 11:56 BMI result Body Mass Index 44.6 Course Consultations Consultation #1: [facility] believes the patient should be brought inpatient for anxiety and suicidal ideation treatment. [facility] has gotten a section 12 on the patient. Time: 14:38 MDM - Psych MDM Narrative Medical decision making narrative: Patient is a 31 year old male presenting to the emergency department today with suicidal ideation. Patient's physical exam was unremarkable. Patient's blood work was unremarkable. I explained my physical exam findings as well as all test results to the patient. I answered all questions asked by the patient. I spoke to the [facility] rep who stated that the patient should be admitted to inpatient psych and they will obtain a section 12 for him. Physician observation has begun at 1532. Differential Diagnosis Differential diagnosis: Likely depression and drug-induced psychotic disorder Medical Records Attestation: I reviewed the patient's medical records. Lab Data Attestation: I reviewed the patient's lab results. Result diagrams: 09/25/21 12:17 09/25/21 12:17 Labs: Lab Results 09/25/21 09/25/21 09/25/21 Range/Units 11:57 12:17 12:17 WBC 7.4 (4.8-10.8) X10*3/uL RBC 5.35 (4.60-5.80) X10*6/uL Hgb 15.9 (14.0-18.0) g/dl Hct 45.4 (42.0-52.0) % MCV 84.9 (80.0-98.0) fL MCH 29.7 (27.0-33.0) pg MCHC 35.0 (31.0-36.0) g/dl RDW 11.9 (11.0-16.0) % Plt Count 278 (160-400) X10*3/uL MPV 9.3 L (9.4-12.4) fL Immature Gran % (Auto) 1.4 H (0.0-0.4) % Neut % (Auto) 54.5 (45-73) % Lymph % (Auto) 31.0 (20-40) % [place] % (Auto) 9.9 (2-11) % Eos % (Auto) 2.9 (0-4) % Baso % (Auto) 0.3 (0-2) % Lymph # (Auto) 2.3 (1.2-4.9) X10*3/uL [place] # (Auto) 0.7 (0.1-1.2) X10*3/uL Eos # (Auto) 0.2 (0.0-0.4) X10*3/uL Baso # (Auto) 0.0 (0.0-0.2) X10*3/uL Abs Immat Gran (auto) 0.10 H (0.00-0.03) X10*3/uL Absolute Neuts (auto) 4.0 (2.0-8.3) x10*3/uL Absolute Nucleated RBC 0.000 (0.0-0.012) X10*3/uL Nucleated RBC % (auto) 0.0 (0.0-0.2) /100WBC Sodium 138 (135-145) mmol/L Potassium 3.8 (3.3-5.1) mmol/L Chloride 100 (96-108) mmol/L Carbon Dioxide 30 H (22-29) mmol/L Anion Gap 12 (12-20) BUN 14 (9-16) mg/dL Creatinine 0.77 (0.5-1.4) mg/dL Estim Creat Clear Calc 204.7 Estimated GFR > 60 Random Glucose 110 (60-115) mg/dL Calcium 9.8 (8.4-10.2) mg/dL Total Bilirubin 0.6 (0.0-1.0) mg/dL AST 17 (5-37) U/L ALT 20 (0-40) U/L Alkaline Phosphatase 68 (39-117) U/L Total Protein 7.3 (6.5-8.0) g/dL Albumin 4.1 (3.5-5.0) g/dL Urine Opiates Screen (Not Detect) Urine Fentanyl Screen (Not Detect) Ur Barbiturates Screen (Not Detect) Ur Phencyclidine Scrn (Not Detect) Ur Amphetamines Screen (Not Detect) U Benzodiazepines Scrn (Not Detect) Urine Cocaine Screen (Not Detect) U Marijuana (THC) Screen (Not Detect) Ethyl Alcohol mg/dL COVID-19 (GIRISH) Negative (Negative) COVID-19 Clin Com See Note 09/25/21 09/25/21 Range/Units 12:17 12:20 WBC (4.8-10.8) X10*3/uL RBC (4.60-5.80) X10*6/uL Hgb (14.0-18.0) g/dl Hct (42.0-52.0) % MCV (80.0-98.0) fL MCH (27.0-33.0) pg MCHC (31.0-36.0) g/dl RDW (11.0-16.0) % Plt Count (160-400) X10*3/uL MPV (9.4-12.4) fL Immature Gran % (Auto) (0.0-0.4) % Neut % (Auto) (45-73) % Lymph % (Auto) (20-40) % [place] % (Auto) (2-11) % Eos % (Auto) (0-4) % Baso % (Auto) (0-2) % Lymph # (Auto) (1.2-4.9) X10*3/uL [place] # (Auto) (0.1-1.2) X10*3/uL Eos # (Auto) (0.0-0.4) X10*3/uL Baso # (Auto) (0.0-0.2) X10*3/uL Abs Immat Gran (auto) (0.00-0.03) X10*3/uL Absolute Neuts (auto) (2.0-8.3) x10*3/uL Absolute Nucleated RBC (0.0-0.012) X10*3/uL Nucleated RBC % (auto) (0.0-0.2) /100WBC Sodium (135-145) mmol/L Potassium (3.3-5.1) mmol/L Chloride (96-108) mmol/L Carbon Dioxide (22-29) mmol/L Anion Gap (12-20) BUN (9-16) mg/dL Creatinine (0.5-1.4) mg/dL Estim Creat Clear Calc Estimated GFR Random Glucose (60-115) mg/dL Calcium (8.4-10.2) mg/dL Total Bilirubin (0.0-1.0) mg/dL AST (5-37) U/L ALT (0-40) U/L Alkaline Phosphatase (39-117) U/L Total Protein (6.5-8.0) g/dL Albumin (3.5-5.0) g/dL Urine Opiates Screen Not Detected (Not Detect) Urine Fentanyl Screen Not Detected (Not Detect) Ur Barbiturates Screen Not Detected (Not Detect) Ur Phencyclidine Scrn Not Detected (Not Detect) Ur Amphetamines Screen Not Detected (Not Detect) U Benzodiazepines Scrn Not Detected (Not Detect) Urine Cocaine Screen POSITIVE H (Not Detect) U Marijuana (THC) Screen POSITIVE H (Not Detect) Ethyl Alcohol < 10 mg/dL COVID-19 (GIRISH) (Negative) COVID-19 Clin Com Discharge Plan Discharge Clinical Impression: Feeling suicidal, Depression Patient Disposition: Still a Patient Prescriptions: No Action omeprazole 20 mg capsule,delayed release(DR/EC) 20 mg PO DAILY Qty: 30 0RF ondansetron 4 mg tablet,disintegrating 4 mg PO Q8H PRN (Reason: nausea and vomiting) Qty: 7 0RF hydrochlorothiazide 25 mg tablet 25 mg PO DAILY Qty: 30 3RF Print Language: Armenian
[2021-09-25 11:56] VITALS: BP 141/100; BP 156/85; PULSE 80; PULSE 89; RESP 18; TEMP 36.6; O2SAT 95; O2SAT 98; BMI 44.6
[2021-09-25 12:26] LABS: MANUAL DIFF FLAG NO
[2021-09-25 12:30] LABS: Basophils Percent Auto 0.3 % (0-2); Eosinophils Absolute Auto 0.2 X10*3/uL (0.0-0.4); Eosinophils Percent Auto 2.9 % (0-4); Hematocrit 45.4 % (42.0-52.0); Hemoglobin 15.9 g/dl (14.0-18.0); Imm Gran Pct Auto 1.4 % (0.0-0.4); Lymphocytes Absolute Auto 2.3 X10*3/uL (1.2-4.9); Mean Corpuscular Hemoglobin 29.7 pg (27.0-33.0); Mean Corpuscular Volume 84.9 fL (80.0-98.0); Mean Platelet Volume 9.3 fL (9.4-12.4); Monocytes Absolute Auto 0.7 X10*3/uL (0.1-1.2); Monocytes Percent Auto 9.9 % (2-11); Neutrophils Percent Auto 54.5 % (45-73); Platelet Count 278 X10*3/uL (160-400); Red Blood Count 5.35 X10*6/uL (4.60-5.80); Red Cell Distribution Width 11.9 % (11.0-16.0); White Blood Count 7.4 X10*3/uL (4.8-10.8)
[2021-09-25 12:46] LABS: Ethanol < 10 mg/dL
[2021-09-25 12:47] LABS: COVID-19 Test Negative (Negative); IDNOW Serial# 16C4AD1C
[2021-09-25 12:49] LABS: Alanine Aminotransferase 20 U/L (0-40); Albumin Level 4.1 g/dL (3.5-5.0); Alkaline Phosphatase 68 U/L (39-117); Anion Gap 12 (12-20); Aspartate Amino Transferase 17 U/L (5-37); Bilirubin Total 0.6 mg/dL (0.0-1.0); Blood Urea Nitrogen 14 mg/dL (9-16); Calcium 9.8 mg/dL (8.4-10.2); Carbon Dioxide 30 mmol/L (22-29); Chloride 100 mmol/L (96-108); Creatinine Clr Calc Pharmacy 204.7; Estimated Glomerular Filt Rate > 60; Glucose Random 110 mg/dL (60-115); Potassium 3.8 mmol/L (3.3-5.1); Sodium 138 mmol/L (135-145); Total Protein 7.3 g/dL (6.5-8.0)
[2021-09-25 12:50] LABS: Amphetamine Screen Urine Not Detected (Not Detect); Barbiturates, Urine Not Detected (Not Detect); Benzodiazepines Screen Urine Not Detected (Not Detect); Cannabinoid Screen Urine POSITIVE (Not Detect); Cocaine Screen Urine POSITIVE (Not Detect); Fentanyl, urine Not Detected (Not Detect); Opiate Screen Urine Not Detected (Not Detect); Phencyclidine Screen Urine Not Detected (Not Detect)
[2021-09-25] MEDS: LORazepam 1 MG TABLET 2 MG PO (15:06)
[2021-09-25 16:06] VITALS: BP 164/111; PULSE 82; RESP 18; TEMP 36.6; O2SAT 98
[2021-09-25] MEDS: hydroCHLOROthiazide 25 MG TABLET PO (16:46)
--- NOTE | 2021-09-25 18:32 | PC.NURSE ---
patient pleasantly engaged in working on puzzles with this jingle writer for about 30-40 minutes
[2021-09-26 04:45] VITALS: BP 152/98; PULSE 81; RESP 18; TEMP 36.6; O2SAT 98
--- NOTE | 2021-09-26 06:33 | PC.NURSE ---
Patient slept through the night, no distress observed/reported, behavior appropriate and cooperative, medication compliant, disposition per [facility] section 12 inpatient bed search, VSS, will continue to monitor.
[2021-09-26] MEDS: Omeprazole 20 MG CAPSULE.DR PO (06:37)
--- NOTE | 2021-09-26 07:22 | PC.NURSE ---
patient appears to remain asleep respirations are even and unlabored patient appears in no distress
[2021-09-26] MEDS: hydroCHLOROthiazide 25 MG TABLET PO (08:53)
--- NOTE | 2021-09-26 12:08 | PC.NURSE ---
clients father called in to pod after two prior phone calls, clients father stated to me after t/w obtained permission from client to talk to father that client had in family (uncle?) and seemingly father is asking for client to discharge, transferred call to care team.
[2021-09-26 17:04] VITALS: BP 140/87; PULSE 100; RESP 20; TEMP 36.8; O2SAT 97
== END 2021-09-26 18:17 | disposition home or self-care (01) ==
PROVIDERS: Physician Assistant Medical; Emergency Provider Emergency Medicine Emergency Medical Services
DX: F32.A Depression, unspecified (principal); R45.851 Suicidal ideations; R44.0 Auditory hallucinations; F14.20 Cocaine dependence, uncomplicated; F41.9 Anxiety disorder, unspecified; Z20.822 Contact with and (suspected) exposure to COVID-19; I10 Essential (primary) hypertension; F12.90 Cannabis use, unspecified, uncomplicated; Z87.820 Personal history of traumatic brain injury; Z79.899 Other long term (current) drug therapy
CPT/HCPCS: 36415; 80053; 80307; 82077; 85025; 87635; 99284; 99285

== ENCOUNTER 2021-10-10 10:53 | Emergency (ER) | payer OTHER, SELFPAY ==
[2021-10-10 11:17] VITALS: BP 148/101; PULSE 76; RESP 16; TEMP 37; O2SAT 97; BMI 47.4
--- NOTE | 2021-10-10 11:30 | ED.GENADULT ---
HPI - General Adult General Chief complaint: Abdominal Pain Stated complaint: cyst/stomach pains Time Seen by Provider: 10/10/21 11:29 Source: patient Mode of arrival: ambulatory Limitations: no limitations History of Present Illness HPI narrative: Patient is a 31 year old male presenting to the emergency department today with abdominal pain, a cyst on his right thigh, and requesting a blood pressure medication refill. Patient states that he has had the cyst on his right inner thigh for a few days and has popped it himself at home. Patient states that this morning, his abdominal pain started and is diffuse through his abdomen. Patient states that the pain is a 4/10 on the pain scale. Patient describes the pain as an ache and states that it is throughout his entire abdomen. Patient denies any dizziness, lightheadedness, nausea, vomiting, fever, chills, blurry vision, double vision, loss of vision, chest pain, difficulty breathing, shortness of breath, back pain, night sweats, pain with urination, increased urinary frequency, increased urinary urgency, blood in his urine or stool, syncope or a near syncopal episode, recent trauma or falls, bowel incontinence, bladder incontinence, bowel retention, bladder retention, or any other complaints at this time. Patient states that he has a history of high blood pressure and needs a refill on his medication. He states that the medication starts with an H. Patient states he is following up with his PCP. Patient states that he is allergic to bee stings and seafood. Patient states that he smokes marijuana occasionally, denies tobacco use, and denies alcohol use. MD complaint: Abdominal pain, medication refill, right inner thigh cyst Onset (ago): day(s) Radiation: non-radiation Severity: mild Severity scale (1-10): 4 Quality: aching Pain Consistency: intermittent Relieving factors: none Exacerbating factors: none Associated symptoms: denies other symptoms Treatments prior to arrival: none Related Data Previous Rx's Medication Instructions Recorded omeprazole 20 mg capsule,delayed 20 mg PO DAILY #30 cap 08/05/21 release hydrochlorothiazide 25 mg tablet 25 mg PO DAILY #30 tab 09/11/21 ondansetron 4 mg disintegrating 4 mg PO Q8H PRN #7 tab 09/23/21 tablet cephalexin 500 mg capsule 500 mg PO Q6H 7 Days #28 cap 10/10/21 hydrochlorothiazide 25 mg tablet 25 mg PO DAILY 30 Days #30 tab 10/10/21 Allergies Allergy/AdvReac Type Severity Reaction Status Date / Time bee pollen [BEE STINGS] Allergy Unknown SWELLING Verified 08/15/21 08:48 acetaminophen Allergy Swelling Verified 09/23/21 09:27 ibuprofen Allergy Swelling Verified 09/23/21 09:27 seafood Allergy Itching Verified 08/15/21 08:48 Review of Systems Constitutional: Constitutional: Reports no additional constitutional complaints, Denies chills, Denies fever(s) and Denies night sweats Eyes: Eyes: Reports no additional eye complaints, Denies blurry vision, Denies change in vision, Denies diplopia, Denies eye discharge, Denies loss of vision and Denies eye pain ENT: Denies dizziness Cardiovascular: Cardiovascular: Reports no additional cardiovascular complaints, Denies chest pain, Denies lightheadedness, Denies Loss of Consciousness and Denies dyspnea Respiratory: Respiratory: Reports no additional respiratory complaints and Denies dyspnea Gastrointestinal: Gastrointestinal: Reports no additional gastrointestinal complaints, Reports abdominal pain, Denies melena, Denies hematochezia, Denies change in bowel habits and Denies change in stool character Genitourinary: Genitourinary: Reports no additional male genitourinary complaints, Denies hematuria, Denies oliguria, Denies difficulty urinating, Denies dysuria, Denies urinary frequency, Denies urinary hesitancy, Denies urinary incontinence and Denies urinary urgency Musculoskeletal: Musculoskeletal: Reports no additional musculoskeletal complaints, Denies numbness and Denies tingling Integumentary/Breasts: Comments: cyst to the right inner thigh Neurologic: Denies dizziness, Denies loss of vision, Denies numbness and Denies tingling Psychiatric: Psychiatric: Reports no additional psychiatric complaints Endocrine: Endocrine: Reports no additional endocrine complaints Hematologic/Lymphatic: Hematologic/Lymphatic: Reports no additional hematologic/lymphatic complaints Allergic/Immunologic: Allergic/Immunologic: Reports no additional allergic/immunologic complaints [facility] Past Medical History Attestation statement: The following information was validated with the patient. Medical History HTN (hypertension) TBI (traumatic brain injury) Social History Social History Patient Tobacco Use Status: Never used Tobacco Substance Use Type: Marijuana Advance Directives: No Advance Directives Information Provided: No Physical Exam ED Vital Signs: Vital Signs - 24 hr 10/10/21 11:17 Temperature 98.6 F Pulse Rate 76 Respiratory Rate 16 Blood Pressure 148/101 H Pulse Oximetry 97 BMI result Body Mass Index 47.4 Const General: cooperative, no acute distress, alert and awake Nutritional Appearance: well nourished Orientation/consciousness: patient oriented x3 Limitations: no limitations HENMT Head: Yes normal to inspection and Yes atraumatic Ears: hearing grossly normal bilaterally and external ears normal General nose exam: Normal external nose present, no nasal discharge noted and no epistaxis Face and sinus: Yes normal facial exam, No abrasion and No laceration Mouth: Normal oral and palatal mucosa present, no drooling and no muffled voice Eyes General: appearance normal, both eyes and all related structures Periorbital: periorbital findings normal Eyelids: Yes eyelids normal Conjunctivae: conjunctivae normal Pupils: Equal, round and reactive pupils present EOM: EOMs intact bilaterally Neck Neck: Yes normal visual inspection, Yes full ROM and Yes no lymphadenopathy Chest Chest palpation & inspection: normal inspection of the chest Resp Effort & Inspection: normal respiratory effort and able to speak in complete sentences Auscultation: clear to auscultation bilaterally Cardio Rate: regular rate Rhythm: regular rhythm GI Inspection: Yes normal to inspection Palpation (GI): Soft to palpation, not firm, nontender, no guarding and not rigid Auscultation: normal bowel sounds Skin Other: small scabbed over area to the right medial thigh, no erythema, no warmth, no signs of abscess Neuro General: patient oriented x3 and moves all extremities Cranial nerves: Yes Equal, round and reactive pupils present Cognition (Neuro): normal cognition Motor exam (neuro): 5/5 motor strength present throughout Sensory Exam: Normal double simultaneous stimulation for sensation Coordination: [id number] test normal Extrem General: Yes normal to inspection, Yes full ROM and Yes capillary refill normal Psych Appearance: grossly normal Mental Status: mental status grossly normal Affect: normal affect Attitude: cooperative Thought process: Normal thought process present Thought content: Normal thought content present Insight: Good insight present (Psych) Medical Decision Making MDM Narrative Medical decision making narrative: Patient is a 31 year old male presenting to the emergency department today with a cyst to his right inner thigh, a refill request, and generalized abdominal pain. I reviewed the patient's past medical records and found that he is prescribed Hydrochlorothiazide 25mg PO QD for his hypertension, this has been sent in for refill per the patient's request. Patient's physical exam showed a very small scabbed over area to the right medial thigh with no signs of erythema or warmth, and the physical exam was otherwise unremarkable, including a non-tender abdomen on GI examination and a normal neurological exam. Patient's blood work showed a very mild hyponatremia of 134 but was otherwise unremarkable. Patient's urine showed no acute process. I explained my physical exam findings as well as all test results to the patient. I answered all questions asked by the patient. I explained the appropriate diet and symptoms to look for in regards to his very mild hyponatremia. I stressed the importance of the patient taking his medication as prescribed. I stressed the importance of the patient following up with his primary care provider. I stressed the importance of the patient returning to the emergency department immediately if his symptoms were to worsen or if he were to develop any dizziness, shortness of breath, difficulty breathing, chest pain, blurry vision, loss of vision, nausea, vomiting, abdominal pain, fever, chills, back pain, or any other complaints. Patient verbalized agreement and understanding with this treatment plan and discharge. Differential Diagnosis Differential Diagnosis: abdominal pain, urinary tract infection, skin abscess Medical Records Medical records reviewed: Yes I reviewed the patient's medical records. Lab Data Lab results reviewed: Yes I reviewed the patient's lab results. Result diagrams: 10/10/21 11:48 10/10/21 11:48 Labs: Lab Results 10/10/21 10/10/21 10/10/21 Range/Units 11:48 11:48 11:48 WBC 6.8 (4.8-10.8) X10*3/uL RBC 5.24 (4.60-5.80) X10*6/uL Hgb 15.7 (14.0-18.0) g/dl Hct 45.3 (42.0-52.0) % MCV 86.5 (80.0-98.0) fL MCH 30.0 (27.0-33.0) pg MCHC 34.7 (31.0-36.0) g/dl RDW 11.9 (11.0-16.0) % Plt Count 291 (160-400) X10*3/uL MPV 9.1 L (9.4-12.4) fL Immature Gran % (Auto) 1.2 H (0.0-0.4) % Neut % (Auto) 51.7 (45-73) % Lymph % (Auto) 35.3 (20-40) % [place] % (Auto) 9.0 (2-11) % Eos % (Auto) 2.4 (0-4) % Baso % (Auto) 0.4 (0-2) % Lymph # (Auto) 2.4 (1.2-4.9) X10*3/uL [place] # (Auto) 0.6 (0.1-1.2) X10*3/uL Eos # (Auto) 0.2 (0.0-0.4) X10*3/uL Baso # (Auto) 0.0 (0.0-0.2) X10*3/uL Abs Immat Gran (auto) 0.08 H (0.00-0.03) X10*3/uL Absolute Neuts (auto) 3.5 (2.0-8.3) x10*3/uL Absolute Nucleated RBC 0.000 (0.0-0.012) X10*3/uL Nucleated RBC % (auto) 0.0 (0.0-0.2) /100WBC Sodium 134 L (135-145) mmol/L Potassium 3.8 (3.3-5.1) mmol/L Chloride 101 (96-108) mmol/L Carbon Dioxide 26 (22-29) mmol/L Anion Gap 11 L (12-20) BUN 13 (9-16) mg/dL Creatinine 0.77 (0.5-1.4) mg/dL Estim Creat Clear Calc 212.0 Estimated GFR > 60 Fasting Glucose 91 (60-99) mg/dL Calcium 9.0 D (8.4-10.2) mg/dL Total Bilirubin 0.9 (0.0-1.0) mg/dL AST 19 (5-37) U/L ALT 21 (0-40) U/L Alkaline Phosphatase 64 (39-117) U/L Total Protein 7.3 (6.5-8.0) g/dL Albumin 3.9 (3.5-5.0) g/dL Lipase 28 (8-78) U/L Urine Color YELLOW Urine Appearance CLOUDY Urine pH 7.5 (5.0-8.0) Ur Specific [place] 1.010 (1.005-1.025) Urine Protein 1+ H (NEG-TRACE) MG/DL Urine Glucose (UA) NEG (NEG) MG/DL Urine Ketones NEG (NEG) MG/DL Urine Blood NEG (NEG) Urine Nitrite NEG (NEG) Ur Leukocyte Esterase NEG (NEG) Urine RBC 0 (0) /HPF Urine WBC 0 (0-4) /HPF Ur Squamous Epith Cells NONE /LPF Triple Phos Crystals TRACE /LPF Amorphous Sediment 4+ /LPF Urine Bacteria NONE /LPF Discharge Plan Discharge Clinical Impression: Ruptured sebaceous cyst, Abdominal pain, History of hypertension, Hyponatremia Patient Disposition: Home, Self-Care Instructions: Hyponatremia (ED), Abdominal Pain (ED), Hypertension (ED) Additional Instructions: Follow up with your primary care provider. Return to the emergency department immediately if your symptoms worsen or if you develop any dizziness, shortness of breath, difficulty breathing, chest pain, blurry vision, loss of vision, nausea, vomiting, abdominal pain, fever, chills, back pain, or any other complaints. Prescriptions: New hydrochlorothiazide 25 mg tablet 25 mg PO DAILY 30 Days Qty: 30 0RF cephalexin 500 mg capsule 500 mg PO Q6H 7 Days Qty: 28 0RF No Action omeprazole 20 mg capsule,delayed release(DR/EC) 20 mg PO DAILY Qty: 30 0RF ondansetron 4 mg tablet,disintegrating 4 mg PO Q8H PRN (Reason: nausea and vomiting) Qty: 7 0RF hydrochlorothiazide 25 mg tablet 25 mg PO DAILY Qty: 30 3RF Referrals: Lucille Rolle MD [Primary Care Provider] - 2 days Print Language: Lithuanian
[2021-10-10 11:55] LABS: MANUAL DIFF FLAG NO
[2021-10-10 11:57] LABS: Appearance Urine CLOUDY; Color Urine YELLOW; Glucose Urine UA NEG (NEG); Leukocyte Esterase Urine NEG (NEG); Nitrite Urine NEG (NEG); PH 7.5 (5.0-8.0); UACC Culture Trigger NO; Urine Blood NEG (NEG); Urine Ketones NEG (NEG); Urine Protein 1+ MG/DL (NEG-TRACE)
[2021-10-10 12:01] LABS: Basophils Percent Auto 0.4 % (0-2); Eosinophils Absolute Auto 0.2 X10*3/uL (0.0-0.4); Eosinophils Percent Auto 2.4 % (0-4); Hematocrit 45.3 % (42.0-52.0); Hemoglobin 15.7 g/dl (14.0-18.0); Imm Gran Abs Auto 0.08 X10*3/uL (0.00-0.03); Imm Gran Pct Auto 1.2 % (0.0-0.4); Lymphocytes Absolute Auto 2.4 X10*3/uL (1.2-4.9); Lymphocytes Percent Auto 35.3 % (20-40); Mean Corpuscular HGB Conc 34.7 g/dl (31.0-36.0); Mean Corpuscular Volume 86.5 fL (80.0-98.0); Mean Platelet Volume 9.1 fL (9.4-12.4); Monocytes Absolute Auto 0.6 X10*3/uL (0.1-1.2); Neutrophils Absolute Auto 3.5 x10*3/uL (2.0-8.3); Neutrophils Percent Auto 51.7 % (45-73); Platelet Count 291 X10*3/uL (160-400); Red Blood Count 5.24 X10*6/uL (4.60-5.80); Red Cell Distribution Width 11.9 % (11.0-16.0); White Blood Count 6.8 X10*3/uL (4.8-10.8)
[2021-10-10 12:09] LABS: RBC Urine 0 /HPF (0); Triple Phosphate Crystal Urine TRACE /LPF; WBC Urine 0 /HPF (0-4)
[2021-10-10 12:10] LABS: Amorphous Sediment Urine 4+ /LPF
[2021-10-10 12:14] LABS: Alanine Aminotransferase 21 U/L (0-40); Albumin Level 3.9 g/dL (3.5-5.0); Alkaline Phosphatase 64 U/L (39-117); Anion Gap 11 (12-20); Aspartate Amino Transferase 19 U/L (5-37); Bilirubin Total 0.9 mg/dL (0.0-1.0); Blood Urea Nitrogen 13 mg/dL (9-16); Carbon Dioxide 26 mmol/L (22-29); Chloride 101 mmol/L (96-108); Estimated Glomerular Filt Rate > 60; Glucose Fasting 91 mg/dL (60-99); Lipase 28 U/L (8-78); Potassium 3.8 mmol/L (3.3-5.1); Sodium 134 mmol/L (135-145); Total Protein 7.3 g/dL (6.5-8.0)
== END 2021-10-10 12:33 | disposition home or self-care (01) ==
PROVIDERS: Physician Assistant Medical; Emergency Provider Emergency Medicine; PCP Internal Medicine
DX: L72.3 Sebaceous cyst (principal); E87.1 Hypo-osmolality and hyponatremia; R10.9 Unspecified abdominal pain; Z79.899 Other long term (current) drug therapy
CPT/HCPCS: 36415; 80053; 81001; 83690; 85025; 99283

== ENCOUNTER 2022-01-13 11:09 | Emergency (ER) | payer OTHER, SELFPAY ==
--- NOTE | ~2022-01-13 | XR_ITS ---
EXAMINATION: XR ANKLE, LEFT CLINICAL INFORMATION: Lateral ankle pain. COMPARISON: None TECHNIQUE: AP, lateral, and mortise views of the left ankle. An indicator arrow points to the anterior aspect of the ankle. FINDINGS: The ankle joint and mortise are intact. There is no acute fracture or dislocation. The possible small spur seen off of the anteroinferior margin of the tibia at the tibiotalar periventricular level. The joint spaces are unremarkable. The tarsal bones are normally aligned. There is a small plantar calcaneal spur. Mild to moderate soft tissue swelling is seen. XR/XR ankle LT min 3V IMPRESSION: Mild to moderate soft tissue swelling and mild degenerative spurring as detailed above without overt acute abnormality.
[2022-01-13 11:11] VITALS: BP 172/111; PULSE 92; RESP 18; TEMP 36.6; O2SAT 96; BMI 46.0
--- NOTE | 2022-01-13 11:29 | ED_ITS ---
HPI - General Adult General Chief complaint: Extremity Injury, Lower Stated complaint: l ankle inj Time Seen by Provider: 01/13/22 11:29 Source: patient Mode of arrival: ambulatory Limitations: no limitations History of Present Illness HPI narrative: Patient is a 31 year old male presenting to the emergency department today with left ankle pain. Patient states that he twisted his left ankle on some stairs and it hurt very badly. Patient denies falling with this incident. Patient denies hitting his head with the incident. Patient denies any loss of consciousness with the incident. Patient denies any dizziness, lightheadedness, abdominal pain, nausea, vomiting, fever, chills, blurry vision, double vision, loss of vision, chest pain, difficulty breathing, shortness of breath, back pain, night sweats, pain with urination, increased urinary frequency, increased urinary urgency, blood in his urine or stool, syncope or a near syncopal episode, bowel incontinence, bladder incontinence, bowel retention, bladder retention, or any other complaints at this time. Onset (ago): hour(s) Location: left and lower extremity Radiation: non-radiation Severity: mild Severity scale (1-10): 3 Quality: dull Pain Consistency: constant Relieving factors: none Exacerbating factors: none Associated symptoms: denies other symptoms Treatments prior to arrival: none Related Data Previous Rx's Medication Instructions Recorded omeprazole 20 mg capsule,delayed 20 mg PO DAILY #30 caps 08/05/21 release hydrochlorothiazide 25 mg tablet 25 mg PO DAILY #30 tabs 09/11/21 ondansetron 4 mg disintegrating 4 mg PO Q8H PRN nausea and 09/23/21 tablet vomiting #7 tabs cephalexin 500 mg capsule 500 mg PO Q6H 7 days #28 caps 10/10/21 hydrochlorothiazide 25 mg tablet 25 mg PO DAILY 1 month #30 tabs 10/10/21 Allergies Allergy/AdvReac Type Severity Reaction Status Date / Time bee pollen [BEE STINGS] Allergy Unknown SWELLING Verified 08/15/21 08:48 acetaminophen Allergy Swelling Verified 09/23/21 09:27 ibuprofen Allergy Swelling Verified 09/23/21 09:27 seafood Allergy Itching Verified 08/15/21 08:48 Review of Systems Constitutional: Constitutional: Reports no additional constitutional complaints, Denies chills, Denies fever(s) and Denies night sweats Eyes: Eyes: Reports no additional eye complaints, Denies blurry vision, Denies change in vision, Denies diplopia, Denies eye discharge, Denies loss of vision and Denies eye pain ENT: Denies dizziness Cardiovascular: Cardiovascular: Reports no additional cardiovascular complaints, Denies chest pain, Denies lightheadedness, Denies Loss of C onsciousness and Denies dyspnea Respiratory: Respiratory: Reports no additional respiratory complaints and Denies dyspnea Gastrointestinal: Gastrointestinal: Reports no additional gastrointestinal complaints, Denies abdominal pain, Denies melena, Denies hematochezia, Denies change in bowel habits and Denies change in stool character Genitourinary: Genitourinary: Reports no additional male genitourinary complaints, Denies hematuria, Denies oliguria, Denies difficulty urinating, Denies dysuria, Denies urinary frequency, Denies urinary hesitancy, Denies urinary incontinence and Denies urinary urgency Musculoskeletal: Musculoskeletal: Reports no additional musculoskeletal complaints, Denies numbness and Denies tingling Comments: left ankle pain Neurologic: Denies dizziness, Denies loss of vision, Denies numbness and Denies tingling Psychiatric: Psychiatric: Reports no additional psychiatric complaints Endocrine: Endocrine: Reports no additional endocrine complaints Hematologic/Lymphatic: Hematologic/Lymphatic: Reports no additional hematologic/lymphatic complaints Allergic/Immunologic: Allergic/Immunologic: Reports no additional allergic/immunologic complaints PMFSH Past Medical History Attestation statement: The following information was validated with the patient. Source: old records reviewed Medical History HTN (hypertension) TBI (traumatic brain injury) Social History Social History Patient Tobacco Use Status: Never used Tobacco Substance Use Type: Marijuana Advance Directives: No Advance Directives Information Provided: Yes Physical Exam ED Vital Signs: Vital Signs - 24 hr 01/13/22 11:11 Temperature 97.8 F Pulse Rate 92 Respiratory Rate 18 Blood Pressure 172/111 H Pulse Oximetry 96 Oxygen Delivery Method Room Air BMI result Body Mass Index 46.0 Const General: cooperative, no acute distress, alert and awake Nutritional Appearance: well nourished Orientation/consciousness: patient oriented x3 Limitations: no limitations HENMT Head: Yes normal to inspection and Yes atraumatic Ears: hearing grossly normal bilaterally and external ears normal General nose exam: Normal external nose present, no nasal discharge noted and no epistaxis Face and sinus: Yes normal facial exam, No abrasion and No laceration Mouth: Normal oral and palatal mucosa present, no drooling and no muffled voice Eyes General: appearance normal, both eyes and all related structures Periorbital: periorbital findings normal Eyelids: Yes eyelids normal Conjunctivae: conjunctivae normal Pupils: Equal, round and reactive pupils present EOM: EOMs intact bilaterally Neck Neck: Yes normal visual inspection, Yes full ROM and Yes no lymphadenopathy Chest Chest palpation & inspection: normal inspection of the chest Resp Effort & Inspection: normal respiratory effort and able to speak in complete sentences Auscultation: clear to auscultation bilaterally Cardio Rate: regular rate Rhythm: regular rhythm GI Inspection: Yes normal to inspection Neuro General: patient oriented x3 and moves all extremities Cranial nerves: Yes Equal, round and reactive pupils present Cognition (Neuro): normal cognition Motor exam (neuro): 5/5 motor strength present throughout Sensory Exam: Normal double simultaneous stimulation for sensation Coordination: [id number] test normal Extrem Other: mild swelling to the left ankle General: Yes full ROM and Yes capillary refill normal Psych Appearance: grossly normal Mental Status: mental status grossly normal Affect: normal affect Attitude: cooperative Thought process: Normal thought process present Thought content: Normal thought content present Insight: Good insight present (Psych) Procedures Orthopedic Splinting/Casting Injury #1: Side: left Lower Extremity Injury Location: ankle Lower Extremity Immobilizer: boot orthosis (walking boot) Medical Decision Making [facility] Narrative Medical decision making narrative: Patient is a 31 year old male presenting to the emergency department today with left ankle pain. Patient's physical exam showed minimal swelling to the left ankle but was otherwise unremarkable. Patient's left ankle x-ray showed no acute process. I explained my physical exam findings as well as all test results to the patient. I answered all questions asked by the patient]. Patient's left ankle was placed in a walking boot, without incident. Patient's PMS was intact prior to and afer boot placement. I stressed the importance of the patient taking his medication as prescribed. I stressed the importance of the patient following up with his primary care provider. I stressed the importance of the patient returning to the emergency department immediately if his symptoms were to worsen or if he were to develop any dizziness, shortness of breath, difficulty breathing, chest pain, blurry vision, loss of vision, nausea, vomiting, abdominal pain, fever, chills, back pain, or any other complaints. Patient verbalized agreement and understanding with this treatment plan and discharge. Differential Diagnosis Differential Diagnosis: ankle sprain, ankle strain Imaging Data Left ankle x-ray: Attestation: I personally reviewed and interpreted this imaging study as follows: My impression: No acute process. Radiologist's impression: EXAMINATION: XR ANKLE, LEFT CLINICAL INFORMATION: Lateral ankle pain.? COMPARISON: None? TECHNIQUE: AP, lateral, and mortise views of the left ankle. An indicator arrow points to the anterior aspect of the ankle. FINDINGS: The ankle joint and mortise are intact. There is no acute fracture or dislocation. The possible small spur seen off of the anteroinferior margin of the tibia at the tibiotalar periventricular level. The joint spaces are unremarkable. The tarsal bones are normally aligned. There is a small plantar calcaneal spur. Mild to moderate soft tissue swelling is seen. XR/XR ankle LT min 3V IMPRESSION: Mild to moderate soft tissue swelling and mild degenerative spurring as detailed above without overt acute abnormality. Dictated By: Kaushik Field MD Signed By: Electronically signed by Kaushik Field MD 01/13/22 2020 Discharge Plan Discharge Clinical Impression: Sprain of ankle Patient Disposition: Home, Self-Care Instructions: Ankle Sprain (ED) Additional Instructions: Follow up with your primary care provider. Return to the emergency department immediately if your symptoms worsen or if you develop any dizziness, shortness of breath, difficulty breathing, chest pain, blurry vision, loss of vision, nausea, vomiting, abdominal pain, fever, chills, back pain, or any other compla ints. Prescriptions: No Action omeprazole 20 mg capsule,delayed release(DR/EC) 20 mg PO DAILY Qty: 30 0RF ondansetron 4 mg tablet,disintegrating 4 mg PO Q8H PRN (Reason: nausea and vomiting) Qty: 7 0RF hydrochlorothiazide 25 mg tablet 25 mg PO DAILY 30 Days Qty: 30 0RF cephalexin 500 mg capsule 500 mg PO Q6H 7 Days Qty: 28 0RF hydrochlorothiazide 25 mg tablet 25 mg PO DAILY Qty: 30 3RF Print Language: Liberian
== END 2022-01-13 13:36 | disposition home or self-care (01) ==
PROVIDERS: Emergency Provider Student in an Organized Health Care Education/Training Program; PCP Internal Medicine
DX: S93.402A Sprain of unspecified ligament of left ankle, initial encounter (principal); X50.1XXA Overexertion from prolonged static or awkward postures, initial encounter; Y93.89 Activity, other specified; Y92.9 Unspecified place or not applicable; Y99.9 Unspecified external cause status
CPT/HCPCS: 73610; 99283

== ENCOUNTER 2022-08-26 14:10 | Emergency (ER) | payer OTHER, SELFPAY ==
--- NOTE | ~2022-08-26 | CT_ITS ---
EXAMINATION: CT ABDOMEN AND PELVIS WITHOUT CONTRAST CLINICAL INFORMATION: Left upper quadrant pain. COMPARISON: 08/15/2021 CT scan of the abdomen and pelvis. TECHNIQUE: Multidetector volumetric imaging was performed from the superior aspect of the liver through the pubic symphysis. Sagittal and coronal reformatted images were obtained on the technologist's workstation. Lack of intravenous and oral contrast limits visceral evaluation. This CT examination was performed using dose optimization techniques as appropriate, variously including the following: *Automated exposure control *Adjustment of mA and/or kV according to patient size (this includes techniques or standardized protocols for targeted exams where dose is matched to indication/reason for exam; i.e. extremities or head) *Use of iterative reconstruction technique DLP: 1308 mGy-cm FINDINGS: LUNG BASES: The visualized lung bases are unremarkable. LIVER, GALLBLADDER, AND BILIARY TREE: Unremarkable. PANCREAS: Unremarkable. SPLEEN: Unremarkable. ADRENAL GLANDS: Unremarkable. KIDNEYS AND URETERS: The kidneys are normal in size, shape, and attenuation. No hydronephrosis, hydroureter, or calculi seen. No perinephric stranding. BLADDER: Unremarkable. GASTROINTESTINAL TRACT: The small and large bowel are unremarkable. The appendix is unremarkable. ABDOMINAL WALL: No significant hernia is appreciated. LYMPH NODES: No lymphadenopathy. VASCULAR: Unremarkable. PELVIC VISCERA: Unremarkable. OSSEOUS STRUCTURES: Unremarkable. CT/CT abdomen pelvis wo IV con IMPRESSION: No acute intra-abdominal/pelvic abnormality to explain the patient's pain.
[2022-08-26 14:22] VITALS: BP 155/85; PULSE 62; RESP 18; TEMP 36.4; O2SAT 97; BMI 32.1
--- NOTE | 2022-08-26 14:23 | ED_ITS ---
HPI - General Adult General Chief complaint: Chest Pain <ALMA Mcfadden Last Filed: 08/26/22 14:25> Stated complaint: Headache, Chest Pain, Abdominal Pain <ALMA Mcfadden Last Filed: 08/26/22 14:25> Time Seen by Provider: 08/26/22 16:48 <ALMA Mcfadden Last Filed: 08/26/22 14:25> Source: patient <ALMA Doyle Last Filed: 08/26/22 19:16> Mode of arrival: ambulatory <ALMA Doyle Last Filed: 08/26/22 19:16> Limitations: no limitations <ALMA Doyle Last Filed: 08/26/22 19:16> History of Present Illness HPI narrative: 32-year-old male presenting to the ER multiple complaints which include headaches, left jaw pain/mouth and ear pain, nausea and vomiting with left upper quadrant abdominal pain for a while worse today. Reports that a few weeks ago he believes he might to smoke ?bad week? and is convinced that this is what started all of his symptoms. He denies any fevers, dizziness, neck pain/stiffness, trouble swallowing breathing, chest pain or shortness of breath, radiation of the abdominal pain, recent falls or trauma, cough, sore throat, flank pain, back pain, dysuria, hematuria, abnormal penile discharge, black or bloody stools, recent travel or sick contacts, rash, lower extremity edema or calf tenderness or any other symptoms complaints or concerns at this time. <ALMA Doyle Last Filed: 08/26/22 19:16> MD complaint: Multiple complaints <ALMA Doyle Last Filed: 08/26/22 19:16> Onset (ago): week(s) (Weeks worse in the past few days) <ALMA Doyle Last Filed: 08/26/22 19:16> Related Data Home medications: Previous Rx's Medication Instructions Recorded omeprazole 20 mg capsule,delayed 20 mg PO DAILY #30 caps 08/05/21 release hydrochlorothiazide 25 mg tablet 25 mg PO DAILY #30 tabs 09/11/21 ondansetron 4 mg disintegrating 4 mg PO Q8H PRN nausea and 09/23/21 tablet vomiting #7 tabs cephalexin 500 mg capsule 500 mg PO Q6H 7 days #28 caps 10/10/21 hydrochlorothiazide 25 mg tablet 25 mg PO DAILY 1 month #30 tabs 10/10/21 cyclobenzaprine 10 mg tablet 10 mg PO Q8H #14 tabs 08/26/22 ondansetron HCl 4 mg tablet 4 mg PO Q8H #14 tabs 08/26/22 <ALMA Mcfadden - Last Filed: 08/26/22 14:25> Allergies/adverse reactions: Allergies Allergy/AdvReac Type Severity Reaction Status Date / Time bee pollen [BEE STINGS] Allergy Unknown SWELLING Verified 08/15/21 08:48 acetaminophen Allergy Swelling Verified 09/23/21 09:27 ibuprofen Allergy Swelling Verified 09/23/21 09:27 seafood Allergy Itching Verified 08/15/21 08:48 <ALMA Mcfadden - Last Filed: 08/26/22 14:25> Review of Systems Review of Systems: Constitutional : No Weight loss, No Fever, No Chills, No Night Sweats, No Fatigue, No Malaise ENT/Mouth : No Hearing loss, + Ear Pain, + mouth pain, +jaw pain, No Nasal Congestion, No Sinus Pain, No Hoarseness, No sore throat, No Rhinorrhea, No Swallowing Difficulty Eyes: No Eye Pain, No Swelling, No Redness, No Foreign Body, No Discharge, No Vision Changes Cardiovascular : No Chest Pain, No SOB, No Dyspnea on Exertion, No Orthopnea, No Edema, No Palpitations Respiratory : No Cough, No Sputum, No Wheezing, No Smoke Exposure, No Dyspnea Gastrointestinal : + Nausea, + Vomiting, No Diarrhea, No Constipation, + abdominal Pain, No Hematochezia, No Melena Genitourinary : no irregular bleeding, No Dysuria, No Urinary Frequency, No Hematuria, No Urinary Incontinence, No Urgency, No Flank Pain, No Urinary Flow Changes, No Hesitancy Musculoskeletal : No joint pain, + Myalgias, No Joint Swelling Skin : No Skin Lesions, No rash Neuro : No Weakness, No Numbness, No Paresthesias, No Loss of Consciousness, No Dizziness, No Headache Psych : No Anxiety/Panic, No Depression, No SI/HI/AH/VH, No Social Issues, Heme/Lymph: No Bruising, No Bleeding,No Lymphadenopathy Endocrine : No Polyuria, No Polydipsia, No Temperature Intolerance <ALMA Doyle - Last Filed: 08/26/22 19:16> Yes all other systems are reviewed and are negative <ALMA Doyle - Last Filed: 08/26/22 19:16> [facility] Past Medical History Attestation statement: The following information was validated with the patient. <ALMA Doyle - Last Filed: 08/26/22 19:16> Source: old records reviewed and nursing notes reviewed <ALMA Doyle - Last Filed: 08/26/22 19:16> Medical History: Medical History HTN (hypertension) TBI (traumatic brain injury) <ALMA Mcfadden - Last Filed: 08/26/22 14:25> Social History Social History: Social History Patient Tobacco Use Status: Never used Tobacco Substance Use Type: Marijuana Advance Directives: No Advance Directives Information Provided: No <ALMA Mcfadden - Last Filed: 08/26/22 14:25> Physical Exam ED Vital Signs: Vital Signs - 24 hr 08/26/22 14:22 Temperature 97.6 F Pulse Rate 62 Respiratory Rate 18 Blood Pressure 155/85 H Pulse Oximetry 97 Oxygen Delivery Method Room Air BMI result Body Mass Index 32.1 <ALMA Mcfadden - Last Filed: 08/26/22 14:25> Vital Signs - 24 hr 08/26/22 14:22 Temperature 97.6 F Pulse Rate 62 Respiratory Rate 18 Blood Pressure 155/85 H Pulse Oximetry 97 Oxygen Delivery Method Room Air BMI result Body Mass Index 32.1 vital signs have been reviewed as normal and appeared to be correct. Blood pressure normal. Heart rate normal. Respiration rate normal. Temperature normal. Oxygen saturation normal. <ALMA Doyle - Last Filed: 08/26/22 19:16> Appearance: Alert. Oriented X3. No acute distress. Head: Normal external exam. Normocephalic. Atraumatic. Eyes: PERRLA. EOMI. Conjunctiva and sclera normal. Eyelids normal. ENT: EAC normal. TM's Normal. Patient with tenderness palpation over palpation older left TMJ aspect. No crepitus is noted. Patient appears to grind his teeth. Pharynx normal. Uvula midline. Moist mucous membranes. No lesions/ulcerations or masses noted on the tongue. Normal voice. No trismus noted. No drooling noted. No muffled voice noted. Neck: Normal inspection. Neck supple. FROM. No adenopathy. Thyroid Normal. No tracheal deviation noted. No crepitus is noted. No meningeal signs. No neck mass noted. No signs of trauma noted. CVS: Normal heart rate and rhythm. Heart sound normal. Pulses normal throughout. No murmurs/rales/gallops. Respiratory: No respiratory distress. Painless inspiration. Breath sounds normal. No wheezes/rales/rhonchi noted. Chest nontender. No crepitus is noted. No signs of trauma noted. No accessory muscle usage noted or decreased air movement noted. No signs of trauma. Abdomen: Soft and mild tenderness to the left upper quadrant. Bowel sounds normal in all 4 quadrants. No distention noted. No organomegaly noted. No visible injury noted. Back: No CVA tenderness. Full range of motion noted. Nontender. No signs of trauma. Patient neuro intact bilaterally and distally on all 4 extremities. Patient's reflexes intact bilaterally and distally on all 4 extremities. No rashes/lesion/induration/fluctuance or signs of infection noted. Skin: Skin warm and dry. Normal skin color. Normal skin turgor. No rashes/lesions/lacerations noted. Extremities: No lower extremity edema. No calf tenderness is noted. Extremities exhibit normal range of motion and nontender. Neuro: Oriented X 3. No motor deficit. No sensory deficit. Reflexes normal. Normal steady gait. No focal neuro deficits noted. CN's II-XII intact bilaterally? Vascular: + radial pulses/+ 2 distal pedal pulses/+2 dorsalis pedis b/l. Normal cap refill. No cyanosis noted to upper extremity nails and lower extremity toes nails. <ALMA Doyle - Last Filed: 08/26/22 19:16> Course Course Course Narrative: RME performed by Shayna Panda PA-C. Patient is a 32 year old male presenting to the emergency department with multiple complaints including a headache, abdominal pain, and the inside of his mouth feeling as though it is burning. Patient states that a few weeks ago he smoked bad weed and he is convinced that is what started all of this. Lab work ordered. Patient placed back in waiting room pending results and room availability. <ALMA Mcfadden - Last Filed: 08/26/22 14:25> Reevaluation(s) Reevaluation #1: 32-year-old male presenting to the ER multiple complaints which include headaches, left jaw pain/mouth and ear pain, nausea and vomiting with left upper quadrant abdominal pain for a while worse today. Reports that a few weeks ago he believes he might to smoke ?bad week? and is convinced that this is what started all of his symptoms. Patient had labs a he was in the waiting room and sodium is 131 which is chronic for the patient his last sodium was 134 in 2021. Carbon dioxide 95. BUN 7. Total bilirubin 1.4. Otherwise all other labs are within normal limits. UA within normal limits no evidence of UTI. Patient positive for marijuana negative for all other drugs. Patient negative for COVID/RSV/flu. CT scan abdomen pelvis within normal limits no acute processes are noted. Patient most likely TMJ syndrome unknown cause of left upper quadrant abdominal pain. Not consistent with cholecystitis or pancreatitis at this time. Will DC home with symptomatic treatment instructions return if any new or worsening symptoms to follow up with primary care provider. Patient understands agrees with this plan. <ALMA Doyle - Last Filed: 08/26/22 19:16> Time: 19:14 <ALMA Doyle - Last Filed: 08/26/22 19:16> Medications Administered Discontinued Medications Generic Name Dose Route Start Last Admin Trade Name Freq PRN Reason Stop Dose Admin Cyclobenzaprine HCl 10 mg 08/26/22 17:11 08/26/22 17:16 Cyclobenzaprine Hcl 10 Mg Tablet PO 08/26/22 17:12 10 mg ONCE ONE Administration <ALMA Mcfadden - Last Filed: 08/26/22 14:25> Medications Administered Discontinued Medications Generic Name Dose Route Start Last Admin Trade Name Freq PRN Reason Stop Dose Admin Cyclobenzaprine HCl 10 mg 08/26/22 17:11 08/26/22 17:16 Cyclobenzaprine Hcl 10 Mg Tablet PO 08/26/22 17:12 10 mg ONCE ONE Administration <ALMA Doyle - Last Filed: 08/26/22 19:16> Medical Decision Making Lab Data MDM Lab Attestation statement: I reviewed the patient's lab results. <ALMA Doyle - Last Filed: 08/26/22 19:16> Result Diagrams: 08/26/22 14:29 08/26/22 14:29 <ALMA Mcfadden - Last Filed: 08/26/22 14:25> Labs: Lab Results 08/26/22 08/26/22 08/26/22 Range/Units 14:29 14:29 14:29 WBC 9.8 (4.8-10.8) X10*3/uL RBC 5.72 (4.60-5.80) X10*6/uL Hgb 16.8 (14.0-18.0) g/dl Hct 47.3 (42.0-52.0) % MCV 82.7 (80.0-98.0) fL MCH 29.4 (27.0-33.0) pg MCHC 35.5 (31.0-36.0) g/dl RDW 11.9 (11.0-16.0) % Plt Count 294 (160-400) X10*3/uL MPV 9.2 L (9.4-12.4) fL Immature Gran % (Auto) 0.8 H (0.0-0.4) % Neut % (Auto) 52.1 (45-73) % Lymph % (Auto) 36.0 (20-40) % [place] % (Auto) 8.5 (2-11) % Eos % (Auto) 2.1 (0-4) % Baso % (Auto) 0.5 (0-2) % Lymph # (Auto) 3.5 (1.2-4.9) X10*3/uL [place] # (Auto) 0.8 (0.1-1.2) X10*3/uL Eos # (Auto) 0.2 (0.0-0.4) X10*3/uL Baso # (Auto) 0.1 (0.0-0.2) X10*3/uL Abs Immat Gran (auto) 0.08 H (0.00-0.03) X10*3/uL Absolute Neuts (auto) 5.1 (2.0-8.3) x10*3/uL Absolute Nucleated RBC 0.000 (0.0-0.012) X10*3/uL Nucleated RBC % (auto) 0.0 (0.0-0.2) /100WBC Sodium 131 L (135-145) mmol/L Potassium 3.8 (3.3-5.1) mmol/L Chloride 95 L (96-108) mmol/L Carbon Dioxide 26 (22-29) mmol/L Anion Gap 14 (12-20) BUN 7 L (9-16) mg/dL Creatinine 0.78 (0.5-1.4) mg/dL Estim Creat Clear Calc 168.6 Estimated GFR > 60 Random Glucose 93 (60-115) mg/dL Calcium 9.7 D (8.4-10.2) mg/dL Magnesium 1.8 (1.6-2.6) mg/dL Total Bilirubin 1.4 H (0.0-1.0) mg/dL AST 17 (5-37) U/L ALT 21 (0-40) U/L Alkaline Phosphatase 71 (39-117) U/L Total Protein 7.6 (6.5-8.0) g/dL Albumin 4.4 (3.5-5.0) g/dL Urine Color Urine Appearance Urine pH (5.0-9.0) Ur Specific [place] (1.005-1.025) Urine Protein (Neg-Trace) mg/dL Urine Glucose (UA) (Negative) mg/dL Urine Ketones (Negative) mg/dL Urine Blood (Negative) Urine Nitrite (Negative) Ur Leukocyte Esterase (Negative) Urine Opiates Screen (Not Detect) Urine Fentanyl Screen (Not Detect) Ur Barbiturates Screen (Not Detect) Ur Phencyclidine Scrn (Not Detect) Ur Amphetamines Screen (Not Detect) U Benzodiazepines Scrn (Not Detect) Urine Cocaine Screen (Not Detect) U Marijuana (THC) Screen (Not Detect) Influenza Type A (PCR) NEGATIVE (Negative) Influenza Type B (PCR) NEGATIVE (Negative) RSV RNA Qual (PCR) NEGATIVE (Negative) SARS-CoV-2 RNA (RT-PCR) NEGATIVE (Negative) 08/26/22 08/26/22 Range/Units 15:51 15:51 WBC (4.8-10.8) X10*3/uL RBC (4.60-5.80) X10*6/uL Hgb (14.0-18.0) g/dl Hct (42.0-52.0) % MCV (80.0-98.0) fL MCH (27.0-33.0) pg MCHC (31.0-36.0) g/dl RDW (11.0-16.0) % Plt Count (160-400) X10*3/uL MPV (9.4-12.4) fL Immature Gran % (Auto) (0.0-0.4) % Neut % (Auto) (45-73) % Lymph % (Auto) (20-40) % [place] % (Auto) (2-11) % Eos % (Auto) (0-4) % Baso % (Auto) (0-2) % Lymph # (Auto) (1.2-4.9) X10*3/uL [place] # (Auto) (0.1-1.2) X10*3/uL Eos # (Auto) (0.0-0.4) X10*3/uL Baso # (Auto) (0.0-0.2) X10*3/uL Abs Immat Gran (auto) (0.00-0.03) X10*3/uL Absolute Neuts (auto) (2.0-8.3) x10*3/uL Absolute Nucleated RBC (0.0-0.012) X10*3/uL Nucleated RBC % (auto) (0.0-0.2) /100WBC Sodium (135-145) mmol/L Potassium (3.3-5.1) mmol/L Chloride (96-108) mmol/L Carbon Dioxide (22-29) mmol/L Anion Gap (12-20) BUN (9-16) mg/dL Creatinine (0.5-1.4) mg/dL Estim Creat Clear Calc Estimated GFR Random Glucose (60-115) mg/dL Calcium (8.4-10.2) mg/dL Magnesium (1.6-2.6) mg/dL Total Bilirubin (0.0-1.0) mg/dL AST (5-37) U/L ALT (0-40) U/L Alkaline Phosphatase (39-117) U/L Total Protein (6.5-8.0) g/dL Albumin (3.5-5.0) g/dL Urine Color Yellow Urine Appearance Clear Urine pH 6.0 (5.0-9.0) Ur Specific [place] <= 1.005 (1.005-1.025) Urine Protein Negative (Neg-Trace) mg/dL Urine Glucose (UA) Negative (Negative) mg/dL Urine Ketones Negative (Negative) mg/dL Urine Blood Negative (Negative) Urine Nitrite Negative (Negative) Ur Leukocyte Esterase Negative (Negative) Urine Opiates Screen Not Detected (Not Detect) Urine Fentanyl Screen Not Detected (Not Detect) Ur Barbiturates Screen Not Detected (Not Detect) Ur Phencyclidine Scrn Not Detected (Not Detect) Ur Amphetamines Screen Not Detected (Not Detect) U Benzodiazepines Scrn Not Detected (Not Detect) Urine Cocaine Screen Not Detected (Not Detect) U Marijuana (THC) Screen POSITIVE H (Not Detect) Influenza Type A (PCR) (Negative) Influenza Type B (PCR) (Negative) RSV RNA Qual (PCR) (Negative) SARS-CoV-2 RNA (RT-PCR) (Negative) <ALMA Mcfadden - Last Filed: 08/26/22 14:25> Lab Results 08/26/22 08/26/22 08/26/22 Range/Units 14:29 14:29 14:29 WBC 9.8 (4.8-10.8) X10*3/uL RBC 5.72 (4.60-5.80) X10*6/uL Hgb 16.8 (14.0-18.0) g/dl Hct 47.3 (42.0-52.0) % MCV 82.7 (80.0-98.0) fL MCH 29.4 (27.0-33.0) pg MCHC 35.5 (31.0-36.0) g/dl RDW 11.9 (11.0-16.0) % Plt Count 294 (160-400) X10*3/uL MPV 9.2 L (9.4-12.4) fL Immature Gran % (Auto) 0.8 H (0.0-0.4) % Neut % (Auto) 52.1 (45-73) % Lymph % (Auto) 36.0 (20-40) % [place] % (Auto) 8.5 (2-11) % Eos % (Auto) 2.1 (0-4) % Baso % (Auto) 0.5 (0-2) % Lymph # (Auto) 3.5 (1.2-4.9) X10*3/uL [place] # (Auto) 0.8 (0.1-1.2) X10*3/uL Eos # (Auto) 0.2 (0.0-0.4) X10*3/uL Baso # (Auto) 0.1 (0.0-0.2) X10*3/uL Abs Immat Gran (auto) 0.08 H (0.00-0.03) X10*3/uL Absolute Neuts (auto) 5.1 (2.0-8.3) x10*3/uL Absolute Nucleated RBC 0.000 (0.0-0.012) X10*3/uL Nucleated RBC % (auto) 0.0 (0.0-0.2) /100WBC Sodium 131 L (135-145) mmol/L Potassium 3.8 (3.3-5.1) mmol/L Chloride 95 L (96-108) mmol/L Carbon Dioxide 26 (22-29) mmol/L Anion Gap 14 (12-20) BUN 7 L (9-16) mg/dL Creatinine 0.78 (0.5-1.4) mg/dL Estim Creat Clear Calc 168.6 Estimated GFR > 60 Random Glucose 93 (60-115) mg/dL Calcium 9.7 D (8.4-10.2) mg/dL Magnesium 1.8 (1.6-2.6) mg/dL Total Bilirubin 1.4 H (0.0-1.0) mg/dL AST 17 (5-37) U/L ALT 21 (0-40) U/L Alkaline Phosphatase 71 (39-117) U/L Total Protein 7.6 (6.5-8.0) g/dL Albumin 4.4 (3.5-5.0) g/dL Urine Color Urine Appearance Urine pH (5.0-9.0) Ur Specific [place] (1.005-1.025) Urine Protein (Neg-Trace) mg/dL Urine Glucose (UA) (Negative) mg/dL Urine Ketones (Negative) mg/dL Urine Blood (Negative) Urine Nitrite (Negative) Ur Leukocyte Esterase (Negative) Urine Opiates Screen (Not Detect) Urine Fentanyl Screen (Not Detect) Ur Barbiturates Screen (Not Detect) Ur Phencyclidine Scrn (Not Detect) Ur Amphetamines Screen (Not Detect) U Benzodiazepines Scrn (Not Detect) Urine Cocaine Screen (Not Detect) U Marijuana (THC) Screen (Not Detect) Influenza Type A (PCR) NEGATIVE (Negative) Influenza Type B (PCR) NEGATIVE (Negative) RSV RNA Qual (PCR) NEGATIVE (Negative) SARS-CoV-2 RNA (RT-PCR) NEGATIVE (Negative) 08/26/22 08/26/22 Range/Units 15:51 15:51 WBC (4.8-10.8) X10*3/uL RBC (4.60-5.80) X10*6/uL Hgb (14.0-18.0) g/dl Hct (42.0-52.0) % MCV (80.0-98.0) fL MCH (27.0-33.0) pg MCHC (31.0-36.0) g/dl RDW (11.0-16.0) % Plt Count (160-400) X10*3/uL MPV (9.4-12.4) fL Immature Gran % (Auto) (0.0-0.4) % Neut % (Auto) (45-73) % Lymph % (Auto) (20-40) % [place] % (Auto) (2-11) % Eos % (Auto) (0-4) % Baso % (Auto) (0-2) % Lymph # (Auto) (1.2-4.9) X10*3/uL [place] # (Auto) (0.1-1.2) X10*3/uL Eos # (Auto) (0.0-0.4) X10*3/uL Baso # (Auto) (0.0-0.2) X10*3/uL Abs Immat Gran (auto) (0.00-0.03) X10*3/uL Absolute Neuts (auto) (2.0-8.3) x10*3/uL Absolute Nucleated RBC (0.0-0.012) X10*3/uL Nucleated RBC % (auto) (0.0-0.2) /100WBC Sodium (135-145) mmol/L Potassium (3.3-5.1) mmol/L Chloride (96-108) mmol/L Carbon Dioxide (22-29) mmol/L Anion Gap (12-20) BUN (9-16) mg/dL Creatinine (0.5-1.4) mg/dL Estim Creat Clear Calc Estimated GFR Random Glucose (60-115) mg/dL Calcium (8.4-10.2) mg/dL Magnesium (1.6-2.6) mg/dL Total Bilirubin (0.0-1.0) mg/dL AST (5-37) U/L ALT (0-40) U/L Alkaline Phosphatase (39-117) U/L Total Protein (6.5-8.0) g/dL Albumin (3.5-5.0) g/dL Urine Color Yellow Urine Appearance Clear Urine pH 6.0 (5.0-9.0) Ur Specific [place] <= 1.005 (1.005-1.025) Urine Protein Negative (Neg-Trace) mg/dL Urine Glucose (UA) Negative (Negative) mg/dL Urine Ketones Negative (Negative) mg/dL Urine Blood Negative (Negative) Urine Nitrite Negative (Negative) Ur Leukocyte Esterase Negative (Negative) Urine Opiates Screen Not Detected (Not Detect) Urine Fentanyl Screen Not Detected (Not Detect) Ur Barbiturates Screen Not Detected (Not Detect) Ur Phencyclidine Scrn Not Detected (Not Detect) Ur Amphetamines Screen Not Detected (Not Detect) U Benzodiazepines Scrn Not Detected (Not Detect) Urine Cocaine Screen Not Detected (Not Detect) U Marijuana (THC) Screen POSITIVE H (Not Detect) Influenza Type A (PCR) (Negative) Influenza Type B (PCR) (Negative) RSV RNA Qual (PCR) (Negative) SARS-CoV-2 RNA (RT-PCR) (Negative) <ALMA Doyle - Last Filed: 08/26/22 19:16> Independent Interpretation I performed an independent interpretation of an: CT Scan <ALMA Doyle - Last Filed: 08/26/22 19:16> Interpretation: FINDINGS: LUNG BASES: The visualized lung bases are unremarkable.? LIVER, GALLBLADDER, AND BILIARY TREE: Unremarkable. PANCREAS: Unremarkable.? SPLEEN: Unremarkable.? ADRENAL GLANDS: Unremarkable.? KIDNEYS AND URETERS: The kidneys are normal in size, shape, and attenuation. No hydronephrosis, hydroureter, or calculi seen. No perinephric stranding. ? BLADDER: Unremarkable.? GASTROINTESTINAL TRACT: The small and large bowel are unremarkable. The appendix is unremarkable.? ABDOMINAL WALL: No significant hernia is appreciated.? LYMPH NODES: No lymphadenopathy. VASCULAR: Unremarkable. PELVIC VISCERA: Unremarkable.? OSSEOUS STRUCTURES: Unremarkable.? CT/CT abdomen pelvis wo IV con IMPRESSION: No acute intra-abdominal/pelvic abnormality to explain the patient's pain. ? ? <ALMA Doyle - Last Filed: 08/26/22 19:16> Radiology Impression Discussion of test interpretation with radiology: I have reviewed the radiologist's reading. <ALMA Doyle - Last Filed: 08/26/22 19:16> Discharge Plan Discharge Clinical Impression: Left-sided temporomandibular joint pain-dysfunction syndrome, Abdominal pain of unknown cause, Acute hyponatremia <ALMA Mcfadden - Last Filed: 08/26/22 14:25> Patient Disposition: Home, Self-Care <ALMA Mcfadden - Last Filed: 08/26/22 14:25> Instructions: Hyponatremia (ED), Temporomandibular Disorder (ED), Abdominal Pain (ED) <ALMA Mcfadden - Last Filed: 08/26/22 14:25> Prescriptions: New cyclobenzaprine 10 mg tablet 10 mg PO Q8H Qty: 14 0RF ondansetron HCl 4 mg tablet 4 mg PO Q8H Qty: 14 0RF No Action omeprazole 20 mg capsule,delayed release(DR/EC) 20 mg PO DAILY Qty: 30 0RF ondansetron 4 mg tablet,disintegrating 4 mg PO Q8H PRN (Reason: nausea and vomiting) Qty: 7 0RF hydrochlorothiazide 25 mg tablet 25 mg PO DAILY 30 Days Qty: 30 0RF cephalexin 500 mg capsule 500 mg PO Q6H 7 Days Qty: 28 0RF hydrochlorothiazide 25 mg tablet 25 mg PO DAILY Qty: 30 3RF <ALMA Mcfadden - Last Filed: 08/26/22 14:25> Referrals: Lucille Rolle MD [Primary Care Provider] - 2 days <ALMA Mcfadden - Last Filed: 08/26/22 14:25> Interventions: ED Discharge Assessment Last Done: 08/26/22 18:32 <ALMA Mcfadden - Last Filed: 08/26/22 14:25> Discharge Date/Time: 08/26/22 18:32 <ALMA Mcfadden - Last Filed: 08/26/22 14:25> Print Language: Azeri <ALMA Mcfadden - Last Filed: 08/26/22 14:25>
[2022-08-26 14:36] LABS: MANUAL DIFF FLAG NO
[2022-08-26 14:47] LABS: Basophils Absolute Auto 0.1 X10*3/uL (0.0-0.2); Basophils Percent Auto 0.5 % (0-2); Eosinophils Absolute Auto 0.2 X10*3/uL (0.0-0.4); Eosinophils Percent Auto 2.1 % (0-4); Hematocrit 47.3 % (42.0-52.0); Hemoglobin 16.8 g/dl (14.0-18.0); Imm Gran Abs Auto 0.08 X10*3/uL (0.00-0.03); Imm Gran Pct Auto 0.8 % (0.0-0.4); Lymphocytes Absolute Auto 3.5 X10*3/uL (1.2-4.9); Mean Corpuscular HGB Conc 35.5 g/dl (31.0-36.0); Mean Corpuscular Hemoglobin 29.4 pg (27.0-33.0); Mean Corpuscular Volume 82.7 fL (80.0-98.0); Mean Platelet Volume 9.2 fL (9.4-12.4); Monocytes Absolute Auto 0.8 X10*3/uL (0.1-1.2); Monocytes Percent Auto 8.5 % (2-11); Neutrophils Absolute Auto 5.1 x10*3/uL (2.0-8.3); Neutrophils Percent Auto 52.1 % (45-73); Platelet Count 294 X10*3/uL (160-400); Red Blood Count 5.72 X10*6/uL (4.60-5.80); Red Cell Distribution Width 11.9 % (11.0-16.0); White Blood Count 9.8 X10*3/uL (4.8-10.8)
[2022-08-26 14:52] LABS: Alanine Aminotransferase 21 U/L (0-40); Albumin Level 4.4 g/dL (3.5-5.0); Alkaline Phosphatase 71 U/L (39-117); Anion Gap 14 (12-20); Aspartate Amino Transferase 17 U/L (5-37); Bilirubin Total 1.4 mg/dL (0.0-1.0); Blood Urea Nitrogen 7 mg/dL (9-16); Calcium 9.7 mg/dL (8.4-10.2); Carbon Dioxide 26 mmol/L (22-29); Chloride 95 mmol/L (96-108); Creatinine Clr Calc Pharmacy 168.6; Estimated Glomerular Filt Rate > 60; Glucose Random 93 mg/dL (60-115); Magnesium 1.8 mg/dL (1.6-2.6); Potassium 3.8 mmol/L (3.3-5.1); Sodium 131 mmol/L (135-145); Total Protein 7.6 g/dL (6.5-8.0)
[2022-08-26 15:16] LABS: Influenza A PCR NEGATIVE (Negative); Influenza B PCR NEGATIVE (Negative); Resp Syncy Virus RNA Qual PCR NEGATIVE (Negative); SARS COV2 PCR INHOUSE NEGATIVE (Negative)
--- NOTE | 2022-08-26 15:33 | ECG_ITS ---
Test Reason : CP Blood Pressure : / mmHG Vent. Rate : 063 BPM Atrial Rate : 063 BPM P-R Int : 144 ms QRS Dur : 108 ms QT Int : 436 ms P-R-T Axes : 030 -07 010 degrees QTc Int : 446 ms Normal sinus rhythm with sinus arrhythmia Normal ECG When compared with ECG of 11-SEP-2021 08:55, No significant change was found Referred By: Shayna Panda Electronically Signed By:MICHAEL PRUITT
[2022-08-26 16:01] LABS: Appearance Urine Clear; Color Urine Yellow; Glucose Urine UA Negative (Negative); Leukocyte Esterase Urine Negative (Negative); Nitrite Urine Negative (Negative); Specific Gravity - Urine <= 1.005 (1.005-1.025); Urine Blood Negative (Negative); Urine Ketones Negative (Negative); Urine Protein Negative (Neg-Trace)
[2022-08-26] MEDS: Cyclobenzaprine HCl 10 MG TABLET PO (17:16)
[2022-08-26 17:41] LABS: Amphetamine Screen Urine Not Detected (Not Detect); Barbiturates, Urine Not Detected (Not Detect); Benzodiazepines Screen Urine Not Detected (Not Detect); Cannabinoid Screen Urine POSITIVE (Not Detect); Cocaine Screen Urine Not Detected (Not Detect); Fentanyl, urine Not Detected (Not Detect); Opiate Screen Urine Not Detected (Not Detect); Phencyclidine Screen Urine Not Detected (Not Detect)
== END 2022-08-26 18:32 | disposition home or self-care (01) ==
PROVIDERS: Physician Assistant Medical; Emergency Provider Emergency Medicine; PCP Internal Medicine
DX: M26.602 Left temporomandibular joint disorder, unspecified (principal); E87.1 Hypo-osmolality and hyponatremia; R10.12 Left upper quadrant pain; R51.9 Headache, unspecified; Z20.822 Contact with and (suspected) exposure to COVID-19; Z20.828 Contact with and (suspected) exposure to other viral communicable diseases; F12.90 Cannabis use, unspecified, uncomplicated; I10 Essential (primary) hypertension; Z87.820 Personal history of traumatic brain injury
CPT/HCPCS: 0241U; 74176; 80053; 80307; 81003; 83735; 85025; 93005; 99284

== ENCOUNTER 2022-09-01 00:16 | Emergency (ER) | payer OTHER, SELFPAY ==
[2022-09-01 00:20] VITALS: BP 133/52; PULSE 99; O2SAT 99
[2022-09-01 00:29] VITALS: BP 153/106; PULSE 87; RESP 20; O2SAT 97
[2022-09-01 00:36] VITALS: BP 153/106; PULSE 87; RESP 16; O2SAT 97; BMI 46.0
--- NOTE | 2022-09-01 00:51 | ED.OVERDOSE ---
HPI - Overdose General Chief Complaint: Overdose Stated Complaint: drug use Time Seen by Provider: 09/01/22 00:47 Source: patient and EMS Mode of arrival: EMS Limitations: no limitations History of Present Illness HPI Narrative: Patient comes to the emergency room complaining of an accidental overdose. Patient states that he was smoking marijuana at a bus stop with his friends. The next thing he knows, patient became unresponsive. Patient was given 16 mg of intranasal Narcan by bystanders, patient woke up immediately. Patient states that he believes his marijuana was laced with something. At this time, patient feels well. Patient denies any chest pain or shortness of breath, no history of syncopal episodes. Patient denies suicidal or homicidal ideation Related Data Previous Rx's Medication Instructions Recorded omeprazole 20 mg capsule,delayed 20 mg PO DAILY #30 caps 08/05/21 release hydrochlorothiazide 25 mg tablet 25 mg PO DAILY #30 tabs 09/11/21 ondansetron 4 mg disintegrating 4 mg PO Q8H PRN nausea and 09/23/21 tablet vomiting #7 tabs cephalexin 500 mg capsule 500 mg PO Q6H 7 days #28 caps 10/10/21 hydrochlorothiazide 25 mg tablet 25 mg PO DAILY 1 month #30 tabs 10/10/21 cyclobenzaprine 10 mg tablet 10 mg PO Q8H #14 tabs 08/26/22 ondansetron HCl 4 mg tablet 4 mg PO Q8H #14 tabs 08/26/22 Allergies Allergy/AdvReac Type Severity Reaction Status Date / Time bee pollen [BEE STINGS] Allergy Unknown SWELLING Verified 08/15/21 08:48 acetaminophen Allergy Swelling Verified 09/23/21 09:27 ibuprofen Allergy Swelling Verified 09/23/21 09:27 seafood Allergy Itching Verified 08/15/21 08:48 Review of Systems Review of Systems: Constitutional : No Weight loss, No Fever, No Chills, No Night Sweats, No Fatigue, No Malaise ENT/Mouth : No Hearing loss, No Ear Pain, No Nasal Congestion, No Sinus Pain, No Hoarseness, No sore throat, No Rhinorrhea, No Swallowing Difficulty Eyes: No Eye Pain, No Swelling, No Redness, No Foreign Body, No Discharge, No Vision Changes Cardiovascular : No Chest Pain, No SOB, No Dyspnea on Exertion, No Orthopnea, No Edema, No Palpitations Respiratory : No Cough, No Sputum, No Wheezing, No Smoke Exposure, No Dyspnea Gastrointestinal : No Nausea, No Vomiting, No Diarrhea, No Constipation, No abdominal Pain, No Hematochezia, No Melena Genitourinary : no irregular bleeding, No Dysuria, No Urinary Frequency, No Hematuria, No Urinary Incontinence, No Urgency, No Flank Pain, No Urinary Flow Changes, No Hesitancy Musculoskeletal : No joint pain, No Myalgias, No Joint Swelling Skin : No Skin Lesions, No rash Neuro : No Weakness, No Numbness, No Paresthesias, No Loss of Consciousness, No Dizziness, No Headache Psych : No Anxiety/Panic, No Depression, No SI/HI/AH/VH, No Social Issues, Heme/Lymph: No Bruising, No Bleeding,No Lymphadenopathy Endocrine : No Polyuria, No Polydipsia, No Temperature Intolerance PMFSH Past Medical History Medical History HTN (hypertension) TBI (traumatic brain injury) Social History Social History Patient Tobacco Use Status: Never used Tobacco Substance Use Type: Marijuana Advance Directives: No Physical Exam Vital Signs: Vital Signs: Last Vital Signs Pulse 87 09/01/22 00:36 Resp 16 09/01/22 00:36 BP 153/106 H 09/01/22 00:36 Pulse Ox 97 09/01/22 00:36 O2 Del Method 09/01/22 00:36 BMI result Body Mass Index 46.0 Const: Other: Appearance: Alert. Oriented X3. No acute distress. Eyes: Pupils equal, round and reactive to light. ENT: Pharynx normal. Neck: Normal inspection. Neck supple. No lymph nodes noted. No crepitus CVS: Normal heart rate and rhythm. Pulses normal. Normal S1 and S2 Respiratory: No respiratory distress. Breath sounds normal. No Wheezing. No rales Abdomen: Soft and nontender. No rigidity. No distention. Skin: Skin warm and dry. Normal skin color. Normal skin turgor. Extremities: No lower extremity edema. No Lacerations. No Rash Neuro: Oriented X 3. No motor deficit. No sensory deficit. Moving all extremities. No slurred speech. CN 2 through 12 grossly intact Psych: calm, cooperative, normal affect Course Course Course Narrative: -patient is alert and oriented x3, no acute distress, asymptomatic -patient agrees to stay 1 more hour for observation. Is likely the patient's marijuana was laced with narcotics. -patient declined care team consult/marc burrows Medical Decision Making Medical Decision Making MDM Narrative: -accidental overdose Discharge Plan Discharge Clinical Impression: Drug overdose Patient Disposition: Home, Self-Care Instructions: Adult Overdose (ED) Additional Instructions: Please follow-up with your primary care physician tomorrow. If you have any worsening or new symptoms, please return to the emergency room or call 911 Prescriptions: No Action omeprazole 20 mg capsule,delayed release(DR/EC) 20 mg PO DAILY Qty: 30 0RF ondansetron 4 mg tablet,disintegrating 4 mg PO Q8H PRN (Reason: nausea and vomiting) Qty: 7 0RF hydrochlorothiazide 25 mg tablet 25 mg PO DAILY 30 Days Qty: 30 0RF cephalexin 500 mg capsule 500 mg PO Q6H 7 Days Qty: 28 0RF cyclobenzaprine 10 mg tablet 10 mg PO Q8H Qty: 14 0RF ondansetron HCl 4 mg tablet 4 mg PO Q8H Qty: 14 0RF hydrochlorothiazide 25 mg tablet 25 mg PO DAILY Qty: 30 3RF Interventions: [place]-Suicide Risk Severity Scale Last Done: 09/01/22 00:41
--- OUTSIDE RECORDS SUMMARY | 2022-09-01 00:54 | XMS_ITS | Continuity of Care Document ---
:1990 Author Organization [facility] Address [address] [place] [address]- Care Team Providers Name Role Phone Trini Meng MD Primary Care Physician Encounter [facility] ACCT R [id number] Date(s): 03/24/22 - 05/13/22 [facility] [address] [place], [place] [address] Attending Physician: Gina Nix MD, V Immunizations Given and Recorded Vaccine Date Status Refusal Reason SARS-CoV-2 (COVID-19) mRNA BNT-162b2 vac 06/16/21 Recorde d SARS-CoV-2 (COVID-19) mRNA BNT-162b2 vac 05/26/21 Recorde d Patient Care team information PersonnelName: Trini Meng MD Address: Address: [place], [place] [address]
--- OUTSIDE RECORDS SUMMARY | 2022-09-01 00:54 | XMS_ITS | Continuity of Care Document ---
:1990 Author Organization [facility] Address [address] [place] [address]- Care Team Providers Name Role Phone Trini Meng MD Primary Care Physician Encounter [facility] Date(s): 04/13/22 - 05/13/22 [facility] [address] [place], [place] [address] Attending Physician: Cesario Mosqueda Admitting Physician: Cesario Mosqueda Referring Physician: AdmtrCesario Immunizations Given and Recorded Vaccine Date Status Refusal Reason SARS-CoV-2 (COVID-19) mRNA BNT-162b2 vac 06/16/21 Recorde d SARS-CoV-2 (COVID-19) mRNA BNT-162b2 vac 05/26/21 Recorde d Patient Care team information PersonnelName: Trini Meng MD Address: Address: [place], [place] [address]
[2022-09-01 01:01] LABS: Amphetamine Screen Urine Not Detected (Not Detect); Barbiturates, Urine Not Detected (Not Detect); Benzodiazepines Screen Urine Not Detected (Not Detect); Cannabinoid Screen Urine POSITIVE (Not Detect); Cocaine Screen Urine POSITIVE (Not Detect); Fentanyl, urine POSITIVE (Not Detect); Opiate Screen Urine Not Detected (Not Detect); Phencyclidine Screen Urine Not Detected (Not Detect)
[2022-09-01] MEDS: Naloxone HCl Nasal TAKE HOME 4 MG SPRAY NOSTRILALT (02:07)
== END 2022-09-01 02:07 | disposition home or self-care (01) ==
PROVIDERS: Emergency Provider Emergency Medicine
DX: R40.4 Transient alteration of awareness (principal); T50.901A Poisoning by unspecified drugs, medicaments and biological substances, accidental (unintentional), initial encounter; Y92.521 Bus station as the place of occurrence of the external cause; I10 Essential (primary) hypertension; F12.90 Cannabis use, unspecified, uncomplicated; Z87.820 Personal history of traumatic brain injury; Z79.899 Other long term (current) drug therapy
CPT/HCPCS: 80307; 99283

== ENCOUNTER 2023-01-04 19:01 | Emergency (ER) | payer MEDICAID, SELFPAY ==
--- NOTE | ~2023-01-04 | XR_ITS ---
EXAMINATION: XR CHEST CLINICAL INFORMATION: Reason for Exam pain COMPARISON: Chest radiograph 09/23/2021 TECHNIQUE: 2 views of the chest FINDINGS: Lines and tubes: None. Clear lungs. No pleural effusion. No pneumothorax. Normal cardiomediastinal silhouette. XR/XR chest 2V IMPRESSION: * Clear lungs.
[2023-01-04 19:23] VITALS: BP 148/102; PULSE 108; RESP 18; TEMP 36.2; O2SAT 95; BMI 25.1
--- NOTE | 2023-01-04 19:26 | ECG_ITS ---
Test Reason : CHEST PAIN Blood Pressure : / mmHG Vent. Rate : 093 BPM Atrial Rate : 093 BPM P-R Int : 136 ms QRS Dur : 094 ms QT Int : 366 ms P-R-T Axes : 027 072 059 degrees QTc Int : 455 ms Normal sinus rhythm Normal ECG When compared with ECG of 26-AUG-2022 15:47, Questionable change in QRS axis T wave inversion no longer evident in Inferior leads Referred By: Polo Mc Electronically Signed By:Quintin Paris
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
[2023-01-04 20:24] LABS: COVID-19 Test Negative (Negative); IDNOW Serial# 08D9AD1C
[2023-01-04 21:15] VITALS: BP 148/99; PULSE 100; RESP 20; O2SAT 96
== END 2023-01-04 22:11 | disposition home or self-care (01) ==
PROVIDERS: Physician Assistant; Emergency Provider Emergency Medicine; PCP Internal Medicine
DX: J06.9 Acute upper respiratory infection, unspecified (principal); R09.81 Nasal congestion; Z20.822 Contact with and (suspected) exposure to COVID-19; I10 Essential (primary) hypertension; Z87.820 Personal history of traumatic brain injury; Z79.899 Other long term (current) drug therapy
CPT/HCPCS: 71046; 87635; 93005; 99283; 99285

== ENCOUNTER 2023-08-05 02:14 | Emergency (ER) | payer MEDICAID, SELFPAY ==
[2023-08-05 02:28] VITALS: BP 162/98; PULSE 50; RESP 14; TEMP 36.6; O2SAT 96
[2023-08-05 02:35] VITALS: BP 162/98; PULSE 50; RESP 14; TEMP 36.6; O2SAT 96; BMI 39.0
[2023-08-05 02:55] LABS: Alanine Aminotransferase 46 U/L (0-40); Albumin Level 3.9 g/dL (3.5-5.0); Alkaline Phosphatase 61 U/L (39-117); Anion Gap 11 (12-20); Aspartate Amino Transferase 29 U/L (5-37); Bilirubin Total 0.5 mg/dL (0.0-1.0); Blood Urea Nitrogen 12 mg/dL (9-16); Calcium 9.3 mg/dL (8.4-10.2); Carbon Dioxide 28 mmol/L (22-29); Chloride 105 mmol/L (96-108); Creatinine Clr Calc Pharmacy 191.9; Estimated Glomerular Filt Rate > 60; Glucose Random 103 mg/dL (60-115); Potassium 4.2 mmol/L (3.3-5.1); Sodium 140 mmol/L (135-145); Total Protein 7.3 g/dL (6.5-8.0)
[2023-08-05 04:46] VITALS: BP 147/89; PULSE 69; RESP 17; TEMP 36.5; O2SAT 97
--- NOTE | 2023-08-05 04:54 | ED.GENADULT ---
HPI - General Adult General Chief complaint: General Medical Stated complaint: Hand pain/No Inj Time Seen by Provider: 08/05/23 04:50 Source: patient Mode of arrival: ambulatory Limitations: no limitations History of Present Illness HPI narrative: Patient comes to the emergency room complaining of right-sided hand pain for 24 hours. Patient eyes numbness or tingling, no chest pain or shortness of breath. No trauma. Related Data Previous Rx's Medication Instructions Recorded omeprazole 20 mg capsule,delayed 20 mg PO DAILY #30 caps 08/05/21 release hydrochlorothiazide 25 mg tablet 25 mg PO DAILY #30 tabs 09/11/21 ondansetron 4 mg disintegrating 4 mg PO Q8H PRN nausea and 09/23/21 tablet vomiting #7 tabs cephalexin 500 mg capsule 500 mg PO Q6H 7 days #28 caps 10/10/21 hydrochlorothiazide 25 mg tablet 25 mg PO DAILY 1 month #30 tabs 10/10/21 cyclobenzaprine 10 mg tablet 10 mg PO Q8H #14 tabs 08/26/22 ondansetron HCl 4 mg tablet 4 mg PO Q8H #14 tabs 08/26/22 fluticasone propionate 50 2 spray intranasal DAILY #16 grams 01/04/23 mcg/actuation nasal spray,suspension (Flonase Allergy Relief) lidocaine 4 % topical patch 1 patch topical TID PRN pain #10 ea 08/05/23 Allergies Allergy/AdvReac Type Severity Reaction Status Date / Time bee pollen [BEE STINGS] Allergy Unknown SWELLING Verified 01/04/23 19:23 acetaminophen Allergy Swelling Verified 01/04/23 19:23 ibuprofen Allergy Swelling Verified 01/04/23 19:23 seafood Allergy Itching Verified 01/04/23 19:23 Review of Systems Review of Systems: Constitutional : No Weight loss, No Fever, No Chills, No Night Sweats, No Fatigue, No Malaise ENT/Mouth : No Hearing loss, No Ear Pain, No Nasal Congestion, No Sinus Pain, No Hoarseness, No sore throat, No Rhinorrhea, No Swallowing Difficulty Eyes: No Eye Pain, No Swelling, No Redness, No Foreign Body, No Discharge, No Vision Changes Cardiovascular : No Chest Pain, No SOB, No Dyspnea on Exertion, No Orthopnea, No Edema, No Palpitations Respiratory : No Cough, No Sputum, No Wheezing, No Smoke Exposure, No Dyspnea Gastrointestinal : No Nausea, No Vomiting, No Diarrhea, No Constipation, No abdominal Pain, No Hematochezia, No Melena Genitourinary : no irregular bleeding, No Dysuria, No Urinary Frequency, No Hematuria, No Urinary Incontinence, No Urgency, No Flank Pain, No Urinary Flow Changes, No Hesitancy Musculoskeletal : Complaining of right hand pain No Myalgias, No Joint Swelling Skin : No Skin Lesions, No rash Neuro : No Weakness, No Numbness, No Paresthesias, No Loss of Consciousness, No Dizziness, No Headache Psych : No Anxiety/Panic, No Depression, No SI/HI/AH/VH, No Social Issues, Heme/Lymph: No Bruising, No Bleeding,No Lymphadenopathy Endocrine : No Polyuria, No Polydipsia, No Temperature Intolerance PMFSH Past Medical History Onset Date is defined in the Problem List Problems that require an onset date and time if occurred within 24 hrs of arrival to the ED Aortic Dissection and Rupture; Neurologic impairment; Cardiopulmonary Arrest; Endotracheal Intubation; Insertion or Replacement of Mechanical Circulatory Assist Device Medical History TBI (traumatic brain injury) HTN (hypertension) Social History Social History Alcohol intake: never Patient Tobacco Use Status: Never used Tobacco Substance Use Type: Marijuana Advance Directives: No Advance Directives Information Provided: Yes Physical Exam ED Vital Signs: Vital Signs - 24 hr 08/05/23 02:28 08/05/23 02:35 08/05/23 04:46 Temperature 98 F 98 F 97.7 F Pulse Rate 50 50 69 Respiratory Rate 14 14 17 Blood Pressure 162/98 H 162/98 H 147/89 H Pulse Oximetry 96 96 97 Oxygen Delivery Method Room Air Room Air Room Air BMI result Body Mass Index 39.0 Const Other: Appearance: Alert. Oriented X3. No acute distress. Eyes: Pupils equal, round and reactive to light. ENT: Pharynx normal. Neck: Normal inspection. Neck supple. No lymph nodes noted. No crepitus CVS: Normal heart rate and rhythm. Pulses normal. Normal S1 and S2 Respiratory: No respiratory distress. Breath sounds normal. No Wheezing. No rales Abdomen: Soft and nontender. No rigidity. No distention. Skin: Skin warm and dry. Normal skin color. Normal skin turgor. Extremities: No lower extremity edema. No Lacerations. No Rash, able to flex and extend all fingers hands, normal strength Neuro: Oriented X 3. No motor deficit. No sensory deficit. Moving all extremities. No slurred speech. CN 2 through 12 grossly intact Psych: calm, cooperative, normal affect Medical Decision Making Medical Decision Making [facility] Narrative: -my interpretation of EKG: Normal sinus rhythm, heart rate 48, no ST segment depression or elevation, nonspecific T-wave inversion in lead 3, QTC 396 -my interpretation of labs, hematology and chemistry unremarkable, troponin negative -reviewing patient's previous labs, patient has tested for cocaine in the past. Patient states that this time he has not used cocaine, only uses marijuana. -patient states the Tylenol may help his pain and is requesting to have his hand wrapped on [place] wrap Differential Diagnosis Differential Diagnoses: The differential diagnosis associated with the presentation includes (Anxiety, depression, musculoskeletal, ACS) Admission/Observation Consideration of admission/observation: Escalation of care including admission/observation considered (Given patient's constellation of symptoms, and cocaine abuse, patient was considered.) Lab Data [facility] Lab Attestation statement: I reviewed the patient's lab results. 08/05/23 02:33 08/05/23 02:33 Labs: Lab Results 08/05/23 Range/Units 02:33 WBC 10.0 (4.8-10.8) X10*3/uL RBC 5.15 (4.60-5.80) X10*6/uL Hgb 15.4 (14.0-18.0) g/dl Hct 44.3 (42.0-52.0) % MCV 86.0 (80.0-98.0) fL MCH 29.9 (27.0-33.0) pg MCHC 34.8 (31.0-36.0) g/dl RDW 11.9 (11.0-16.0) % Plt Count 282 (160-400) X10*3/uL MPV 9.0 L (9.4-12.4) fL Absolute Nucleated RBC 0.000 (0.0-0.012) X10*3/uL Nucleated RBC % (auto) 0.0 (0.0-0.2) /100WBC Sodium 140 (135-145) mmol/L Potassium 4.2 (3.3-5.1) mmol/L Chloride 105 (96-108) mmol/L Carbon Dioxide 28 (22-29) mmol/L Anion Gap 11 L (12-20) BUN 12 (9-16) mg/dL Creatinine 0.75 (0.5-1.4) mg/dL Estim Creat Clear Calc 191.9 Estimated GFR > 60 Random Glucose 103 (60-115) mg/dL Calcium 9.3 (8.4-10.2) mg/dL Total Bilirubin 0.5 (0.0-1.0) mg/dL AST 29 (5-37) U/L ALT 46 H (0-40) U/L Alkaline Phosphatase 61 (39-117) U/L Troponin I High Sens < 2.7 (<3.5-35.0) ng/L Total Protein 7.3 (6.5-8.0) g/dL Albumin 3.9 (3.5-5.0) g/dL Independent Interpretation I performed an independent interpretation of an: EKG Critical Care Time Critical Care Time Critical Care Time: Yes Total Critical Care Time: 30 Attestation: I have personally provided critical care time. Time includes review of lab data, radiology results, discussion with consultants, and monitoring for potential decompensation. Intervention performed as documented. Discharge Plan Discharge Clinical Impression: Arthralgia of hand, right Patient Disposition: Home, Self-Care Instructions: Arthralgia (ED) Additional Instructions: Please follow-up with your primary care physician tomorrow. If you have any worsening or new symptoms, please return to the emergency room or call 911 Prescriptions: New lidocaine 4 % adhesive patch,medicated 1 patch topical TID PRN (Reason: pain) Qty: 10 0RF No Action omeprazole 20 mg capsule,delayed release(DR/EC) 20 mg PO DAILY Qty: 30 0RF ondansetron 4 mg tablet,disintegrating 4 mg PO Q8H PRN (Reason: nausea and vomiting) Qty: 7 0RF hydrochlorothiazide 25 mg tablet 25 mg PO DAILY 30 Days Qty: 30 0RF cephalexin 500 mg capsule 500 mg PO Q6H 7 Days Qty: 28 0RF cyclobenzaprine 10 mg tablet 10 mg PO Q8H Qty: 14 0RF ondansetron HCl 4 mg tablet 4 mg PO Q8H Qty: 14 0RF hydrochlorothiazide 25 mg tablet 25 mg PO DAILY Qty: 30 3RF fluticasone propionate [Flonase Allergy Relief] 50 mcg/actuation spray,suspension 2 spray intranasal DAILY Qty: 16 0RF Rx Instructions: administer into each nostril
--- NOTE | 2023-08-05 05:25 | PC.NURSE ---
per provider samuel bandage applied, positive cms and pulses, full range of motion reviewed discharge instructions with pt. pt verbalized understanding. no sgin of distress.
== END 2023-08-05 05:27 | disposition home or self-care (01) ==
PROVIDERS: Emergency Provider Emergency Medicine
DX: M79.641 Pain in right hand (principal); I10 Essential (primary) hypertension; Z87.820 Personal history of traumatic brain injury
CPT/HCPCS: 36415; 80053; 84484; 85027; 93005; 99283; 99284

== ENCOUNTER → 2023-08-05 02:22 | Outpatient (BNV) | payer MEDICAID, SELFPAY | PROVIDERS: Emergency Provider Emergency Medicine; Visit Provider Internal Medicine Cardiovascular Disease | DX: R00.1 Bradycardia, unspecified (principal) | CPT/HCPCS: 93010 ==

== ENCOUNTER 2023-09-27 17:04 | Emergency (ER) | payer MEDICAID, SELFPAY ==
--- NOTE | 2023-09-27 17:08 | ED.WOUNDLAC ---
HPI - Wound/Laceration General Chief Complaint: Wound/Laceration Stated Complaint: hand laceration from cleaning metal fan Time Seen by Provider: 09/27/23 17:21 Source: patient Mode of arrival: ambulatory Limitations: no limitations History of Present Illness HPI narrative: Patient is a 33 yo, otherwise healthy, male presenting with a small laceration on his left index finger. Patient states he was cleaning a metal industrial fan at work when his hand slipped and collided with a sharp bolt near the base. Patient denies any numbness or tingling. Onset (ago): hour(s) Extremity Location: left: hand (L index finger) Place: work Patient tetanus UTD: Yes Context: accidental Associated symptoms: pain Treatments prior to arrival: bandage Related Data Previous Rx's Medication Instructions Recorded omeprazole 20 mg capsule,delayed 20 mg PO DAILY #30 caps 08/05/21 release hydrochlorothiazide 25 mg tablet 25 mg PO DAILY #30 tabs 09/11/21 ondansetron 4 mg disintegrating 4 mg PO Q8H PRN nausea and 09/23/21 tablet vomiting #7 tabs cephalexin 500 mg capsule 500 mg PO Q6H 7 days #28 caps 10/10/21 hydrochlorothiazide 25 mg tablet 25 mg PO DAILY 1 month #30 tabs 10/10/21 cyclobenzaprine 10 mg tablet 10 mg PO Q8H #14 tabs 08/26/22 ondansetron HCl 4 mg tablet 4 mg PO Q8H #14 tabs 08/26/22 fluticasone propionate 50 2 spray intranasal DAILY #16 grams 01/04/23 mcg/actuation nasal spray,suspension (Flonase Allergy Relief) lidocaine 4 % topical patch 1 patch topical TID PRN pain #10 ea 08/05/23 cefuroxime axetil 250 mg tablet 500 mg (2 x 250 mg) PO BID 7 days 09/27/23 #28 tabs Allergies Allergy/AdvReac Type Severity Reaction Status Date / Time bee pollen [BEE STINGS] Allergy Unknown SWELLING Verified 01/04/23 19:23 acetaminophen Allergy Swelling Verified 01/04/23 19:23 ibuprofen Allergy Swelling Verified 01/04/23 19:23 seafood Allergy Itching Verified 01/04/23 19:23 Review of Systems Constitutional: Constitutional: Reports no additional constitutional complaints, Denies chills, Denies fever(s) and Denies night sweats Eyes: Eyes: Reports no additional eye complaints, Denies blurry vision, Denies change in vision, Denies diplopia, Denies eye discharge, Denies loss of vision and Denies eye pain ENT: Denies dizziness Cardiovascular: Cardiovascular: Reports no additional cardiovascular complaints, Denies chest pain, Denies lightheadedness, Denies Loss of Consciousness and Denies dyspnea Respiratory: Respiratory: Reports no additional respiratory complaints and Denies dyspnea Gastrointestinal: Gastrointestinal: Reports no additional gastrointestinal complaints, Denies abdominal pain, Denies melena, Denies hematochezia, Denies change in bowel habits and Denies change in stool character Genitourinary: Genitourinary: Reports no additional male genitourinary complaints, Denies hematuria, Denies oliguria, Denies difficulty urinating, Denies dysuria, Denies urinary frequency, Denies urinary hesitancy, Denies urinary incontinence and Denies urinary urgency Musculoskeletal: Musculoskeletal: Reports no additional musculoskeletal complaints, Denies numbness and Denies tingling Comments: left index finger laceration Neurologic: Denies dizziness, Denies loss of vision, Denies numbness and Denies tingling Psychiatric: Psychiatric: Reports no additional psychiatric complaints Endocrine: Endocrine: Reports no additional endocrine complaints Hematologic/Lymphatic: Hematologic/Lymphatic: Reports no additional hematologic/lymphatic complaints Allergic/Immunologic: Allergic/Immunologic: Reports no additional allergic/immunologic complaints [facility]LY [facility], [facility] Past Medical History Attestation statement: The following information was validated with the patient. Source: old records reviewed and nursing notes reviewed Medical History TBI (traumatic brain injury) HTN (hypertension) Social History Social History Alcohol intake: never Patient Tobacco Use Status: Never used Tobacco Substance Use Type: Marijuana Advance Directives: No Advance Directives Information Provided: No Physical Exam Vital Signs: Vital Signs: Last Vital Signs Temp 97.3 F 09/27/23 17:09 Pulse 100 09/27/23 17:09 Resp 18 09/27/23 17:09 BP 193/92 H 09/27/23 17:09 Pulse Ox 98 09/27/23 17:09 O2 Del Method Room Air 09/27/23 17:09 BMI result Body Mass Index 43.4 Const: General: cooperative, no acute distress, alert and awake Nutritional Appearance: well nourished Orientation/consciousness: patient oriented x3 Limitations: no limitations HEENT: Head: Yes normal to inspection and Yes atraumatic Ears: hearing grossly normal bilaterally and external ears normal General nose exam: Normal external nose present, no nasal discharge noted and no epistaxis Face and sinus: Yes normal facial exam, No abrasion and No laceration Mouth: Normal oral and palatal mucosa present, no drooling and no muffled voice Eyes: General: appearance normal, both eyes and all related structures Periorbital: periorbital findings normal Eyelids: Yes eyelids normal Conjunctivae: conjunctivae normal Pupils: Equal, round and reactive pupils present EOM: EOMs intact bilaterally Neck: Neck: Yes normal visual inspection, Yes full ROM and Yes no lymphadenopathy Chest: Chest palpation & inspection: normal inspection of the chest Resp: Effort & Inspection: normal respiratory effort and able to speak in complete sentences GI: Inspection: Yes normal to inspection Neuro: General: patient oriented x3 and moves all extremities Cranial nerves: Yes Equal, round and reactive pupils present Cognition (Neuro): normal cognition Motor exam (neuro): 5/5 motor strength present throughout Sensory Exam: Normal double simultaneous stimulation for sensation Coordination: [id number] test normal Extrem: General: Yes full ROM and Yes capillary refill normal Hand/finger images: 1. 2cm flap laceration, no active bleeding Psych: Appearance: grossly normal Mental Status: mental status grossly normal Affect: normal affect Attitude: cooperative Thought process: Normal thought process present Thought content: Normal thought content present Insight: Good insight present (Psych) Course Course Course Narrative: This is a rapid medical exam: Additional HPI, ROS, PE not included below will be deferred to primary provider. Patient is a 33-year old right hand dominant male presenting to the ED with complaint of laceration to left index finger. He was cleaning the inside of an industrial fan, and when he wiped, cut his finger on a screw. Unknown last tetanus. Approx 2cm laceration to radial side of left index finger at PIP, no active bleeding. Plan: tdap, sutures Medications Administered Discontinued Medications Generic Name Dose Route Start Last Admin Trade Name Freq PRN Reason Stop Dose Admin Diphtheria/Tetanus/Acell Pertussis 0.5 ml 09/27/23 17:12 09/27/23 17:20 Diphth,Pertus(Acell),Tet Adult 0.5 Ml Syringe IM 09/27/23 17:13 0.5 ml .ONCE ONE Administration Lidocaine HCl 10 ml 09/27/23 17:31 09/27/23 17:41 Lidocaine Hcl 1 % Mpf 5 Ml Vial SUBCUT 09/27/23 17:32 10 ml ONCE ONE Administration Medical Decision Making Medical Decision Making [facility] Narrative: Patient is a 33 year old assigned male at with no reported medical history presenting to the emergency department today with a left index laceration. Patient's physical exam showed a 2cm left index finger flap like laceration with no active bleeding. I explained my physical exam findings to the patient. I answered all questions asked by the patient. Patient's laceration was repaired, without incident. Patient's PMS was intact prior to and after laceration repair. I stressed the importance of the patient taking his medication as prescribed. I stressed the importance of the patient following up with his primary care provider. I stressed the importance of the patient not getting the affected area wet for at least 7 days and having his sutures removed in 7-10 days. I stressed the importance of the patient performing daily wound checks and dressing changes. I stressed the importance of the patient returning to the emergency department immediately if his symptoms were to worsen or if he were to develop any dizziness, shortness of breath, difficulty breathing, chest pain, blurry vision, loss of vision, nausea, vomiting, abdominal pain, fever, chills, back pain, or any other complaints. Patient verbalized agreement and understanding with this treatment plan and discharge. Differential Diagnosis Differential Diagnoses: The differential diagnosis associated with the presentation includes Laceration Avulsion Abrasion Admission/Observation Consideration of admission/observation: Escalation of care including admission/observation considered Patient would have been admitted to the hospital had his clinical presentation warranted hospital admission. Prescription Management I considered prescription management with: Antibiotic (patient prescribed a prophylactic antibiotic given the mechanism of injury) Procedures Laceration Laceration 1: Site: other (index finger) Side (If applicable): left Size (cm): 2 Description: flap Depth: simple, single layer Local Anesthetic: lidocaine 1% Amount of anesthesia used (mL): 5 Pre-repair: wound explored, irrigated extensively and deep structures intact Skin layer closed with: other (prolene) Size (cm): 5-0 Number of sutures: 3 Technique: simple, interrupted Discharge Plan Discharge Clinical Impression: Laceration Patient Disposition: Home, Self-Care Instructions: Care For Your Stitches (DC), Laceration (DC), Care For Your Absorbable Stitches (ED) Additional Instructions: Do NOT get the affected area wet for at least 7 days. Do NOT soak the affected area. Have your sutures (3) removed in 7-10 days. Take your antibiotic as prescribed. Follow up with your primary care provider. Return to the emergency department immediately if your symptoms worsen or if you develop any dizziness, shortness of breath, difficulty breathing, chest pain, blurry vision, loss of vision, nausea, vomiting, abdominal pain, fever, chills, back pain, or any other complaints. NO moje el ?uzair afectada lisa al menos 7 d?as. NO remoje el ?uzair afectada. Bi que le retiren las suturas (3) en 7 a 10 d?as. [place] young antibi?kenzie seg?n lo recetado. Bi un seguimiento con young proveedor de atenci?n primaria. Regrese al departamento de emergencias inmediatamente si negro s?ntomas empeoran o si presenta mareos, dificultad para respirar, dificultad para respirar, dolor en el pecho, visi?n borrosa, p?rdida de la visi?n, n?useas, v?mitos, dolor abdominal, fiebre, escalofr?os, dolor de espalda o cualquier otras quejas. Prescriptions: New cefuroxime axetil 250 mg tablet 500 mg PO BID 7 Days Qty: 28 0RF No Action omeprazole 20 mg capsule,delayed release(DR/EC) 20 mg PO DAILY Qty: 30 0RF ondansetron 4 mg tablet,disintegrating 4 mg PO Q8H PRN (Reason: nausea and vomiting) Qty: 7 0RF hydrochlorothiazide 25 mg tablet 25 mg PO DAILY 30 Days Qty: 30 0RF cephalexin 500 mg capsule 500 mg PO Q6H 7 Days Qty: 28 0RF cyclobenzaprine 10 mg tablet 10 mg PO Q8H Qty: 14 0RF ondansetron HCl 4 mg tablet 4 mg PO Q8H Qty: 14 0RF hydrochlorothiazide 25 mg tablet 25 mg PO DAILY Qty: 30 3RF fluticasone propionate [Flonase Allergy Relief] 50 mcg/actuation spray,suspension 2 spray intranasal DAILY Qty: 16 0RF Rx Instructions: administer into each nostril lidocaine 4 % adhesive patch,medicated 1 patch topical TID PRN (Reason: pain) Qty: 10 0RF Referrals: [facility] [Provider Group] (Given this was a work place injury, you should follow up with [facility]. Dado que se trat? de august lesi?n en el lugar de trabajo, debe hacer un seguimiento con la conexi?n laboral.) Lucille Rolle MD [Primary Care Provider] - Stand Alone Forms: Work/School Release Interventions: ED Discharge Assessment Last Done: 09/27/23 18:31 Discharge Date/Time: 09/27/23 18:31 Print Language: Citizen [place]
[2023-09-27 17:09] VITALS: BP 193/92; PULSE 100; RESP 18; TEMP 36.3; O2SAT 98; BMI 43.4
[2023-09-27] MEDS: Diphth,Pertus(ACell),Tet Adult 0.5 ML SYRINGE IM (17:20)
[2023-09-27] MEDS: Lidocaine HCl 1 % MPF 5 ML VIAL 10 ML SUBCUT (17:41)
== END 2023-09-27 18:31 | disposition home or self-care (01) ==
PROVIDERS: Emergency Provider Emergency Medicine Emergency Medical Services; PCP Internal Medicine
DX: S61.211A Laceration without foreign body of left index finger without damage to nail, initial encounter (principal); W45.8XXA Other foreign body or object entering through skin, initial encounter; Y93.E9 Activity, other interior property and clothing maintenance; Y92.9 Unspecified place or not applicable; Y99.0 Civilian activity done for income or pay
CPT/HCPCS: 12001; 90471; 90715; 99282; 99284

== ENCOUNTER 2024-06-04 10:43 | Emergency (ER) | payer MEDICAID, SELFPAY ==
--- NOTE | 2024-06-04 | ECG_ITS ---
Test Reason : chest pain Blood Pressure : / mmHG Vent. Rate : 074 BPM Atrial Rate : 074 BPM P-R Int : 132 ms QRS Dur : 100 ms QT Int : 394 ms P-R-T Axes : 044 -02 019 degrees QTc Int : 437 ms Normal sinus rhythm with sinus arrhythmia Normal ECG When compared with ECG of 05-AUG-2023 02:22, Vent. rate has increased BY 26 BPM Referred By: Generic ED Physician Electronically Signed By:MAYANK RIVERA MD
--- NOTE | ~2024-06-04 | XR_ITS ---
EXAMINATION: XR CHEST CLINICAL INFORMATION: CHEST PAIN COMPARISON: X-ray dated January 04, 2023 TECHNIQUE: Frontal view of the chest was obtained. FINDINGS: No consolidation, pleural effusion or pneumothorax. Cardiomediastinal silhouette is normal in size. XR/XR chest 1V IMPRESSION: No acute airspace disease. Electronically signed by: Andrea Henry MD 06/04/2024 02:15 [facility]
[2024-06-04 10:51] VITALS: BP 137/93; PULSE 94; RESP 18; TEMP 36.2; O2SAT 97; BMI 40.1
--- NOTE | 2024-06-04 11:31 | PC.NURSE ---
Pt. states that he just moved here from [place]. States that he ran out of his prescription inhaler because he does not have an established PCP out here in [place] to continue the prescription.
[2024-06-04 11:33] VITALS: BP 125/81; PULSE 80; RESP 18; TEMP 36.7; O2SAT 97
[2024-06-04 11:35] LABS: MANUAL DIFF FLAG NO
[2024-06-04 11:37] LABS: Basophils Absolute Auto 0.1 X10*3/uL (0.0-0.2); Basophils Percent Auto 0.8 % (0-2); Eosinophils Absolute Auto 0.2 X10*3/uL (0.0-0.4); Eosinophils Percent Auto 2.9 % (0-4); Hematocrit 46.3 % (42.0-52.0); Hemoglobin 16.4 g/dl (14.0-18.0); Imm Gran Abs Auto 0.05 X10*3/uL (0.00-0.03); Imm Gran Pct Auto 0.6 % (0.0-0.4); Lymphocytes Absolute Auto 2.6 X10*3/uL (1.2-4.9); Lymphocytes Percent Auto 32.3 % (20-40); Mean Corpuscular HGB Conc 35.4 g/dl (31.0-36.0); Mean Corpuscular Hemoglobin 30.7 pg (27.0-33.0); Mean Corpuscular Volume 86.5 fL (80.0-98.0); Mean Platelet Volume 9.5 fL (9.4-12.4); Monocytes Absolute Auto 0.8 X10*3/uL (0.1-1.2); Monocytes Percent Auto 9.5 % (2-11); Neutrophils Absolute Auto 4.3 x10*3/uL (2.0-8.3); Neutrophils Percent Auto 53.9 % (45-73); Platelet Count 275 X10*3/uL (160-400); Red Blood Count 5.35 X10*6/uL (4.60-5.80); Red Cell Distribution Width 12.2 % (11.0-16.0)
[2024-06-04 11:50] LABS: Alanine Aminotransferase 19 U/L (0-40); Albumin Level 3.9 g/dL (3.5-5.0); Alkaline Phosphatase 63 U/L (39-117); Anion Gap 15 (12-20); Aspartate Amino Transferase 20 U/L (5-37); Bilirubin Total 0.6 mg/dL (0.0-1.0); Blood Urea Nitrogen 10 mg/dL (9-16); Calcium 9.7 mg/dL (8.4-10.2); Carbon Dioxide 22 mmol/L (22-29); Chloride 105 mmol/L (96-108); Creatinine Clr Calc Pharmacy 195.4; Estimated Glomerular Filt Rate > 60; Glucose Random 94 mg/dL (60-115); Potassium 3.8 mmol/L (3.3-5.1); Sodium 138 mmol/L (135-145); Total Protein 7.1 g/dL (6.5-8.0)
[2024-06-04 11:59] LABS: Troponin-I High Sensitivity < 2.7 ng/L (<3.5-35.0)
--- NOTE | 2024-06-04 12:01 | ED_ITS ---
HPI - General Adult General Chief complaint: General Medical Stated complaint: Sweating Time Seen by Provider: 06/04/24 11:54 Source: patient Limitations: no limitations History of Present Illness HPI narrative: THIS IS A 33 YEARS OLD MALE PRESENTED TO EMERGENCY DEPARTMENT SOME BREATH, HE DOES HAVE HISTORY OF ASTHMA, AND HE RAN OUT OF ALBUTEROL. HE DENIES ANY FEVER OR CHILLS VOMITING SYMPTOMS HAVE BEEN ONGOING FOR ABOUT 3 DAYS Onset (ago): day(s) (3) Radiation: non-radiation Severity: moderate Relieving factors: none Exacerbating factors: none Associated symptoms: denies other symptoms Related Data Previous Rx's ?Medication ?Instructions ?Recorded omeprazole 20 mg capsule,delayed 20 mg PO DAILY #30 caps 08/05/21 release hydrochlorothiazide 25 mg tablet 25 mg PO DAILY #30 tabs 09/11/21 ondansetron 4 mg disintegrating 4 mg PO Q8H PRN nausea and 09/23/21 tablet vomiting #7 tabs cephalexin 500 mg capsule 500 mg PO Q6H 7 days #28 caps 10/10/21 hydrochlorothiazide 25 mg tablet 25 mg PO DAILY 1 month #30 tabs 10/10/21 cyclobenzaprine 10 mg tablet 10 mg PO Q8H #14 tabs 08/26/22 ondansetron HCl 4 mg tablet 4 mg PO Q8H #14 tabs 08/26/22 fluticasone propionate 50 2 spray intranasal DAILY #16 grams 01/04/23 mcg/actuation nasal spray,suspension (Flonase Allergy Relief) lidocaine 4 % topical patch 1 patch topical TID PRN pain #10 ea 08/05/23 cefuroxime axetil 250 mg tablet 500 mg (2 x 250 mg) PO BID 7 days 09/27/23 #28 tabs albuterol sulfate 90 mcg/actuation 2 inh inhalation Q6H PRN shortness 06/04/24 breath activated powder inhaler of breath or wheezing #1 ea prednisone 20 mg tablet 60 mg (3 x 20 mg) PO DAILY #12 tabs 06/04/24 Allergies Allergy/AdvReac Type Severity Reaction Status Date / Time bee pollen [BEE STINGS] Allergy Unknown SWELLING Verified 06/04/24 10:56 acetaminophen Allergy Swelling Verified 01/04/23 19:23 ibuprofen Allergy Swelling Verified 01/04/23 19:23 seafood Allergy Itching Verified 01/04/23 19:23 Review of Systems 2 Constitutional: Constitutional: Reports no additional constitutional complaints Cardiovascular: Cardiovascular: Reports no additional cardiovascular complaints and Reports dyspnea Respiratory: Respiratory: Reports dyspnea [facility] Past Medical History Attestation statement: The following information was validated with the patient. [facility] Narrative: ASTHMA Medical History TBI (traumatic brain injury) HTN (hypertension) Social History Social History Alcohol intake: never Patient Tobacco Use Status: Never used Tobacco Smoked in Last 30 Days: No Use of substances other than those prescribed or required for medical reasons: Yes Substance Use Type: Marijuana Substance Use Frequency: Daily Advance Directives: No Advance Directives Information Provided: Yes Do you have a plan to hurt others: No Plan Physical Exam ED Vital Signs: Vital Signs - 24 hr 06/04/24 10:51 06/04/24 11:33 06/04/24 12:19 Temperature 97.1 F 98.0 F Pulse Rate 94 80 70 Respiratory Rate 18 18 18 Blood Pressure 137/93 H 125/81 Pulse Oximetry 97 97 Oxygen Delivery Method Room Air Room Air BMI result Body Mass Index 40.1 Const General: cooperative Nutritional Appearance: well nourished Orientation/consciousness: patient oriented x3 HENKY Head: Yes normal to inspection Neck Neck: Yes normal visual inspection Chest Chest palpation & inspection: normal inspection of the chest Resp Effort & Inspection: Actively coughing Auscultation: rhonchi and wheezes Cardio Jugular venous distension: no JVD Rate: regular rate Rhythm: regular rhythm GI Inspection: Yes normal to inspection Palpation (GI): Soft to palpation, not firm and nontender Skin General skin exam: no rashes or lesions noted Neuro General: patient oriented x3 Course Reevaluation(s) Reevaluation #1: On re-examination the patient is doing much better lungs are now clear, workup is essentially negative including a chest x-ray labs at this point we will discharge the patient home Time: 15:22 Medications Administered Discontinued Medications Generic Name Dose Route Start Last Admin Trade Name Freq PRN Reason Stop Dose Admin Albuterol Sulfate 2.5 mg/ 0 mg 06/04/24 12:16 06/04/24 12:18 Albuterol/Ipratropium 3 ml INHALE 06/04/24 12:17 1 dose ONCE ONE Administration Medical Decision Making Medical Decision Making [facility] Narrative: PATIENT PRESENTED WITH SHORTNESS OF BREATH WE WILL GET CHEST X-RAY BASELINE LABS Differential Diagnosis Differential Diagnoses: The differential diagnosis associated with the presentation includes ASTHMA EXACERBATION/PNEUMONIA/CHF Admission/Observation Consideration of admission/observation: Escalation of care including admission/observation considered Lab Data [facility] Lab Attestation statement: I reviewed the patient's lab results. 06/04/24 11:29 06/04/24 11:29 Labs: Lab Results 06/04/24 Range/Units 11:29 WBC 8.0 (4.8-10.8) X10*3/uL RBC 5.35 (4.60-5.80) X10*6/uL Hgb 16.4 (14.0-18.0) g/dl Hct 46.3 (42.0-52.0) % MCV 86.5 (80.0-98.0) fL MCH 30.7 (27.0-33.0) pg MCHC 35.4 (31.0-36.0) g/dl RDW 12.2 (11.0-16.0) % Plt Count 275 (160-400) X10*3/uL MPV 9.5 (9.4-12.4) fL Immature Gran % (Auto) 0.6 H (0.0-0.4) % Neut % (Auto) 53.9 (45-73) % Lymph % (Auto) 32.3 (20-40) % [facility] % (Auto) 9.5 (2-11) % Eos % (Auto) 2.9 (0-4) % Baso % (Auto) 0.8 (0-2) % Lymph # (Auto) 2.6 (1.2-4.9) X10*3/uL [facility] # (Auto) 0.8 (0.1-1.2) X10*3/uL Eos # (Auto) 0.2 (0.0-0.4) X10*3/uL Baso # (Auto) 0.1 (0.0-0.2) X10*3/uL Abs Immat Gran (auto) 0.05 H (0.00-0.03) X10*3/uL Absolute Neuts (auto) 4.3 (2.0-8.3) x10*3/uL Absolute Nucleated RBC 0.000 (0.0-0.012) X10*3/uL Nucleated RBC % (auto) 0.0 (0.0-0.2) /100WBC Sodium 138 (135-145) mmol/L Potassium 3.8 (3.3-5.1) mmol/L Chloride 105 (96-108) mmol/L Carbon Dioxide 22 (22-29) mmol/L Anion Gap 15 (12-20) BUN 10 (9-16) mg/dL Creatinine 0.74 (0.5-1.4) mg/dL Estim Creat Clear Calc 195.4 Estimated GFR > 60 Random Glucose 94 (60-115) mg/dL Calcium 9.7 (8.4-10.2) mg/dL Total Bilirubin 0.6 (0.0-1.0) mg/dL AST 20 (5-37) U/L ALT 19 (0-40) U/L Alkaline Phosphatase 63 (39-117) U/L Troponin I High Sens < 2.7 (<3.5-35.0) ng/L Total Protein 7.1 (6.5-8.0) g/dL Albumin 3.9 (3.5-5.0) g/dL Independent Interpretation I performed an independent interpretation of an: Plain X-Ray Interpretation: NAD Radiology Impression Discussion of test interpretation with radiology: I have reviewed the radiologist's reading. Chronic Conditions Patient?s care impacted by: Other (asthma) Critical Care Time Critical Care Time Critical Care Time: Yes Total Critical Care Time: 60 Attestation: multiple nebs back to back Discharge Plan Discharge Clinical Impression: Asthma exacerbation Qualifiers: Asthma severity: moderate Asthma persistence: unspecified Qualified Code(s): J 45.901 - Unspecified asthma with (acute) exacerbation Patient Disposition: Home, Self-Care Instructions: Asthma (DC) Prescriptions: New albuterol sulfate 90 mcg/actuation aerosol powdr breath activated 2 inh inhalation Q6H PRN (Reason: shortness of breath or wheezing) Qty: 1 0RF prednisone 20 mg tablet 60 mg PO DAILY Qty: 12 0RF No Action omeprazole 20 mg capsule,delayed release(DR/EC) 20 mg PO DAILY Qty: 30 0RF ondansetron 4 mg tablet,disintegrating 4 mg PO Q8H PRN (Reason: nausea and vomiting) Qty: 7 0RF hydrochlorothiazide 25 mg tablet 25 mg PO DAILY 30 Days Qty: 30 0RF cephalexin 500 mg capsule 500 mg PO Q6H 7 Days Qty: 28 0RF cyclobenzaprine 10 mg tablet 10 mg PO Q8H Qty: 14 0RF ondansetron HCl 4 mg tablet 4 mg PO Q8H Qty: 14 0RF hydrochlorothiazide 25 mg tablet 25 mg PO DAILY Qty: 30 3RF fluticasone propionate [Flonase Allergy Relief] 50 mcg/actuation spray,suspension 2 spray intranasal DAILY Qty: 16 0RF Rx Instructions: administer into each nostril lidocaine 4 % adhesive patch,medicated 1 patch topical TID PRN (Reason: pain) Qty: 10 0RF cefuroxime axetil 250 mg tablet 500 mg PO BID 7 Days Qty: 28 0RF Referrals: [facility] [Primary Care Provider] - 2 days Print Language: Wolof
[2024-06-04] MEDS: Albuterol Sulfate 2.5 MG, Albuterol/Iprat 2.5/0.5MG 3 ML 3 ML INHALE (12:18)
[2024-06-04 12:19] VITALS: PULSE 70; RESP 18; O2SAT 97
[2024-06-04] MEDS: predniSONE 20 MG TABLET 60 MG PO (15:31)
[2024-06-04 15:39] VITALS: BP 139/97; PULSE 86; RESP 18; TEMP 36.6; O2SAT 95
== END 2024-06-04 15:39 | disposition home or self-care (01) ==
PROVIDERS: Emergency Provider Emergency Medicine
DX: J45.901 Unspecified asthma with (acute) exacerbation (principal); R07.89 Other chest pain; I49.8 Other specified cardiac arrhythmias; Z79.899 Other long term (current) drug therapy
CPT/HCPCS: 36415; 71045; 80053; 84484; 85025; 93005; 94640; 99284; 99285

== ENCOUNTER → 2024-06-04 11:03 | Outpatient (BNV) | payer MEDICAID, SELFPAY | PROVIDERS: Emergency Provider Emergency Medicine; Visit Provider Internal Medicine Cardiovascular Disease | DX: R07.9 Chest pain, unspecified (principal) | CPT/HCPCS: 93010 ==

== ENCOUNTER → 2024-06-04 11:59 | Outpatient (BNV) | payer MEDICAID, SELFPAY | PROVIDERS: Emergency Provider Emergency Medicine; Visit Provider Radiology Diagnostic Radiology | DX: R07.9 Chest pain, unspecified (principal) | CPT/HCPCS: 71045 ==

== ENCOUNTER 2024-09-11 15:16 | Emergency (ER) | payer MEDICAID, SELFPAY ==
--- NOTE | 2024-09-11 15:52 | ED_ITS ---
HPI - General Adult General Chief complaint: Anxiety Stated complaint: anxiety, HTN Time Seen by Provider: 09/11/24 15:52 History of Present Illness ED Provider: Grace CORTES narrative: The patient is a 34-year-old male comes to the emergency room because he was feeling very anxious. He has been to the dentist this morning. He has a broken tooth at his last rear right molar on his jaw. He says that after the dental appointment he went home and felt extremely anxious. He has been told that he had high blood pressure at the dental office. He was worried about that. He says that he has a history of a psychiatric hospitalization several years ago. He called an ambulance because he was feeling so anxious. Having arrived at the hospital he is now feeling somewhat better but not completely better. He would like to be evaluated. However he denies suicidal ideation or homicidal ideation. He denies having done anything to himself to harm himself. He denies ingestion cutting himself or anything else that might have harmed himself. Does not feel ill otherwise. No fever, sweats, chills. No cough or sputum. Related Data Home Medications ?Medication ?Instructions ?Recorded ?Confirmed No Known Home Meds 09/11/24 09/11/24 Allergies Allergy/AdvReac Type Severity Reaction Status Date / Time bee pollen [BEE STINGS] Allergy Unknown SWELLING Verified 09/11/24 16:07 acetaminophen Allergy Swelling Verified 09/11/24 16:07 ibuprofen Allergy Swelling Verified 09/11/24 16:07 seafood Allergy Itching Verified 09/11/24 16:07 Review of Systems 2 Review of Systems: Yes all other systems are reviewed and are negative [facility] Past Medical History Medical History TBI (traumatic brain injury) HTN (hypertension) Social History Social History Alcohol intake: never Patient Tobacco Use Status: Never used Tobacco Smoked in Last 30 Days: Yes Use of substances other than those prescribed or required for medical reasons: Yes Substance Use Type: Marijuana Substance Use Frequency: Occasionally Advance Directives: No Advance Directives Information Provided: No Physical Exam ED Vital Signs: Vital Signs - 24 hr 09/11/24 16:03 09/11/24 16:09 09/11/24 17:53 Temperature 98.1 F 97.4 F Pulse Rate 65 84 Respiratory Rate 18 18 14 Blood Pressure 145/93 H 148/88 H Pulse Oximetry 100 98 Oxygen Delivery Method Room Air Room Air BMI result Body Mass Index 34.9 Const Other: The patient is awake and alert. He has a very positive affect. He seems cheerful. HENMT Other: Symmetrical. Mucous membranes moist. His last right molar on the jaw is quite decayed. Eyes General: appearance normal, both eyes and all related structures Neck Neck: Yes full ROM and Yes no lymphadenopathy Resp Effort & Inspection: normal respiratory effort Auscultation: clear to auscultation bilaterally Cardio Rate: regular rate Rhythm: regular rhythm Heart sounds: S1 normal heart sound present and S2 normal heart sound present GI Other: Abdomen is soft and nontender Skin Other: Skin is dry and unremarkable Neuro Other: The patient is awake and alert. He is pleasant and cooperative. He has a normal mental status. Cranial nerves 2-12 are intact. He moves his extremities normally and appropriately. He has a steady gait. Extrem Other: No peripheral edema Medical Decision Making Medical Decision Making MDM Narrative: The patient was placed in the psychiatric area on arrival. He was pleasant cooperative but still feeling anxious. He does not seem acutely medically ill. Medical testing was unremarkable aside from a positive urine toxicology screen. The patient was observed for a period of time after which he felt much better. At no point was he is suicidal or homicidal. I thought he could be discharged without an evaluation by the care team. Lab Data 09/11/24 16:40 09/11/24 16:40 Labs: Lab Results 09/11/24 Range/Units 16:40 WBC 10.1 (4.8-10.8) X10*3/uL RBC 5.10 (4.60-5.80) X10*6/uL Hgb 15.7 (14.0-18.0) g/dl Hct 43.9 (42.0-52.0) % MCV 86.1 (80.0-98.0) fL MCH 30.8 (27.0-33.0) pg MCHC 35.8 (31.0-36.0) g/dl RDW 12.1 (11.0-16.0) % Plt Count 317 (160-400) X10*3/uL MPV 9.1 L (9.4-12.4) fL Immature Gran % (Auto) 0.5 H (0.0-0.4) % Neut % (Auto) 57.4 (45-73) % Lymph % (Auto) 29.3 (20-40) % [place] % (Auto) 9.4 (2-11) % Eos % (Auto) 2.9 (0-4) % Baso % (Auto) 0.5 (0-2) % Lymph # (Auto) 3.0 (1.2-4.9) X10*3/uL [place] # (Auto) 1.0 (0.1-1.2) X10*3/uL Eos # (Auto) 0.3 (0.0-0.4) X10*3/uL Baso # (Auto) 0.1 (0.0-0.2) X10*3/uL Abs Immat Gran (auto) 0.05 H (0.00-0.03) X10*3/uL Absolute Neuts (auto) 5.8 (2.0-8.3) x10*3/uL Absolute Nucleated RBC 0.000 (0.0-0.012) X10*3/uL Nucleated RBC % (auto) 0.0 (0.0-0.2) /100WBC Sodium 138 (135-145) mmol/L Potassium 4.1 (3.3-5.1) mmol/L Chloride 109 H (96-108) mmol/L Carbon Dioxide 20 L (22-29) mmol/L Anion Gap 13 (12-20) BUN 18 H (9-16) mg/dL Creatinine 0.75 (0.5-1.4) mg/dL Estim Creat Clear Calc 179.4 Estimated GFR > 60 Random Glucose 119 H (60-115) mg/dL Calcium 8.6 D (8.4-10.2) mg/dL Total Bilirubin 0.3 (0.0-1.0) mg/dL Direct Bilirubin 0.1 (0.0-0.5) mg/dL AST 19 (5-37) U/L ALT 28 (0-40) U/L Alkaline Phosphatase 69 (39-117) U/L Total Protein 7.6 (6.5-8.0) g/dL Albumin 3.8 (3.5-5.0) g/dL Urine Color Yellow Urine Appearance Clear Urine pH 6.0 (5.0-9.0) Ur Specific [place] 1.020 (1.005-1.025) Urine Protein Negative (Neg-Trace) mg/dL Urine Glucose (UA) Negative (Negative) mg/dL Urine Ketones Negative (Negative) mg/dL Urine Blood Negative (Negative) Urine Nitrite Negative (Negative) Ur Leukocyte Esterase Negative (Negative) Urine Opiates Screen Not Detected (Not Detect) Ur Buprenorphine Scrn Not Detected (Not Detect) ng/mL Ur Oxycodone Screen Not Detected (Not Detect) ng/mL Urine Methadone Screen Not Detected (Not Detect) ng/mL Urine Fentanyl Screen POSITIVE H (Not Detect) Ur Barbiturates Screen Not Detected (Not Detect) Ur Phencyclidine Scrn Not Detected (Not Detect) Ur Amphetamines Screen Not Detected (Not Detect) U Benzodiazepines Scrn Not Detected (Not Detect) Urine Cocaine Screen POSITIVE H (Not Detect) U Marijuana (THC) Screen POSITIVE H (Not Detect) Ethyl Alcohol < 10 mg/dL Discharge Plan Discharge Clinical Impression: Anxiety Patient Disposition: Home, Self-Care Additional Instructions: Please continue your efforts to get a primary care doctor at the [facility]. With regard to your tooth please follow up with your dentist. Please read the additional information below for additional steps you might be able to take with regard to your anxiety. You were seen in our Emergency Department today for treatment of a behavioral health issue. It is important after your visit that you follow up with either your behavioral health provider or a primary care doctor within 7 days.? If you have trouble finding a therapist you can reach out to [address] [phone] The National Suicide and Crisis Lifeline can be reached 7 days a week 24 hours a day.? Call 988 to speak with someone.? Return for any worsening symptoms or concerns such as thoughts of self harm or harm to others. Please call 911 if you feel your mental health is worsening.? Prescriptions: No Action No Known Home Meds Referrals: [facility] [Provider Group] (Needs a new PCP, hypertension) Interventions: ED Discharge Assessment Last Done: 09/11/24 17:53 Discharge Date/Time: 09/11/24 17:54 Print Language: Faroese
[2024-09-11 16:03] VITALS: BP 136/92; BP 145/93; PULSE 65; PULSE 86; RESP 18; TEMP 36.7; O2SAT 100; O2SAT 96; BMI 34.9
[2024-09-11 16:09] VITALS: RESP 18
--- OUTSIDE RECORDS SUMMARY | 2024-09-11 16:41 | XMS_ITS | Encounter Summary ---
Author Organization [employer] Address [address] [facility] [address] [place] [address] Care Team Providers Care District Adviser Name Role Phone Unavailable Primary Care Provider Unavailabl e Reason for Visit * Reason Onset Date Comments reschedule extraction appt 06/24/2024 Encounter Details Date Type Department Care Team (Late st Contact Info) Description 06/24/2024 Telephone [facility] ADULT DENTAL [address] [place] [address] Willie Collins DDS [address] [place] [address] reschedule extraction appt Social History Tobacco Use Types Packs/Day Years Used Date Smoking Tobacco: Never Passive Smoke Exposure: Never Smokeless Tobacco: Never Sex and Gender Information Value Date Recorded Sex Assigned at Male 05/30/2022 10:16 AM EDT Legal Sex Male 10:16 AM EDT Gender Identity Choose not to disclose 10:16 AM EDT Sexual Orientation Choose not to disclose 2021 10:16 AM EDT documented as of this encounter Miscellaneous Notes * Telephone Encounter - Luda Dbobs - 06/24/2024 9:17 AM EST Patient is looking to reschedule an appt for extraction with Dr. Dennis GRACE documented in this encounter Plan of Treatment Upcoming Encounters Date Type Department Care Team (Late st Contact Info) Description 10/11/2024 2:30 PM EDT Office Visit [facility] ADULT DENTAL [address] [place] [address] Roe Hussein DDS [address] [place] [address] documented as of this encounter Visit Diagnoses Not on filedocumented in this encounter
--- OUTSIDE RECORDS SUMMARY | 2024-09-11 16:41 | XMS_ITS | Encounter Summary ---
Author Organization [employer] Address [address] [facility] 7t [place] [address] Care Team Providers Care Database Management Specialist Name Role Phone Unavailable Primary Care Provider Unavailabl e Reason for Visit * Reason Comments Dental Pain Dental Exam B roken teeth ul ll Encounter Details Date Type Department Care Team (Late st Contact Info) Description 02/20/2024 11:30 AM EDT Office Visit [facility] ADULT DENTAL [address] [place] [address] Damian Rios DMD [address] [place] [address] Social History Tobacco Use Types Packs/Day Years [...] AM EDT documented as of this encounter Progress Notes * Damian Rios DMD - 02/20/2024 11:30 AM EDT C/C: toothache at UL and LL molars for few days I.O.E: sensitive to percussion of #15,19, severe carious teeth #15,19 E.O.E: wnl Radiographic: root remnants #15, severe carious teeth #15,19 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 Meds: Amoxill. 500mg x 21 tabs Motrin 800mg x 15 tabs Peridex x 1 bottle Yordan documented in this encounter Plan of Treatment Upcoming Encounters Date Type Department Care Team (Late st Contact Info) Description 10/11/2024 2:30 PM EDT Office Visit [facility] ADULT DENTAL [address] [place] [address] Marci Husseindraleida CALVINS [address] [place] [address] Scheduled Orders Name Type Priority Associated Diagnoses Orde r Schedule COMPREHENSIVE ORAL EVALUATION - NEW OR ESTABLISHED PATIENT Dental Routine 1 Occurrence s starting 02/20/2024 PROPHYLAXIS - ADULT Dental Routine 1 Occ urrences starting 02/20/2024 15 15 EXTRACTION, ERUPTED TOOTH OR EXPOSED ROOT (ELEVATION AND/OR FORCEPS REMOVAL) Dental Routine [address] arting 08/23/2024 19 19 EXTRACTION, ERUPTED TOOTH OR EXPOSED ROOT (ELEVATION AND/OR FORCEPS REMOVAL) Dental Routine [address] arting 08/23/2024 documented as of this encounter Procedures Procedure Name Priority Date/Time Associated Diagnosis Comments ADJUNCTIVE GENERAL SERVICES - UNCLASSIFIED TREATMENT - PALLIATIVE TREATMENT OF DENTAL PAIN - PER VISIT Routine 02/20/2024 11:30 AM EDT INTRAORAL - PERIAPICAL FIRST RADIOGRAPHIC IMAGE Routine 02/20/2024 11:30 AM EDT INTRAORAL - PERIAPICAL EACH ADDITIONAL RADIOGRAPHIC IMAGE Routine 02/20/2024 11:30 AM EDT ADJUNCTIVE GENERAL SERVICES - PROFESSIONAL VISITS - CASE PRESENTATION, SUBSEQUENT TO DETAILED AND EXTENSIVE TREATMENT PLANNING Routine 02/20/2024 11:30 AM EDT BITEWING - SINGLE RADIOGRAPHIC IMAGE Routine 02/20/2024 11:30 AM EDT documented in this encounter Visit Diagnoses Not on filedocumented in this encounter
--- OUTSIDE RECORDS SUMMARY | 2024-09-11 16:41 | XMS_ITS | Clinical Summary ---
Author Organization [employer] Address [address] [place] [address] [address] [place] [address] Care Team Providers Care Manager Shell Name Role Phone Unavailable Primary Care Provider Unavailabl e Allergies Active Allergy Reactions Criticality Noted Date Comments Acetaminophen Swelling 12/18/2023 Bee Venom Swelling 12/18/2023 Shellfish Allergy Itching 12/18/2023 Medications loratadine (Claritin) 5 mg split tablet Take 1 tablet by mouth at bed time. 10/03/2012 Active Blood Pressure Monitoring (BP Monitor-Stethosco pe) kitIndications:Pr imary hypertension To check the BP daily. Keep the log for your next visit. 1 kit 12/18/2023 Active amoxicillin-clavu lanate (Augmentin) 875-125 MG tablet Take 1 tablet by mouth 2 times daily for 7 days. 14 tablet 09/10/2024 09/17/19 25 Active ibuprofen 600 MG tablet Take 1 tablet (600 mg) by mouth 3 times daily for 7 days. 21 tablet 09/10/2024 09/17/19 25 Active Active Problems Problem Noted Date Diagnosed Date Primary hypertension 12/18/2023 Allergic rhinitis 10/03/2012 Obesity 10/03/2012 Encounters Date Type Department Care Team Description 09/10/2024 2:30 PM EST Office Visit [facility] ADULT DENTAL [address] [place] [address] Roe Hussein DDS 06/24/2024 Telephone [facility] ADULT DENTAL [address] [place], [place] [phone] Willie Collins DDS reschedule extraction appt from Last 3 Months Social History Tobacco Use Types Packs/Day Years Used Date Smoking Tobacco: Never Passive Smoke Exposure: Never Smokeless Tobacco: Never Sex and Gender Information Value Date Recorded Sex Assigned at Male 05/30/2022 10:16 AM EDT Legal Sex Male 10:16 AM EDT Gender Identity Choose not to disclose 10:16 AM EDT Sexual Orientation Choose not to disclose 2021 10:16 AM EDT Last Filed Vital Signs Vital Sign Reading Time Taken Comments Blood Pressure 152/100 09/10/2024 2:53 PM EST Pulse 68 12/18/2023 9:54 AM EDT Temperature 37 ??C (98.6 ??F) 12/18/2023 9:54 AM EDT Respiratory Rate 19 12/18/2023 9:54 AM EDT Oxygen Saturation 99% 12/18/2023 9:54 AM EDT Inhaled Oxygen Concentration - - Weight 149 kg (327 lb 11.2 oz) 12/18/2023 9:54 A M EDT Height - - Body Mass Index - - Plan of Treatment Upcoming Encounters Date Type Department Care Team (Late st Contact Info) Description 10/11/2024 2:30 PM EDT Office Visit [facility] ADULT DENTAL [address] [place] [address] Roe Hussein DDS [address] [place] [address] Health Maintenance Due Date Last Done Comments Dental Oral Exam 1991 Dental Prophylaxis 1991 Dental X-Ray: Full Mouth 1991 Depression Screening 1991 HIV Screening 1991 Lipid Panel 1991 SDOH Screening 1991 Alcohol/Substance Use Screening 2003 Family Planning (PISQ) 2006 Hepatitis C Screening 2009 COVID-19 Vaccine ( season) 2024 06/16/2021, 05/26/2021 Influenza Vaccine (#1) 2024 10/03/2012 Tobacco Screening 02/19/2025 02/20/2024 Dental X-Ray: Bitewings 02/20/2025 02/20/2024 DTaP/Tdap/Td Vaccines (4 - Td or Tdap) 09/27/2033 09/27/2023, 08/04/2010, 03/26/2001 Zoster Vaccines (1 of 2) 2041 RSV Patients and Patients Aged 60 years or older (1 - 1-dose 75+ series) 2066 HIB Vaccines Completed 06/04/1992, 07/1991, 1991, Additional history exists Hepatitis B Vaccines Completed 03/31/1996, 02/28/1995, 01/28/1995 IPV Vaccines Completed 03/31/1996, 11/1992, 1991, Additional history exists Hepatitis A Vaccines Aged Out 08/04/2010 No long er eligible based on patient's age to complete this topic Meningococcal Vaccine Aged Out 08/04/2010 No simon pam eligible based on patient's age to complete this topic HPV Vaccines Aged Out No longer eligi ble based on patient's age to complete this topic Pneumococcal Vaccine: Pediatrics (0 to 5 Years) and At-Risk Patients (6 to 49) Years) Aged Out No longer eligible based on patient's age to complete this topic RSV under 20 months Aged Out No longe r eligible based on patient's age to complete this topic Rotavirus Vaccines Aged Out No longer eligible based on patient's age to complete this topic Procedures Procedure Name Priority Date/Time Associated Diagnosis Comments BITEWING - SINGLE RADIOGRAPHIC IMAGE Routine 02/20/2024 11:30 AM EDT from Last 3 Months or Most Recently Relevant to Health Maintenance Insurance [facility] C3 DENTAL-[facility] MEDICAID STAND ADULT
--- OUTSIDE RECORDS SUMMARY | 2024-09-11 16:41 | XMS_ITS | Encounter Summary ---
Author Organization [employer] Address [address] [facility] [address] [place] [address] Care Team Providers Care Motors And Controls Tester Name Role Phone Unavailable Primary Care Provider Unavailabl e Reason for Visit * Reason Comments Dental Pain LOWER RIGHT Encounter Details Date Type Department Care Team ([facility] Contact Info) Description 09/10/2024 2:30 PM EST Office Visit [facility] ADULT DENTAL [address] [place] [address] Keenan, Roe, DDS [address] [place] [address] Social History Tobacco Use Types Packs/Day Years [...] AM EDT documented as of this encounter Last Filed Vital Signs Vital Sign Reading Time Taken Comments Blood Pressure 152/100 09/10/2024 2:53 PM EST Pulse - - Temperature - - Respiratory Rate - - Oxygen Saturation - - Inhaled Oxygen Concentration - - Weight - - Height - - Body Mass Index - - documented in this encounter Plan of Treatment Upcoming Encounters Date Type Department Care Team (Late st Contact Info) Description 10/11/2024 2:30 PM EDT Office Visit [facility] ADULT DENTAL [address] [place] [address] Marci Husseindra, DDS [address] [place] [address] Scheduled Orders Name Type Priority Associated Diagnoses Orde r Schedule 32 32 EXTRACTION, ERUPTED TOOTH OR EXPOSED ROOT (ELEVATION AND/OR FORCEPS REMOVAL) Dental Routine 1 Occurrences s tarting 09/10/2024 documented as of this encounter Visit Diagnoses Not on filedocumented in this encounter
[2024-09-11 16:45] LABS: MANUAL DIFF FLAG NO
[2024-09-11 16:46] LABS: Basophils Absolute Auto 0.1 X10*3/uL (0.0-0.2); Basophils Percent Auto 0.5 % (0-2); Eosinophils Absolute Auto 0.3 X10*3/uL (0.0-0.4); Eosinophils Percent Auto 2.9 % (0-4); Hematocrit 43.9 % (42.0-52.0); Hemoglobin 15.7 g/dl (14.0-18.0); Imm Gran Abs Auto 0.05 X10*3/uL (0.00-0.03); Imm Gran Pct Auto 0.5 % (0.0-0.4); Lymphocytes Percent Auto 29.3 % (20-40); Mean Corpuscular HGB Conc 35.8 g/dl (31.0-36.0); Mean Corpuscular Hemoglobin 30.8 pg (27.0-33.0); Mean Corpuscular Volume 86.1 fL (80.0-98.0); Mean Platelet Volume 9.1 fL (9.4-12.4); Monocytes Percent Auto 9.4 % (2-11); Neutrophils Absolute Auto 5.8 x10*3/uL (2.0-8.3); Neutrophils Percent Auto 57.4 % (45-73); Platelet Count 317 X10*3/uL (160-400); Red Cell Distribution Width 12.1 % (11.0-16.0); White Blood Count 10.1 X10*3/uL (4.8-10.8)
[2024-09-11 16:49] LABS: Appearance Urine Clear; Color Urine Yellow; Glucose Urine UA Negative (Negative); Leukocyte Esterase Urine Negative (Negative); Nitrite Urine Negative (Negative); Urine Blood Negative (Negative); Urine Ketones Negative (Negative); Urine Protein Negative (Neg-Trace)
[2024-09-11 16:58] LABS: Amphetamine Screen Urine Not Detected (Not Detect); Barbiturates, Urine Not Detected (Not Detect); Benzodiazepines Screen Urine Not Detected (Not Detect); Buprenorphine Scr Not Detected (Not Detect); Cannabinoid Screen Urine POSITIVE (Not Detect); Cocaine Screen Urine POSITIVE (Not Detect); Fentanyl, urine POSITIVE (Not Detect); Methadone Screen, Urine Not Detected (Not Detect); Opiate Screen Urine Not Detected (Not Detect); Oxycodone Screen Urine Not Detected (Not Detect); Phencyclidine Screen Urine Not Detected (Not Detect)
[2024-09-11 17:04] LABS: Alanine Aminotransferase 28 U/L (0-40); Albumin Level 3.8 g/dL (3.5-5.0); Alkaline Phosphatase 69 U/L (39-117); Anion Gap 13 (12-20); Aspartate Amino Transferase 19 U/L (5-37); Bilirubin Direct 0.1 mg/dL (0.0-0.5); Bilirubin Total 0.3 mg/dL (0.0-1.0); Blood Urea Nitrogen 18 mg/dL (9-16); Calcium 8.6 mg/dL (8.4-10.2); Carbon Dioxide 20 mmol/L (22-29); Chloride 109 mmol/L (96-108); Creatinine Clr Calc Pharmacy 179.4; Estimated Glomerular Filt Rate > 60; Ethanol < 10 mg/dL; Glucose Random 119 mg/dL (60-115); Potassium 4.1 mmol/L (3.3-5.1); Sodium 138 mmol/L (135-145); Total Protein 7.6 g/dL (6.5-8.0)
[2024-09-11 17:53] VITALS: BP 148/88; PULSE 84; RESP 14; TEMP 36.3; O2SAT 98
== END 2024-09-11 17:54 | disposition home or self-care (01) ==
PROVIDERS: Emergency Provider Emergency Medicine
DX: F41.1 Generalized anxiety disorder (principal); I10 Essential (primary) hypertension; Z51.81 Encounter for therapeutic drug level monitoring; Z79.899 Other long term (current) drug therapy
CPT/HCPCS: 36415; 80048; 80076; 80307; 81003; 85025; 99284

== ENCOUNTER 2024-10-30 10:45 | Emergency (ER) | payer MEDICAID, SELFPAY ==
[2024-10-30 10:50] VITALS: BP 150/100; PULSE 84; O2SAT 97
[2024-10-30 11:26] VITALS: BP 142/100; PULSE 88; RESP 18; TEMP 36.9; O2SAT 97; BMI 36.3
--- NOTE | 2024-10-30 11:28 | ED_ITS ---
HPI - Psych General Chief Complaint: Anxiety Stated Complaint: ANXIETY,TINGLING HANDS/FEET PER EMS Related Data Home Medications ?Medication ?Instructions ?Recorded ?Confirmed No Known Home Meds 09/11/24 09/11/24 Allergies Allergy/AdvReac Type Severity Reaction Status Date / Time bee pollen [BEE STINGS] Allergy Unknown SWELLING Verified 10/30/24 11:28 acetaminophen Allergy Swelling Verified 10/30/24 11:28 ibuprofen Allergy Swelling Verified 10/30/24 11:28 seafood Allergy Itching Verified 10/30/24 11:28 PMFSH Past Medical History Medical History TBI (traumatic brain injury) HTN (hypertension) Social History Social History Alcohol intake: never Patient Tobacco Use Status: Never used Tobacco Substance Use Type: Marijuana Advance Directives: No Advance Directives Information Provided: No Physical Exam Vital Signs: Vital Signs: Last Vital Signs Temp 98.4 F 10/30/24 11:26 Pulse 88 10/30/24 11:26 Resp 18 10/30/24 11:26 BP 142/100 H 10/30/24 11:26 Pulse Ox 97 10/30/24 11:26 O2 Del Method Room Air 10/30/24 11:26 BMI result Body Mass Index 36.3 Course Course Course Narrative: This is an RME: Additional HPI, ROS, PE not included below will be deferred to primary provider. RME assessment and note performed by: Amalia Calzada PA-C This is a 52-bxej-oud-Frisian-speaking male who presents to the ER with complaints of anxiety. Patient reports that he has court today and has had a panic attack and high blood pressure. He was also endorsing whole-body pain. He states that he has a history of anxiety, and he is not on any medications. He denies any SI or HI. He wants help with the anxiety as well as drug use. He feels chest tightness with panic attacks. Last use was yesterday. He denies any IVDA, states that he smokes these drugs. Wants to talk to addiction Medicine as well Plan: Labs, UA, EKG, further ER evaluation needed. Reevaluation(s) Reevaluation #1: Patient left without completing treatment. Discharge Plan Discharge Clinical Impression: Acute anxiety Patient Disposition: Left W/O Completing Treatment Prescriptions: No Action No Known Home Meds Discharge Date/Time: 10/30/24 13:45
--- NOTE | 2024-10-30 11:29 | ECG_ITS ---
Test Reason : CHEST PAIN Blood Pressure : */* mmHG Vent. Rate : 82 BPM Atrial Rate : 82 BPM P-R Int : 124 ms QRS Dur : 104 ms QT Int : 412 ms P-R-T Axes : 40 -8 29 degrees QTcB Int : 481 ms Normal sinus rhythm Prolonged QT Abnormal ECG When compared with ECG of 04-Jun-2024 11:03, No significant change was found Referred By: Amalia Calzada Electronically Signed By: MICHAEL PRUITT
--- OUTSIDE RECORDS SUMMARY | 2024-10-30 16:28 | XMS_ITS | Encounter Summary ---
Author Organization [employer] Address [address] [facility] 7t [place] [address] Care Team Providers Care Formula Room Worker Name Role Phone Unavailable Primary Care Provider Unavailabl e Reason for Visit * Reason Onset Date Comments reschedule extraction appt 06/24/2024 Encounter Details Date Type Department Care Team (Late st Contact Info) Description 06/24/2024 Telephone [facility] ADULT DENTAL [address] [place] [address] Willie Collins DDS [address] [place] [address] reschedule extraction appt Social History Tobacco Use [...] Miscellaneous Notes * Telephone Encounter - Luda Dobbs - 06/24/2024 9:17 AM EST Patient is looking to reschedule an appt for extraction with Dr. Dennis GRACE documented in this encounter Plan of Treatment Not on file documented as of this encounter Visit Diagnoses Not on filedocumented in this encounter
--- OUTSIDE RECORDS SUMMARY | 2024-10-30 16:28 | XMS_ITS | Clinical Summary ---
Author Organization [employer] [facility] Address [address] [facility] [address] [place] [address] Care Team Providers Care Air Conditioner Installer Helper Name Role Phone Unavailable Primary Care Provider [...] your next visit. 1 kit 12/18/2023 Active Active Problems Problem Noted Date Diagnosed Date Primary hypertension 12/18/2023 Allergic rhinitis 10/03/2012 Obesity 10/03/2012 Encounters Date Type Department Care Team Description 10/11/2024 Population Health Risk Score [facility] (C[facility]) Department [address] [place] [address] [phone] Provider, Population Health Generic 09/10/2024 2:30 PM EST Office Visit [facility] ADULT DENTAL [address] [place] [address] Roe Hussein DDS from Last 3 Months Social History Tobacco [...] Mass Index - - Plan of Treatment Health Maintenance Due Date Last Done Comments [...] Procedure Name Priority Date/Time Associated Diagnosis Comments CASE PRESENTATION, DETAILED AND EXTENSIVE TREATMENT PLANNING Routine 09/10/2024 2:30 PM EST INTRAORAL - PERIAPICAL FIRST RADIOGRAPHIC IMAGE Routine 09/10/2024 2:30 PM EST PALLIATIVE (EMERGENCY) TREATMENT OF DENTAL PAIN - MINOR PROCEDURE Routine 09/10/2024 2:30 PM EST BITEWING - SINGLE RADIOGRAPHIC IMAGE Routine 02/20/2024 11:30 AM EDT from Last 3 Months or Most Recently Relevant to Health Maintenance Insurance C3 DENTAL-[facility] MEDICAID STAND ADULT
== END 2024-10-30 13:45 | disposition left against medical advice (07) ==
PROVIDERS: Emergency Provider Emergency Medicine
DX: R07.89 Other chest pain (principal); F41.9 Anxiety disorder, unspecified; R94.31 Abnormal electrocardiogram [ECG] [EKG]; F41.0 Panic disorder [episodic paroxysmal anxiety]
CPT/HCPCS: 93005; 99283

== ENCOUNTER → 2024-10-30 11:29 | Outpatient (BNV) | payer MEDICAID, SELFPAY | PROVIDERS: Emergency Provider Emergency Medicine; Visit Provider Internal Medicine | DX: R94.31 Abnormal electrocardiogram [ECG] [EKG] (principal); R07.9 Chest pain, unspecified | CPT/HCPCS: 93010 ==

== ENCOUNTER 2024-11-05 08:00 | Emergency (ER) | payer MEDICAID, SELFPAY ==
--- NOTE | 2024-11-05 08:04 | ECG_ITS ---
Test Reason : CP Blood Pressure : */* mmHG Vent. Rate : 62 BPM Atrial Rate : 62 BPM P-R Int : 124 ms QRS Dur : 104 ms QT Int : 426 ms P-R-T Axes : 43 -19 26 degrees QTcB Int : 432 ms Normal sinus rhythm with sinus arrhythmia Normal ECG When compared with ECG of 30-Oct-2024 12:22, No significant change was found Referred By: Reina Live Electronically Signed By: Quintin Paris
[2024-11-05 08:07] VITALS: BP 127/84; PULSE 88; O2SAT 100
--- NOTE | 2024-11-05 08:09 | ED.GENADULT ---
HPI - General Adult General Chief complaint: Chest Pain Stated complaint: SUDDEN CP,IN [employer] CUSTODY PER EMS Time Seen by Provider: 11/05/24 08:04 Source: patient, EMS and police Mode of arrival: EMS Limitations: no limitations History of Present Illness ED Provider: Mindi Live PA-C HPI narrative: 34 yo male with history of polysubstance abuse presents to the ER for evaluation of diffuse body pain that started about an hour ago when he was in police custody. He states he last used crack cocaine and heroin before he was arrested last night. He states he feels diffuse aches and pains in his muscles and joints, he has a headache, chest pain, and abdominal pain. He is nauseated but has not had any vomiting or diarrhea. He reports chills and goosebumps. He is restless. He reports pain across his whole chest, worse with movement and deep breaths. No SOB or coughing. No fevers. MD complaint: diffuse body pain Onset (ago): hour(s) Severity: severe Quality: aching Pain Consistency: constant Relieving factors: none Exacerbating factors: none Associated symptoms: denies other symptoms Treatments prior to arrival: none Related Data Previous Rx's ?Medication ?Instructions ?Recorded cephalexin 500 mg capsule 500 mg PO Q6H 7 days #28 caps 11/05/24 Allergies Allergy/AdvReac Type Severity Reaction Status Date / Time bee pollen [BEE STINGS] Allergy Unknown SWELLING Verified 11/05/24 08:14 acetaminophen Allergy Swelling Verified 11/05/24 08:14 ibuprofen Allergy Swelling Verified 11/05/24 08:14 seafood Allergy Itching Verified 11/05/24 08:14 Review of Systems Review of Systems: Yes all other systems are reviewed and are negative PMFSH Past Medical History Medical History TBI (traumatic brain injury) HTN (hypertension) Social History Social History Alcohol intake: never Patient Tobacco Use Status: Never used Tobacco Substance Use Type: Marijuana Advance Directives: No Advance Directives Information Provided: Yes Physical Exam ED Vital Signs: Vital Signs - 24 hr 11/05/24 08:12 11/05/24 09:17 11/05/24 10:00 Temperature 98.7 F 98.6 F Pulse Rate 80 68 75 Respiratory Rate 16 22 H 16 Blood Pressure 149/104 H 158/97 H Pulse Oximetry 98 99 97 Oxygen Delivery Method Room Air Room Air Room Air 11/05/24 10:38 Temperature 98.6 F Pulse Rate 75 Respiratory Rate 16 Blood Pressure 158/97 H Pulse Oximetry 97 Oxygen Delivery Method BMI result Body Mass Index 36.2 Appearance: Alert. Oriented X3. Restless, uncomfortable. foul smelling, unkempt Head: normocephalic, atraumatic. Eyes: Pupils equal, round and reactive to light. ENT: Pharynx normal. No tonsillar swelling or exudate. Neck: Normal inspection. Neck supple. CVS: Normal heart rate and rhythm. Pulses normal. Tender chest wall throughout. Respiratory: No respiratory distress. Breath sounds normal. Abdomen: Soft and nontender. +BS x4 Skin: Skin warm and dry. Normal skin color. Normal skin turgor. No rashes. Extremities: No lower extremity edema. No joint swelling. left anterior foot with scattered areas of erythema and warmth, small open superficial abrasions on the top of foot. no joint swelling. FROM of the toes and ankle. no calf tenderness. no track lawson Neuro/psych: Oriented X 3. No motor deficit. No sensory deficit. CN II-XII intact. Normal speech and cognition. Medications Administered Discontinued Medications Generic Name Dose Route Start Last Admin Trade Name Cecilioq PRN Reason Stop Dose Admin Methadone HCl 40 mg 11/05/24 09:05 11/05/24 09:17 Methadone Hcl 20 Mg/2 Ml Oral.Conc PO 11/05/24 09:06 40 mg ONCE ONE Administration Procedures Laceration Laceration 1: Site: hand Side (If applicable): left Description: flap and irregular Depth: simple, single layer Local Anesthetic: lidocaine 1% Amount of anesthesia used (mL): 5 Pre-repair: wound explored, irrigated extensively and deep structures intact Skin layer closed with: nylon Size (cm): 5-0 Number of sutures: 8 Technique: simple, interrupted Nerve Block Nerve Block 1: Time out performed: No Local Anesthetic: lidocaine 1% Amount of anesthesia used (mL): 6 Side: left Nerve Blocks: digital Procedure Successful: Yes Patient Tolerated Procedure: well and no complications Complications: none Medical Decision Making Medical Decision Making MDM Narrative: 34 yo male with history of polysubstance abuse presenting with diffuse body pain after being arrested last night. last used drugs last night. c/o chills, diffuse body pain, goosebumps, nausea, upset stomach and chest pains. CP description is nonspecific with diffuse tenderness on exam. no signs of trauma EKG without ischemic changes. suspect opiate withdrawal. given 40 mg methadone with improvement in his symptoms. lab workup is unremarkable and reassuring he feels better his left foot has evidence of early cellulitis changes. will start empiric abx. no evidence of abscess stable for d/c into police custody. he is interested in opiate detox. references provided Differential Diagnosis Differential Diagnoses: The differential diagnosis associated with the presentation includes opiate withdrawal, covid, viral syndrome, low suspicion for ACS or PE, cellulitis Lab Data MDM Lab Attestation statement: I reviewed the patient's lab results. negative troponin, no leukocytosis 11/05/24 08:40 11/05/24 08:40 Labs: Lab Results 11/05/24 Range/Units 08:40 WBC 8.4 (4.8-10.8) X10*3/uL RBC 5.31 (4.60-5.80) X10*6/uL Hgb 15.9 (14.0-18.0) g/dl Hct 46.6 (42.0-52.0) % MCV 87.8 (80.0-98.0) fL MCH 29.9 (27.0-33.0) pg MCHC 34.1 (31.0-36.0) g/dl RDW 12.0 (11.0-16.0) % Plt Count 305 (160-400) X10*3/uL MPV 9.5 (9.4-12.4) fL Immature Gran % (Auto) 0.2 (0.0-0.4) % Neut % (Auto) 69.9 (45-73) % Lymph % (Auto) 17.6 L (20-40) % Kings % (Auto) 9.3 (2-11) % Eos % (Auto) 2.5 (0-4) % Baso % (Auto) 0.5 (0-2) % Lymph # (Auto) 1.5 (1.2-4.9) X10*3/uL Kings # (Auto) 0.8 (0.1-1.2) X10*3/uL Eos # (Auto) 0.2 (0.0-0.4) X10*3/uL Baso # (Auto) 0.0 (0.0-0.2) X10*3/uL Abs Immat Gran (auto) 0.02 (0.00-0.03) X10*3/uL Absolute Neuts (auto) 5.9 (2.0-8.3) x10*3/uL Absolute Nucleated RBC 0.000 (0.0-0.012) X10*3/uL Nucleated RBC % (auto) 0.0 (0.0-0.2) /100WBC Sodium 140 (135-145) mmol/L Potassium 3.8 (3.3-5.1) mmol/L Chloride 108 (96-108) mmol/L Carbon Dioxide 25 (22-29) mmol/L Anion Gap 11 L (12-20) BUN 8 L (9-16) mg/dL Creatinine 0.68 (0.5-1.4) mg/dL Estim Creat Clear Calc 201.8 Estimated GFR > 60 Random Glucose 78 (60-115) mg/dL Calcium 9.4 D (8.4-10.2) mg/dL Magnesium 2.2 (1.6-2.6) mg/dL Total Bilirubin 0.6 (0.0-1.0) mg/dL Direct Bilirubin 0.2 (0.0-0.5) mg/dL AST 37 (5-37) U/L ALT 30 (0-40) U/L Alkaline Phosphatase 67 (39-117) U/L Troponin I High Sens 4.4 D (<3.5-35.0) ng/L B-Natriuretic Peptide < 10 (<100) pg/mL Total Protein 7.3 (6.5-8.0) g/dL Albumin 3.7 (3.5-5.0) g/dL Influenza Type A (PCR) NEGATIVE (Negative) Influenza Type B (PCR) NEGATIVE (Negative) RSV RNA Qual (PCR) NEGATIVE (Negative) SARS-CoV-2 RNA (RT-PCR) NEGATIVE (Negative) Independent Interpretation I performed an independent interpretation of an: EKG Interpretation: ekg with sinus rhythm w/ sinus arrythmia, hr 62 bpm, no st segment elevations or depressions Independent Historian Clinical information obtained from an independent historian. History obtained from or confirmed by: EMS and Other (police) External Record Review External record reviewed: Prior outpatient labs Tests considered The following testing was considered but not selected: considered cxr, low suspicion for acute cardiopulmonary process Prescription Management I considered prescription management with: Pain Medication Chronic Conditions Patient?s care impacted by: Other (polysubstance use disorder) Social Determinants Patient?s care significantly limited by Social Determinants of Health including: Inadequate housing, Alcoholism and drug addiction in family, Problems related to primary support group and Other Social Determinant of Health Critical Care Time Critical Care Time Critical Care Time: No Discharge Plan Discharge Clinical Impression: Opiate withdrawal Cellulitis Qualifiers: Site of cellulitis: extremity Site of cellulitis of extremity: lower extremity Laterality: left Qualified Code(s): L03.116 - Cellulitis of left lower limb Patient Disposition: Home, Self-Care Instructions: Cellulitis (DC), Opioid Withdrawal (ED), Opioid Use Disorder (ED) Additional Instructions: Opiate use disorder You were seen in our Emergency Department today for treatment of opiate use disorder. You may have been dosed with medication for opiate use disorder (MOUD) in the form of suboxone or methadone. You may experience feeling some withdrawal symptoms and this is normal. The? dose in the Emergency Department is a starting dose and meant to be titrated up once you follow up with a clinic. Please do not feel discouraged, it is a process. The nurse has reviewed with you where to follow up and what information to bring with you, to continue treatment. You also may have been given naloxone (narcan) to take home with you. This medication is used to potentially treat opiate overdose. If you decide you want to stop or cut down on how much you?re using, you can call or walk into our outpatient Addiction Treatment office: [facility] (M-F 9am-5p) [address], [address] [phone] You may have been provided with safer injection?items, please take time to take care of YOU and your health. Use new supplies whenever possible to lessen the chances of infections and other illnesses.? ?If you need more supplies, please go [facility],? [address] [place] [address] OR you can call or text to coordinate delivery of safer supplies. Take the prescribed antibiotics as directed for a mild skin infection in your left foot, complete the entire course and do not miss any doses You were also provided a list of several treatment providers in the area.? If you experience any worsening symptoms you cannot control please return to the ED or call 911. Please follow up at your next appointment. Things to look out for are fevers, chest pain, shortness of breath, severe pain, dizziness, fainting or any other concerns. Prescriptions: New cephalexin 500 mg capsule 500 mg PO Q6H 7 Days Qty: 28 0RF Referrals: [facility] [Provider Group] Interventions: ED Discharge Assessment Last Done: 11/05/24 10:38 Discharge Date/Time: 11/05/24 10:44 Print Language: Indonesian
[2024-11-05 08:12] VITALS: BP 149/104; PULSE 80; RESP 16; TEMP 37.1; O2SAT 98; BMI 36.2
[2024-11-05 08:45] LABS: MANUAL DIFF FLAG NO
[2024-11-05 08:49] LABS: Basophils Percent Auto 0.5 % (0-2); Eosinophils Absolute Auto 0.2 X10*3/uL (0.0-0.4); Eosinophils Percent Auto 2.5 % (0-4); Hematocrit 46.6 % (42.0-52.0); Hemoglobin 15.9 g/dl (14.0-18.0); Imm Gran Abs Auto 0.02 X10*3/uL (0.00-0.03); Imm Gran Pct Auto 0.2 % (0.0-0.4); Lymphocytes Absolute Auto 1.5 X10*3/uL (1.2-4.9); Lymphocytes Percent Auto 17.6 % (20-40); Mean Corpuscular HGB Conc 34.1 g/dl (31.0-36.0); Mean Corpuscular Hemoglobin 29.9 pg (27.0-33.0); Mean Corpuscular Volume 87.8 fL (80.0-98.0); Mean Platelet Volume 9.5 fL (9.4-12.4); Monocytes Absolute Auto 0.8 X10*3/uL (0.1-1.2); Monocytes Percent Auto 9.3 % (2-11); Neutrophils Absolute Auto 5.9 x10*3/uL (2.0-8.3); Neutrophils Percent Auto 69.9 % (45-73); Platelet Count 305 X10*3/uL (160-400); Red Blood Count 5.31 X10*6/uL (4.60-5.80); White Blood Count 8.4 X10*3/uL (4.8-10.8)
[2024-11-05 09:06] LABS: B Type Natriuretic Peptide < 10 pg/mL (<100)
[2024-11-05 09:07] LABS: Alanine Aminotransferase 30 U/L (0-40); Albumin Level 3.7 g/dL (3.5-5.0); Alkaline Phosphatase 67 U/L (39-117); Anion Gap 11 (12-20); Aspartate Amino Transferase 37 U/L (5-37); Bilirubin Direct 0.2 mg/dL (0.0-0.5); Bilirubin Total 0.6 mg/dL (0.0-1.0); Blood Urea Nitrogen 8 mg/dL (9-16); Calcium 9.4 mg/dL (8.4-10.2); Carbon Dioxide 25 mmol/L (22-29); Chloride 108 mmol/L (96-108); Creatinine Clr Calc Pharmacy 201.8; Estimated Glomerular Filt Rate > 60; Glucose Random 78 mg/dL (60-115); Magnesium 2.2 mg/dL (1.6-2.6); Potassium 3.8 mmol/L (3.3-5.1); Sodium 140 mmol/L (135-145); Total Protein 7.3 g/dL (6.5-8.0)
[2024-11-05 09:09] LABS: Troponin-I High Sensitivity 4.4 ng/L (<3.5-35.0)
--- OUTSIDE RECORDS SUMMARY | 2024-11-05 09:11 | XMS_ITS | Encounter Summary ---
Author Organization [employer] Address [address] [place] [address] Care Team Providers Care Make Up Girl Name Role Phone Unavailable Primary Care Provider Unavailabl e Reason for Visit * Reason Onset Date Comments reschedule extraction appt 06/24/2024 Encounter Details Date Type Department Care Team (Late st Contact Info) Description 06/24/2024 Telephone [facility] [address] [place] [address] Willie Collins DDS [address] [place] [address] reschedule extraction appt Social History Tobacco Use [...]
--- OUTSIDE RECORDS SUMMARY | 2024-11-05 09:11 | XMS_ITS | Clinical Summary ---
Author Organization [facility] Address [address] [place] [address] Care Team Providers Care Human Geography Instructor Name Role Phone Unavailable Primary Care Provider [...] Team Description 10/11/2024 Population Health Risk Score [facility] ([facility]) Department [address] [place] [address] [phone] Provider, Population Health Generic 09/10/2024 2:30 PM EST Office Visit [facility] [address] [place] [address] Roe Hussein DDS from Last 3 Months [...] Recently Relevant to Health Maintenance Insurance [facility] MEDICAID STAND ADULT
[2024-11-05 09:17] VITALS: PULSE 68; RESP 22; O2SAT 99
[2024-11-05] MEDS: methADONE HCl 20 MG/2 ML ORAL.CONC 40 MG PO (09:17)
[2024-11-05 09:27] LABS: Influenza A PCR NEGATIVE (Negative); Influenza B PCR NEGATIVE (Negative); Resp Syncy Virus RNA Qual PCR NEGATIVE (Negative); SARS COV2 PCR INHOUSE NEGATIVE (Negative)
[2024-11-05 10:00] VITALS: BP 158/97; PULSE 75; RESP 16; TEMP 37; O2SAT 97
[2024-11-05 10:38] VITALS: BP 158/97; PULSE 75; RESP 16; TEMP 37; O2SAT 97
== END 2024-11-05 10:44 | disposition home or self-care (01) ==
PROVIDERS: Physician Assistant; Emergency Provider Emergency Medicine
DX: L03.116 Cellulitis of left lower limb (principal); F11.13 Opioid abuse with withdrawal; R51.9 Headache, unspecified; I10 Essential (primary) hypertension; J45.909 Unspecified asthma, uncomplicated; Z87.820 Personal history of traumatic brain injury; F19.10 Other psychoactive substance abuse, uncomplicated; Z03.818 Encounter for observation for suspected exposure to other biological agents ruled out
CPT/HCPCS: 0241U; 12001; 36415; 80048; 80076; 83735; 83880; 84484; 85025; 93005; 99283; 99284

== ENCOUNTER → 2024-11-05 08:04 | Outpatient (BNV) | payer MEDICAID, SELFPAY | PROVIDERS: Emergency Provider Emergency Medicine; Visit Provider Internal Medicine Cardiovascular Disease | DX: R07.9 Chest pain, unspecified (principal) | CPT/HCPCS: 93010 ==

== ENCOUNTER 2024-11-09 23:30 | Emergency (ER) | payer MEDICAID, SELFPAY ==
--- NOTE | ~2024-11-09 | XR_ITS ---
CLINICAL HISTORY: cough 1 view chest x-ray Comparison: CR/NY/SR - XR CHEST 1V - 06/04/24 12:02 EST Findings: The lungs are clear. Normal size heart. No acute fracture. IMPRESSION: 1. No acute findings. This document has been electronically signed by: Shannon Silva MD on 11/10/2024 00:41:57
--- NOTE | ~2024-11-09 | CT_ITS ---
CLINICAL HISTORY: Syncope, head strike, LOC times [address] head without contrast COMPARISON: None FINDINGS: No acute intracranial hemorrhage, extra-axial fluid collection, mass effect, or midline shift. Ventricular system and basilar cisterns are patent. Doss-white matter differentiation is maintained. No gross orbital abnormality. No suspicious or acute bone lesion. Mastoid air cells and paranasal sinuses are predominantly clear. IMPRESSION: 1. No acute intracranial abnormality. This document has been electronically signed by: Manuel Capellan MD on 11/10/2024 02:42:54
--- NOTE | ~2024-11-09 | CT_ITS ---
CLINICAL HISTORY: Fall forward onto face, R O facial fracture CT maxillofacial without contrast Comparison: None Findings: No acute fractures. No dislocations. Temporomandibular joints are intact. Paranasal sinuses and mastoid air cells clear. Orbits normal. Visualized intracranial contents are within normal limits. No foreign bodies. IMPRESSION: Unremarkable maxillofacial CT. This document has been electronically signed by: Manuel Capellan MD on 11/10/2024 02:46:43
--- NOTE | ~2024-11-09 | CT_ITS ---
CLINICAL HISTORY: Fall, neck pain, rule out fracture CT cervical spine without contrast Comparison: None Findings: Normal vertebral body alignment. No significant degenerative change. No acute fractures or dislocations. Visualized intracranial contents are unremarkable. No cervical fluid collections or masses. Lung apices are clear. IMPRESSION: No acute findings. This document has been electronically signed by: Manuel Capellan MD on 11/10/2024 02:50:16
[2024-11-09 23:33] VITALS: BP 166/98; PULSE 116; O2SAT 96
[2024-11-09 23:36] VITALS: BP 138/94; PULSE 108; RESP 20; TEMP 36.9; O2SAT 96; BMI 39.0
[2024-11-10 00:17] LABS: MANUAL DIFF FLAG NO
[2024-11-10 00:18] LABS: Basophils Percent Auto 0.3 % (0-2); Eosinophils Percent Auto 0.1 % (0-4); Hematocrit 48.2 % (42.0-52.0); Hemoglobin 16.7 g/dl (14.0-18.0); Imm Gran Abs Auto 0.06 X10*3/uL (0.00-0.03); Imm Gran Pct Auto 0.8 % (0.0-0.4); Lymphocytes Absolute Auto 0.6 X10*3/uL (1.2-4.9); Lymphocytes Percent Auto 8.2 % (20-40); Mean Corpuscular HGB Conc 34.6 g/dl (31.0-36.0); Mean Corpuscular Volume 86.7 fL (80.0-98.0); Monocytes Absolute Auto 1.4 X10*3/uL (0.1-1.2); Monocytes Percent Auto 18.4 % (2-11); Neutrophils Absolute Auto 5.4 x10*3/uL (2.0-8.3); Neutrophils Percent Auto 72.2 % (45-73); Platelet Count 262 X10*3/uL (160-400); Red Blood Count 5.56 X10*6/uL (4.60-5.80); White Blood Count 7.4 X10*3/uL (4.8-10.8)
[2024-11-10 00:45] LABS: Alanine Aminotransferase 57 U/L (0-40); Albumin Level 3.9 g/dL (3.5-5.0); Alkaline Phosphatase 65 U/L (39-117); Anion Gap 15 (12-20); Aspartate Amino Transferase 36 U/L (5-37); Bilirubin Total 0.4 mg/dL (0.0-1.0); Blood Urea Nitrogen 10 mg/dL (9-16); Calcium 9.3 mg/dL (8.4-10.2); Carbon Dioxide 25 mmol/L (22-29); Chloride 100 mmol/L (96-108); Creatinine Clr Calc Pharmacy 190.1; Estimated Glomerular Filt Rate > 60; Glucose Random 106 mg/dL (60-115); Potassium 4.4 mmol/L (3.3-5.1); Sodium 136 mmol/L (135-145); Total Protein 7.7 g/dL (6.5-8.0)
[2024-11-10 01:01] LABS: Influenza A PCR NEGATIVE (Negative); Influenza B PCR NEGATIVE (Negative); Resp Syncy Virus RNA Qual PCR NEGATIVE (Negative); SARS COV2 PCR INHOUSE POSITIVE (Negative)
--- NOTE | 2024-11-10 01:02 | ED_ITS ---
HPI - Fall General Chief Complaint: Fall Stated Complaint: FALL/COVID+ Time Seen by Provider: 11/10/24 00:46 Source: patient Mode of arrival: EMS Limitations: language barrier (Egyptian speaking) History of Present Illness ED Provider: Dr. Jasvir Winters HPI Narrative: 34-year-old male who presents emergency department for evaluation of fever, chills, cough, body aches, headache, nausea, vomiting times 4-5 days with a weakness x2 days and 2 falls today. Patient was currently at [facility] for psychiatric treatment. States he has been sick for 4 days and he did test positive for COVID-19 today. He states that he was having pain over his entire body and he was having weakness in his arms and legs. He states that twice today he was legs were weak and he fell. States that prior to coming to the emergency department he fell forward hitting his face and having a loss of consciousness for 20 minutes. He was also complaining of shortness of breath. The patient has a history of smoking crack cocaine use and smokes heroin. Related Data Previous Rx's ?Medication ?Instructions ?Recorded cephalexin 500 mg capsule 500 mg PO Q6H 7 days #28 caps 11/05/24 Allergies Allergy/AdvReac Type Severity Reaction Status Date / Time bee pollen [BEE STINGS] Allergy Unknown SWELLING Verified 11/09/24 23:37 acetaminophen Allergy Swelling Verified 11/09/24 23:37 ibuprofen Allergy Swelling Verified 11/09/24 23:37 seafood Allergy Itching Verified 11/09/24 23:37 Review of Systems 2 Review of Systems: Yes Unobtainable due to mental status PMFSH Past Medical History [facility] Narrative: Social history: He denies tobacco and alcohol use. He does use smoked heroin and smokes crack cocaine Medical History TBI (traumatic brain injury) HTN (hypertension) Social History Social History Alcohol intake: never Patient Tobacco Use Status: Never used Tobacco Substance Use Type: Marijuana Physical Exam 2 Vital Signs: Vital Signs: Last Vital Signs Temp 98.2 F 11/10/24 06:22 Pulse 99 11/10/24 06:22 Resp 18 11/10/24 06:22 BP 147/99 H 11/10/24 06:22 Pulse Ox 97 11/10/24 06:22 O2 Del Method Room Air 11/10/24 06:22 BMI result Body Mass Index 39.0 Vital signs revealed an elevated [id number], elevated blood pressure of 138/94, elevated respiratory rate of 20. O2 saturation was 96% on room air which was normal Exam: General: Awake, alert in no distress Head: Normocephalic, atraumatic EENT: PERRL, Lids normal, sclera normal, conjunctiva normal, nose normal , ears normal, throat without erythema or exudates Neck: Supple, no adenopathy Lung: breath sounds symmetric, no wheezing, rales or rhonchi Chest: symmetric movement, nontender Heart: regular rate and rhythm, normal S1, S2 no murmurs or rubs Abdomen: soft, non-tender, nondistended, normal bowel sounds Back: no vertebral tenderness, no CVAT Extremities: no deformities, moves all extremities symmetrically Neuro: Awake, alert, oriented, normal speech, cranial nerves intact, the patient has symmetric weakness of his upper and lower extremities I was unable to obtain any reflexes in his extremities. Psych: Pleasant, cooperative Medications Administered Discontinued Medications Generic Name Dose Route Start Last Admin Trade Name Freq PRN Reason Stop Dose Admin Sodium Chloride 1,000 mls @ 999 mls/hr 11/10/24 01:15 11/10/24 03:23 Ns IV 11/10/24 02:15 Infused .Q1H1M STA Infusion Sodium Chloride 1,000 mls @ 999 mls/hr 11/10/24 03:25 11/10/24 04:11 Ns IV 11/10/24 04:25 Not Given .Q1H1M STA Morphine Sulfate 4 mg 11/10/24 01:16 11/10/24 01:40 Morphine Sulfate 4 Mg/Ml Cartridge IVPUSH 11/10/24 01:17 4 mg ONCE STA Administration Protocol Morphine Sulfate 4 mg 11/10/24 03:25 11/10/24 04:10 Morphine Sulfate 4 Mg/Ml Cartridge IVPUSH 11/10/24 03:26 Not Given ONCE STA Protocol Ondansetron HCl 4 mg 11/10/24 01:15 11/10/24 01:40 Ondansetron Hcl 4 Mg/2 Ml Vial IVPUSH 11/10/24 01:16 4 mg ONCE ONE Administration Ondansetron HCl 4 mg 04/13/25 03:25 11/10/24 04:10 Ondansetron Hcl 4 Mg/2 Ml Vial IVPUSH 11/10/24 03:26 Not Given ONCE ONE Procedures Lumbar Puncture Time Out Performed: No Patient Position: upright Local Anesthetic: lidocaine 1% Amount of anesthesia used (mL): 5 Spinal Needle Gauge: 22G Interspace Used: L4-L5 Fluid Initially Obtained: clear and bloody (Initially bloody secondary to traumatic tap but then cleared by the 4th tube) Complications: none Additional Comments: Patient gave informed written consent prior to the procedure. Procedure was done in the sitting position with the patient leaning over a bedside table. Patient had minimal pain from the procedure and had no complications from the procedure. Medical Decision Making Medical Decision Making MDM Narrative: 34-year-old male who presents emergency department for evaluation of fever, chills, cough, body aches, headache, nausea, vomiting times 4-5 days with a weakness x2 days and 2 falls today. Patient was currently at [facility] for psychiatric treatment. States he has been sick for 4 days and he did test positive for COVID-19 today. He states that he was having pain over his entire body and he was having weakness in his arms and legs. He states that twice today he was legs were weak and he fell. States that prior to coming to the emergency department he fell forward hitting his face and having a loss of consciousness for 20 minutes. He was also complaining of shortness of breath.The patient has a history of smoking crack cocaine use and smokes heroin.Vital signs revealed an elevated [id number], elevated blood pressure of 138/94, elevated respiratory rate of 20. O2 saturation was 96% on room air which was normal. Exam did reveal weakness of his upper and lower extremities with difficulty obtaining reflexes. Differential diagnosis: ?Includes but is not limited to viral syndrome, COVID- 19, influenza, RSV, Guillain-Pensac[place] syndrome,skull fracture, intracranial bleed, facial fracture, neck fracture, anemia, electrolyte abnormalities Course: My interpretation patient's laboratory evaluation as follows: CBC was normal. CMP was normal except for an elevated ALT of 57. Influenza, RSV were negative. COVID-19 was positive. Chest x-ray was unremarkable. I did order morphine 4 mg IV, Zofran 4 mg IV and normal saline x1 L. I am concerned that the patient may have Guillain-P[place]ac[place] syndrome therefore I will obtain spinal fluid for testing. 03:27 CT scan of the head, cervical spine and face revealed no acute findings. The patient did give me written informed consent to do a spinal tap, these spinal tap was done in the seated position. I was able to easily obtain spinal fluid from the patient and this was sent to the lab for testing. Patient was complaining of headache again and he was given a another dose of morphine 4 mg IV, Zofran 4 mg IV and a 2 L of normal saline IV. At the end of my shift, the patient's care was turned over to my colleague, Dr. Nancy Danielson pending CSF fluid results. CSF without any albuminocytologic dissociation protein was 26.9 cell count was only 5. Will discharge patient back to [facility] Admission/Observation Consideration of admission/observation: Escalation of care including admission/observation considered (Yes) Lab Data MDM Lab Attestation statement: I reviewed the patient's lab results. 11/10/24 00:12 11/10/24 00:12 Labs: Lab Results 11/10/24 11/10/24 11/10/24 Range/Units 00:12 03:23 03:23 WBC 7.4 (4.8-10.8) X10*3/uL RBC 5.56 (4.60-5.80) X10*6/uL Hgb 16.7 (14.0-18.0) g/dl Hct 48.2 (42.0-52.0) % MCV 86.7 (80.0-98.0) fL MCH 30.0 (27.0-33.0) pg MCHC 34.6 (31.0-36.0) g/dl RDW 12.0 (11.0-16.0) % Plt Count 262 (160-400) X10*3/uL MPV 9.0 L (9.4-12.4) fL Immature Gran % (Auto) 0.8 H (0.0-0.4) % Neut % (Auto) 72.2 (45-73) % Lymph % (Auto) 8.2 L (20-40) % Marshall % (Auto) 18.4 H (2-11) % Eos % (Auto) 0.1 (0-4) % Baso % (Auto) 0.3 (0-2) % Lymph # (Auto) 0.6 L (1.2-4.9) X10*3/uL Marshall # (Auto) 1.4 H (0.1-1.2) X10*3/uL Eos # (Auto) 0.0 (0.0-0.4) X10*3/uL Baso # (Auto) 0.0 (0.0-0.2) X10*3/uL Abs Immat Gran (auto) 0.06 H (0.00-0.03) X10*3/uL Absolute Neuts (auto) 5.4 (2.0-8.3) x10*3/uL Absolute Nucleated RBC 0.000 (0.0-0.012) X10*3/uL Nucleated RBC % (auto) 0.0 (0.0-0.2) /100WBC Sodium 136 (135-145) mmol/L Potassium 4.4 (3.3-5.1) mmol/L Chloride 100 (96-108) mmol/L Carbon Dioxide 25 (22-29) mmol/L Anion Gap 15 (12-20) BUN 10 (9-16) mg/dL Creatinine 0.75 (0.5-1.4) mg/dL Estim Creat Clear Calc 190.1 Estimated GFR > 60 Random Glucose 106 (60-115) mg/dL Calcium 9.3 (8.4-10.2) mg/dL Total Bilirubin 0.4 (0.0-1.0) mg/dL AST 36 (5-37) U/L ALT 57 H (0-40) U/L Alkaline Phosphatase 65 (39-117) U/L Total Protein 7.7 (6.5-8.0) g/dL Albumin 3.9 (3.5-5.0) g/dL CSF Tube Number 2 4 CSF Volume 2.0 ML CSF Appearance CLEAR CSF Color COLORLESS CSF WBC 5 MM*3 CSF RBC 0 MM*3 CSF Lymphocytes 100 % CSF Appearance (b) Clear, Colorless CSF Glucose 68 mg/dL CSF Total Protein 26.9 (15-45) mg/dL Influenza Type A (PCR) NEGATIVE (Negative) Influenza Type B (PCR) NEGATIVE (Negative) RSV RNA Qual (PCR) NEGATIVE (Negative) SARS-CoV-2 RNA (RT-PCR) POSITIVE A (Negative) Independent Interpretation I performed an independent interpretation of an: Plain X-Ray Interpretation: My interpretation patient's one-view chest x-ray is as follows: No acute disease Radiology Impression Discussion of test interpretation with radiology: I have reviewed the radiologist's reading. Radiologist Impression: 1 view chest x-ray Comparison: CR/MI/SR - XR CHEST 1V - 06/04/24 12:02 EST Findings: The lungs are clear. Normal size heart. No acute fracture. IMPRESSION: 1. No acute findings. This document has been electronically signed by: Shannon Silva MD on 11/10/2024 00:41:57 External Record Review External record reviewed: Outside ED record Chronic Conditions Patient?s care impacted by: Other (Polysubstance use disorder, depression) Critical Care Time Critical Care Time Critical Care Time: Yes Total Critical Care Time: 35 Attestation: Critical Care: The patient was critically ill with a high probability of imminent or life threatening deterioration. I spent greater than 30 minutes of discontinuous time evaluating the patient,delivering critical care at the bedside, discussing and evaluating pertinent data with consultants. Critical care time does not include time spent performing separately billable procedures or teaching. Total time spent performing critical care was 35 minutes. Discharge Plan Discharge Clinical Impression: Fall, COVID-19 virus infection, Weakness, Closed head injury, Contusion of face Patient Disposition: Home, Self-Care Instructions: Head Injury (ED), COVID-19 (Coronavirus Disease 2019) (ED) Additional Instructions: You had a CBC and CMP blood tests which were unremarkable. The CT scan of your head, neck and face revealed no broken bones or bleeding in your brain. Your chest x-ray was normal with no signs of pneumonia on your x-ray. You were treated in the emergency department with normal saline IV x2, morphine 4 mg IV x2, Zofran 4 mg IV x2. Your spinal fluid test results revealed normal protein level Continue taking medications as prescribed by your providers Follow-up with your doctor in 2 days. Please return to the emergency department if your symptoms get worse or if you develop any symptoms that are concerning to you. Prescriptions: No Action cephalexin 500 mg capsule 500 mg PO Q6H 7 Days Qty: 28 0RF Interventions: ED Discharge Assessment Last Done: 11/10/24 06:22 Discharge Date/Time: 11/10/24 06:39 Print Language: Egyptian
[2024-11-10] MEDS: ondansetron HCL 4 MG/2 ML VIAL IVPUSH (01:40)
[2024-11-10] MEDS: Morphine Sulfate 4 MG/ML CARTRIDGE IVPUSH (01:40)
[2024-11-10] MEDS: 0.9 % Sodium Chloride 1,000 ML 999 ML IV (01:40)
[2024-11-10 03:29] LABS: Appearance CSF CLEAR; CSF Tube # 4
[2024-11-10 03:30] LABS: Color CSF COLORLESS
[2024-11-10 03:49] LABS: Red Blood Cell CSF 0 MM*3; White Blood Cell CSF 5 MM*3
[2024-11-10 04:07] LABS: CSF Appearance Clear, Colorless; CSF Tube # 2
--- NOTE | 2024-11-10 04:10 | PC.NURSE ---
meds not given as patient is snoring and does not appear to be in any pain or distress. MD Winters aware
[2024-11-10 04:11] LABS: Glucose CSF 68 mg/dL; Total Protein CSF 26.9 mg/dL (15-45)
[2024-11-10 04:19] LABS: Lymphocytes CSF 100 %
--- NOTE | 2024-11-10 05:50 | PC.NURSE ---
report called to concha kyle RN waiting for ambulance transport back to facility
[2024-11-10 06:21] VITALS: BP 147/99; PULSE 99; RESP 18; TEMP 36.8; O2SAT 97
[2024-11-10 06:22] VITALS: BP 147/99; PULSE 99; RESP 18; TEMP 36.8; O2SAT 97
== END 2024-11-10 06:39 | disposition home or self-care (01) ==
PROVIDERS: Emergency Provider Emergency Medicine Emergency Medical Services
DX: S00.83XA Contusion of other part of head, initial encounter (principal); U07.1 COVID-19; R11.2 Nausea with vomiting, unspecified; R53.1 Weakness; M54.2 Cervicalgia; R55 Syncope and collapse; R51.9 Headache, unspecified; R06.02 Shortness of breath; X58.XXXA Exposure to other specified factors, initial encounter; Y93.9 Activity, unspecified; Y92.9 Unspecified place or not applicable; Y99.8 Other external cause status; Z79.899 Other long term (current) drug therapy
CPT/HCPCS: 0241U; 62272; 70450; 70486; 71045; 72125; 80053; 82945; 84157; 85025; 87015; 87070; 87205; 89051; 96361; 96374; 96375; 99284; J2270; J2405

== ENCOUNTER → 2024-11-09 23:51 | Outpatient (BNV) | payer MEDICAID, SELFPAY | PROVIDERS: Emergency Provider Emergency Medicine Emergency Medical Services; Visit Provider Radiology Diagnostic Radiology | DX: R05.9 Cough, unspecified (principal) | CPT/HCPCS: 71045 ==

== ENCOUNTER → 2024-11-10 00:52 | Outpatient (BNV) | payer MEDICAID, SELFPAY | PROVIDERS: Emergency Provider Emergency Medicine Emergency Medical Services; Visit Provider Radiology Diagnostic Radiology | DX: M54.2 Cervicalgia (principal); S09.93XA Unspecified injury of face, initial encounter; R55 Syncope and collapse | CPT/HCPCS: 70450; 70486; 72125 ==

== ENCOUNTER 2025-02-19 15:31 | Outpatient (REF) | payer MEDICAID, SELFPAY ==
--- OUTSIDE RECORDS SUMMARY | 2025-02-19 15:47 | XMS_ITS | Encounter Summary ---
Author Organization [employer] Address [address] [place] [address] [address] [place] [address] Care Team Providers Care Customer Service Advocate Name Role Phone Lorenzo Albarran MD Primary Care Provider Janay Banks RN Unavailable [phone] Eliz Zhao Unavailable Reason for Visit * Reason Onset Date Comments Med Refill 02/19/2025 Encounter Details Date Type Department Care Team (Late Contact Info) Description 02/19/[address] [address] Remberto Pacheco, RN [address] [place] [id number] Uncomplicated opioid dependence (CMS/[facility]) Social History Tobacco Use Types Packs/Day Years Used Date Smoking Tobacco: Never Passive Smoke Exposure: Never Smokeless Tobacco: Never Depression Answer Date Recorded Patient Health Questionnaire-9 Score 24 02/04/2025 Patient Health Questionnaire-9 Score 24 02/04/2025 Last PHQ-9: Questionnaire Data Not on file 0 02/04/2025 Depression Answer Date Recorded Patient Health Questionnaire-2 Score 6 02/04/2025 Sex and Gender Information Value Date Recorded Sex Assigned at Male 05/30/2022 10:16 AM EDT Legal Sex Male 10:16 AM EDT Gender Identity Male 02/07/2025 2:15 PM EDT Sexual Orientation Straight 02/07/2025 2: 15 PM EDT documented as of this encounter Plan of Treatment Upcoming Encounters Date Type Department Care Team (Late Contact Info) Description 02/26/2025 10:45 AM EDT Clinical Support [facility] [address] [place] [phone] Kusum Huerta RN 03/05/2025 10:15 AM EDT Clinical Support [facility] [address] [place] [address] Remberto Pacheco, KLARISSA [address] [place] [address] 03/28/2025 2:30 PM EDT Office Visit [facility] [address] [place] [address] Roe Hussein DDS [address] [place] [address] 04/24/2025 2:30 PM EDT Office Visit [facility] [address] [place] [address] Lorenzo Albarran MD [address] [place], [place] documented as of this encounter Goals Goal Patient Goal Type Associated Problems Recent Progress Patient-Stated? Author Increase coping skills to promote long-term recovery and improve ability to perform daily activities General No Remberto Pacheco, KLARISSA Reduce tobacco use (cigarettes, smokeless, etc) Tobacco Use No Remberto Pacheco, KLARISSA Note: Smoking 1 cigarette/day 02/07/25 documented as of this encounter Visit Diagnoses Diagnosis Uncomplicated opioid dependence (CMS/HCC) documented in this encounter Additional Health Concerns Assessment Noted Time PHQ-9 Depression Total Score: 24 025 12:06 PM EDT documented as of this encounter Care Teams Customer Service Advocate Relationship Specialty Start Date End Date Lorenzo Albarran MD [address] [place] [address] PCP - General Internal Medicine 11/11/24 Janay Banks, KLARISSA [address] [place], [place] Registered Nurse Family Medicine 01/22/25 Eliz Zhao 01/22/25 documented as of this encounter
--- OUTSIDE RECORDS SUMMARY | 2025-02-19 15:47 | XMS_ITS | Clinical Summary ---
Author Organization [facility] Address [address] [place] [address] Care Team Providers Care Orthopedic Cast Specialist Name Role Phone Unavailable Primary Care Provider Unavailabl e Source Comments PLEASE NOTE, if this patient is a minor, it may be UNLAWFUL to discuss sensitive information that is contained in these records (such as FAMILY PLANNING, MENTAL HEALTH or SUBSTANCE ABUSE) with the minor patient's parent or other person without the patient's specific authorization.[facility] Social History Tobacco Use Types Packs/Day Years Used Date Smoking Tobacco: Never Assessed Sex and Gender Information Value Date Recorded Sex Assigned at Male 02/14/2025 7:18 AM PDT Legal Sex Male 7:18 AM PDT Gender Identity Male 02/14/2025 7:18 AM PDT Sexual Orientation Not on file Plan of Treatment Upcoming Encounters Date Type Department Care Team (Late st Contact Info) Description 03/20/2025 11:00 AM EDT Behavioral Health Visit [facility] [address] [place] [id number] Nadya Velez APRN [address] [place] [address] Health Maintenance Due Date Last Done Comments Anxiety Screening 1991 Hepatitis C Screening 1991 Tobacco Screening 1991 HIV Screening 2006 Hypertension Screening (#1) 2009 Sth-[id number] ( season) 2024 Alcohol and Drug Screen 07/31/2024 Depression Annual Screen 07/31/2024 Imm-Influenza (#1) 2025 10/03/2012 Imm-DTaP/Tdap/Td (4 - Td or Tdap) 09/27/2033 09/27/2023, 08/04/2010, 03/26/2001 Imm-Hepatitis B Completed 03/31/1996, 07/1994, 01/28/1995 Insurance [place] [employer]
[2025-02-19 17:11] LABS: Alanine Aminotransferase 169 U/L (0-40); Albumin Level 4.0 g/dL (3.5-5.0); Alkaline Phosphatase 57 U/L (39-117); Aspartate Amino Transferase 59 U/L (5-37); Total Protein 6.9 g/dL (6.5-8.0)
[2025-02-20 07:54] LABS: Syphilis Screen Nonreactive (Nonreactive)
[2025-02-20 08:19] LABS: HBS Num1 > 1000.00 mIU/mL (0-7.99); HBc Num1 0.06 S/CO (0.00-0.79); HBsAGNum1 0.28 S/CO (0.00-0.99); HIV Num 1 0.06 S/CO (0.00-0.99); Hepatitis B Surface Antigen Negative (Negative); ~HepC Num1 0.12 S/CO (0.00-0.79); ~Hepatitis B Surface Antibody REACTIVE (Nonreactive); ~Hepatitis C Antibody Nonreactive (Nonreactive)
[2025-02-21 04:09] LABS: ~Hepatitis A Antibody IgG 3.07 S/CO (0.00-0.99)
[2025-02-22 08:28] LABS: TS Negative Control Passed; TS Panel A 0; TS Panel B 0; TS Positive Control Passed; TSpotTB Negative (Negative)
== END 2025-02-19 15:32 | disposition home or self-care (01) ==
LOC: HO.HHCL 15:31
PROVIDERS: Family Medicine; PCP Family Medicine; Visit Provider Nurse Practitioner Adult Health
DX: Z11.1 Encounter for screening for respiratory tuberculosis (principal); Z11.3 Encounter for screening for infections with a predominantly sexual mode of transmission; Z11.4 Encounter for screening for human immunodeficiency virus [HIV]; Z11.59 Encounter for screening for other viral diseases; F11.20 Opioid dependence, uncomplicated
CPT/HCPCS: 36415; 80076; 86481; 86704; 86706; 86708; 86780; 86803; 87340; 87389

== ENCOUNTER 2025-03-04 15:59 | Outpatient (REF) | payer MEDICAID, SELFPAY ==
--- OUTSIDE RECORDS SUMMARY | 2025-03-04 16:10 | XMS_ITS | Encounter Summary ---
Author Organization [employer] Address [address] [place] [address] [address] [place] [address] Care Team Providers Care Healthcare Account Manager Name Role Phone Lorenzo Albarran MD Primary Care Provider Eliz Zhao Unavailable Shanique Zhao RN Unavailable [phone] Encounter Details Date Type Department Care Team (Late Contact Info) Description 02/24/2025 Orders Only [facility] [address] [place] [address] Mar Portillo MD [address] [place] [address] Social History Tobacco Use Types Packs/Day Years [...] Department Care Team (Late Contact Info) Description 03/05/2025 10:15 AM EDT Clinical Support [facility] [address] [place] [phone] Remberto Pacheco, KLARISSA [address] [place] [address] 03/12/2025 11:00 AM EDT Office Visit [facility] [address] [place] [address] Mar Portillo MD [address] [place] [address] 03/28/2025 2:30 PM EDT Office Visit [facility] [address] [place] [address] Roe Hussein DDS [address] [place] [address] 04/24/2025 2:30 PM EDT Office Visit [facility] [address] [place] [address] Lorenzo Albarran MD [address] [place] [address] documented as of this encounter Goals Goal [...] Diagnoses Not on filedocumented in this encounter Additional Health Concerns Assessment Noted Time PHQ-9 Depression Total Score: 24 025 12:06 PM EDT documented as of this encounter Care Teams Healthcare Account Manager Relationship Specialty Start Date End Date Lorenzo Albarran MD [address] [place], [place] [phone] PCP - General Internal Medicine 11/11/24 Eliz Zhao 01/22/25 Shanique Zhao RN [address] [place], [place] [phone] Registered Nurse Family Medicine 02/21/25 documented as of this encounter
--- OUTSIDE RECORDS SUMMARY | 2025-03-04 16:11 | XMS_ITS | Clinical Summary ---
Author Organization [facility] Address [address] [place] [address] Care Team Providers Care Lightout Examiner Name Role Phone Unavailable Primary Care Provider [...] EDT Behavioral Health Visit [facility] [address] [place] [phone] Nadya Velez APRN [address] [place] [address] Health Maintenance Due Date Last Done Comments Anxiety Screening 1991 Hepatitis C Screening 1991 Tobacco Screening 1991 HIV Screening 2006 Hypertension Screening (#1) 2009 [id number] ( season) 2024 Alcohol and Drug Screen 07/31/2024 Depression Annual Screen 07/31/2024 Imm-Influenza (#1) 2025 10/03/2012 Imm-DTaP/Tdap/Td (4 - Td or Tdap) 09/27/2033 09/27/2023, 08/04/2010, 03/26/2001 Imm-Hepatitis B Completed 03/31/1996, 07/1994, 01/28/1995 Insurance [place] [employer]
--- OUTSIDE RECORDS SUMMARY | 2025-03-04 16:11 | XMS_ITS | Encounter Summary ---
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 Social History Tobacco Use Types Packs/Day Years Used Date Smoking Tobacco: Never Assessed Sex and Gender Information Value Date Recorded Sex Assigned at Not on file Legal Sex Male 10:42 AM EDT Gender Identity Not on file Sexual Orientation Not on file documented as of this encounter Plan of Treatment Upcoming Encounters Date Type Department Care Team (Late st Contact Info) Description 04/22/2025 10:10 AM EDT Consult Gastroenterology - [address] [place] [id number] Sujey Bland PA [address] [facility] [address] [address] documented as of this encounter Procedures Procedure Name Priority Date/Time Associated Diagnosis Comments LIPID PANEL WITH REFLEX TO DIRECT LDL Routine 11/07/2024 7:00 AM EDT Other alf (current) drug therapy CBC WITH AUTO DIFFERENTIAL Routine 11/07/2024 7:00 AM EDT 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 CBC AND DIFFERENTIAL Routine 11/07/2024 7:00 AM EDT Other alf (current) drug therapy HEMOGLOBIN A1C Routine 11/07/2024 7:00 AM EDT Other alf (current) drug therapy COMPREHENSIVE METABOLIC PANEL Routine 11/07/2024 7:00 AM EDT 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 documented in this encounter Results * (ABNORMAL) CBC auto differential (11/07/2024 7:00 AM EDT) [facility] WBC 7.3 4.8 - 10.8 K/mcL LAB HEMETOLOGY METHOD 11/07/2024 11:32 AM [facility] RBC 5.70(H) 4.50 - 5.50 M/mcL LAB HEMETOLOGY METHOD 11/07/2024 11:32 AM [facility] Hemoglobin 17.2 13.5 - 17.5 g/dL LAB HEMETOLOGY METHOD 11/07/2024 11:32 AM [facility] Hematocrit 51.7 42.0 - 54.0 % LAB HEMETOLOGY METHOD 11/07/2024 11:32 AM [facility] MCV 90.9 79.0 - 98.0 FL LAB HEMETOLOGY METHOD 11/07/2024 11:32 AM [facility] MCH 30.2 27.0 - 32.0 pcg LAB HEMETOLOGY METHOD 11/07/2024 11:32 AM [facility] MCHC 33.3 32.0 - 37.0 g/dL LAB HEMETOLOGY METHOD 11/07/2024 11:32 AM [facility] RDW 12.1 11.0 - 15.0 % LAB HEMETOLOGY METHOD 11/07/2024 11:32 AM [facility] Platelets 338 130 - 400 K/mcL LAB HEMETOLOGY METHOD 11/07/2024 11:32 AM [facility] MPV 10.2 7.0 - 11.0 FL LAB HEMETOLOGY METHOD 11/07/2024 11:32 AM [facility] NRBC 0.0 <1.0 % LAB HEMETOLOGY METHOD 11/07/2024 11:32 AM [facility] NRBC Absolute 0.00 <0.10 K/mcL LAB HEMETOLOGY METHOD 11/07/2024 11:32 AM [facility] Neutrophils Relative 52.7 % LAB HEMETOLOGY METHOD 11/07/2024 11:32 AM [facility] Lymphocytes Relative 33.5 % LAB HEMETOLOGY METHOD 11/07/2024 11:32 AM [facility] Monocytes Relative 8.6 % LAB HEMETOLOGY METHOD 11/07/2024 11:32 AM [facility] Eosinophils Relative 3.9 % LAB HEMETOLOGY METHOD 11/07/2024 11:32 AM [facility] Basophils Relative 0.7 % LAB HEMETOLOGY METHOD 11/07/2024 11:32 AM [facility] Immature Granulocytes Relative 0.6 % LAB HEMETOLOGY METHOD 11/07/2024 11:32 AM [facility] Neutrophils Absolute 3.83 1.50 - 7.00 K/mcL LAB HEMETOLOGY METHOD 11/07/2024 11:32 AM [facility] Lymphocytes Absolute 2.43 1.00 - 5.00 K/mcL LAB HEMETOLOGY METHOD 11/07/2024 11:32 AM [facility] Monocytes Absolute 0.62 0.20 - 1.00 K/mcL LAB HEMETOLOGY METHOD 11/07/2024 11:32 AM [facility] Eosinophils Absolute 0.28 0.00 - 0.50 K/mcL LAB HEMETOLOGY METHOD 11/07/2024 11:32 AM EDT [facility] Basophils Absolute 0.05 0.00 - 0.20 K/[facility] LAB HEMETOLOGY METHOD 11/07/2024 11:32 AM EDT [facility] Immature Granulocytes Absolute 0.04(H) 0.00 - 0.03 K/[facility] LAB HEMETOLOGY METHOD 11/07/2024 11:32 AM EDT [facility] Blood Venous blood specimen / Unknown Venipuncture / Unknown 11/07/2024 7:00 AM EDT 11/07/2024 10:47 AM EDT [facility] LAB BLOOD ORDERABLES Final Resul t Performing Organization Address [facility]/ZIP Co de Phone Number [facility] [address] [place] [address], [place] [phone] * Hemoglobin A1c (11/07/2024 7:00 AM EDT) Hemoglobin A1C 5.3 <6.5 % LAB CHEMISTRY METHOD 11/07/2024 1:46 PM EDT [facility] Mean Bld Glu Estim. 105 mg/dL LAB CHEMISTRY METHOD 11/07/2024 1:46 PM EDT [facility] Blood Venous blood specimen / Unknown Venipuncture / Unknown 11/07/2024 7:00 AM EDT 11/07/2024 10:47 AM EDT [facility] LAB BLOOD ORDERABLES Final Resul t Performing Organization Address City/[facility]/ZIP Co de Phone Number [facility] [address] [place] [address], [place] [phone] * Lipid panel with reflex to direct LDL (11/07/2024 7:00 AM EDT) Cholesterol 180 0 - 200 mg/dL LAB CHEMISTRY METHOD 11/07/2024 12:19 PM EDT [facility] Triglycerides 114 0 - 150 mg/dL LAB CHEMISTRY METHOD 11/07/2024 12:19 PM EDT [facility] HDL 67 >=40 mg/dL LAB CHEMISTRY METHOD 11/07/2024 12:19 PM EDT [facility] LDL Calculated 90 0 - 100 mg/dL LAB CHEMISTRY METHOD 11/07/2024 12:19 PM EDT [facility] VLDL Cholesterol Madan 22.8 mg/dL LAB CHEMISTRY METHOD 11/07/2024 12:19 PM [facility] Non HDL Chol. (LDL+VLDL) 113 <145 mg/dL LAB CHE[facility]STR[facility] Chol/HDL Ratio 2.7 0.0 - 4.4 LAB CHEMISTRY METHOD 11/07/2024 12:19 PM [facility] Blood Venous blood specimen / Unknown Venipuncture / Unknown 11/07/2024 7:00 AM EDT 11/07/2024 10:47 AM EDT [facility] LAB BLOOD ORDERABLES Final Resul t [facility] [address] [place] [address], * (ABNORMAL) Comprehensive metabolic panel (11/07/2024 7:00 AM EDT) Sodium 136 133 - 145 mmol/L LAB CHEMISTRY METHOD 11/07/2024 12:19 PM T [facility] Potassium 4.8 3.5 - 5.5 mmol/L LAB CHEMISTRY METHOD 11/07/2024 12:19 PM [facility] Chloride 100 96 - 110 mmol/L LAB CHEMISTRY METHOD 11/07/2024 12:19 PM T [facility] CO2 29 21 - 32 mmol/L LAB CHEMISTRY METHOD 11/07/2024 12:19 PM [facility] Anion Gap 7 3 - 11 LAB CHEMISTRY METHOD 11/07/2024 12:19 PM [facility] Glucose 84 70 - 100 mg/dL LAB CHEMISTRY METHOD 11/07/2024 12:19 PM [facility] BUN 10 5 - 25 mg/dL LAB CHEMISTRY METHOD 11/07/2024 12:19 PM [facility] Creatinine 0.60(L) 0.70 - 1.30 mg/dL LAB CHEMISTRY METHOD 11/07/2024 12:19 PM [facility] eGFR 131 >=60 mL/min/1. 73m2 LAB CHEMISTRY METHOD 11/07/2024 12:19 PM [facility] Comment:Calculation based on the Chronic Kidney Disease Epidemiology Collaboration (CKD-EPI) equation refit without adjustment for race. BUN/Creatinine Ratio 16.7 LAB CHEMISTRY METHOD 11/07/2024 12:19 PM [facility] Calcium 9.1 8.5 - 10.5 mg/dL LAB CHEMISTRY METHOD 11/07/2024 12:19 PM [facility] AST (SGOT) 23 10 - 42 unit/L LAB CHEMISTRY METHOD 11/07/2024 12:19 PM [facility] ALT (SGPT) 37 10 - 60 unit/L LAB CHEMISTRY METHOD 11/07/2024 12:19 PM [facility] Alkaline Phosphatase 70 42 - 121 unit/L LAB CHEMISTRY METHOD 11/07/2024 12:19 PM [facility] Total Protein 7.2 6.0 - 8.0 g/dL LAB CHEMISTRY METHOD 11/07/2024 12:19 PM [facility] Albumin 3.3 3.2 - 5.0 g/dL LAB CHEMISTRY METHOD 11/07/2024 12:19 PM [facility] Total Bilirubin 0.4 0.0 - 1.4 mg/dL LAB CHEMISTRY METHOD 11/07/2024 12:19 PM EDT [facility] Blood Venous blood specimen / Unknown Venipuncture / Unknown 11/07/2024 7:00 AM EDT 11/07/2024 10:47 AM EDT [facility] LAB BLOOD ORDERABLES Final Resul t [facility] [address] [place] [address], documented in this encounter Visit Diagnoses Diagnosis Other alf (current) drug therapy documented in this encounter 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
[2025-03-04 18:05] LABS: MANUAL DIFF FLAG NO
[2025-03-04 18:30] LABS: Hematocrit 37.7 % (42.0-52.0); Hemoglobin 12.8 g/dl (14.0-18.0); Imm Gran Abs Auto 0.08 X10*3/uL (0.00-0.03); Imm Gran Pct Auto 1.2 % (0.0-0.4); Lymphocytes Absolute Auto 2.6 X10*3/uL (1.2-4.9); Mean Corpuscular HGB Conc 34.0 g/dl (31.0-36.0); Mean Corpuscular Hemoglobin 29.7 pg (27.0-33.0); Mean Corpuscular Volume 87.5 fL (80.0-98.0); NRBC Abs Auto 0.000 X10*3/uL (0.0-0.012); NRBC Pct Auto 0.0 /100WBC (0.0-0.2); Platelet Count 337 X10*3/uL (160-400); Red Blood Count 4.31 X10*6/uL (4.60-5.80); White Blood Count 6.8 X10*3/uL (4.8-10.8)
[2025-03-04 18:52] LABS: Alanine Aminotransferase 117 U/L (0-40); Albumin Level 3.8 g/dL (3.5-5.0); Alkaline Phosphatase 58 U/L (39-117); Anion Gap 10 (12-20); Aspartate Amino Transferase 62 U/L (5-37); Blood Urea Nitrogen 13 mg/dL (9-16); Calcium 8.6 mg/dL (8.4-10.2); Carbon Dioxide 25 mmol/L (22-29); Chloride 108 mmol/L (96-108); Cholesterol 216 mg/dL (<200); Estimated Glomerular Filt Rate > 60; HDL Cholesterol 64 mg/dL (>40); Potassium 4.1 mmol/L (3.3-5.1); Sodium 139 mmol/L (135-145); Total Protein 6.4 g/dL (6.5-8.0); Triglycerides 144 mg/dL (<150)
== END 2025-03-04 16:00 | disposition home or self-care (01) ==
LOC: HO.CHCLDS 15:59
PROVIDERS: Visit Provider Internal Medicine
DX: I10 Essential (primary) hypertension (principal); F41.9 Anxiety disorder, unspecified
CPT/HCPCS: 36415; 80053; 80061; 84443; 85025